=== PATIENT | male | born 1955 | race African-American/Black ===

== ENCOUNTER 2018-01-14 12:59 | Emergency (ER) | payer BC ==
[2018-01-14] MEDS ORDERED: Lidocaine 1% w/Epinephrine 1:100K 20 ML VIAL ONE (14:09)
--- NOTE | 2018-01-14 14:48 | RAD ---
LUMBAR SPINE 3 VIEWS: HISTORY: The patient fell off a stool, hitting back. Back pain. Back surgery 2 months ago. COMPARISON: None. FINDINGS: There are bilateral transpedicular screws at L4, L5, and S1. Lumbar spine vertebral body height is m aintained. No fracture. There are 5 lumbar-type vertebral bodies. There are laminectomy defects at L4 on L5. There appears to be perihardware lucency involving bilateral transpedicular screws at S1. There is anterolisthesis of L5 upon S1 which is difficult to assess on the current examination. Ther e is grade I retrolisthesis of L3 upon L4. IMPRESSION: 1. No evidence of fracture. 2. Lumbar fusion changes as above. There appear to be perihardware lucencies involving both transpe dicular screws at S1. POS: [facility]
[2018-01-14] MEDS ORDERED: Adacel (T-DAP) 0.5 ML VIAL ONE (15:13)
[2018-01-14] MEDS ORDERED: Bacitracin Zinc 1 Packet ONE (16:55)
== END 2018-01-14 17:02 | disposition home or self-care (01) ==
LOC: ERS 12:59
DX: S31.010A Laceration without foreign body of lower back and pelvis without penetration into retroperitoneum, initial encounter (principal); E11.9 Type 2 diabetes mellitus without complications; I10 Essential (primary) hypertension; E78.00 Pure hypercholesterolemia, unspecified; K21.9 Gastro-esophageal reflux disease without esophagitis; Z79.899 Other long term (current) drug therapy; W01.0XXA Fall on same level from slipping, tripping and stumbling without subsequent striking against object, initial encounter
CPT/HCPCS: 12002; 72100; 90471; 90715; J2001

== ENCOUNTER 2018-01-20 13:31 | Outpatient (CLI) | payer BC, OTHER ==
--- NOTE | 2018-01-20 13:58 | RAD ---
LUMBAR SPINE SERIES 2 VIEWS: HISTORY: Low back pain. COMPARISON: A 01/14/18 study. FINDINGS: Postoperative changes with bilateral pedicle screws placed L4, L5, and S1 are noted. Marked spondylo listhesis of L5 on S1 appears to be fairly similar to the previous study. I do not see any definite interval change since the prior exam. IMPRESSION: Stable exam. POS: [facility]
== END 2018-01-20 13:32 | disposition home or self-care (01) ==
LOC: TBSIIMAG 13:31
PROVIDERS: ATTEND Neurological Surgery
DX: M54.5 Low back pain (principal)
CPT/HCPCS: 72100

== ENCOUNTER 2018-04-21 12:42 | Outpatient (CLI) | payer BC ==
--- NOTE | 2018-04-21 13:25 | RAD ---
LUMBAR SPINE 2 VIEWS: INDICATION: Lumbar radiculopathy. COMPARISON: Lumbar films of 01/20/18. FINDINGS: Pedicle screws and rods again noted at L4, L5, and S1. Grade II spondylolisthesis at L5-S1 with loss of disk space at L5-S1 again noted. Otherwise, alignment is normally preserved. Moderate degenerat matty changes are seen with spurring from all lumbar vertebrae. Loss of disk space is noted at all lev els of the lumbar spine, stable. IMPRESSION: Postoperative and degenerative changes of the lumbar spine showed no significant change from 01/20/18. POS: [facility]
== END 2018-04-21 12:43 | disposition home or self-care (01) ==
LOC: TBSIIMAG 12:42
PROVIDERS: ATTEND Neurological Surgery
DX: M47.26 Other spondylosis with radiculopathy, lumbar region (principal); Z98.1 Arthrodesis status
CPT/HCPCS: 72100

== ENCOUNTER 2018-09-06 16:04 | Outpatient (CLI) | payer BC ==
--- NOTE | 2018-09-06 17:24 | RAD ---
2 VIEWS LUMBOSACRAL SPINE: Date: 09/06/18 COMPARISON: 04/21/18. HISTORY: Multiple falls. Low back pain. FINDINGS: Two views lumbosacral spine show the patient to be status post posterior fusion at L4-S1 with bilater al pedicle screws. There is stable Grade II anterolisthesis of L5 on S1. No perihardware lucency is s een surrounding the upper screws, but there is lucency seen surrounding the bilateral L5 pedicle scre ws. IMPRESSION: Postsurgical changes of the lumbar spine as above. POS: [facility]
== END 2018-09-06 16:05 | disposition home or self-care (01) ==
LOC: TBSIIMAG 16:04
PROVIDERS: ATTEND Neurological Surgery
DX: M54.5 Low back pain (principal); Z98.1 Arthrodesis status
CPT/HCPCS: 72100

== ENCOUNTER 2018-11-10 07:13 | Day surgery (SDC) | payer BC ==
[2018-11-09 11:29] VITALS: BMI 26.4
[2018-11-10 08:23] VITALS: BP 115/74; TEMP 99.4
--- NOTE | 2018-11-10 11:13 | CT ---
CT CERVICAL SPINE WITH CONTRAST CT CERVICAL MYELOGRAM: Reference the myelogram report for technical details regarding the procedure. Indication: Cervical radiculopathy in a 63-year-old male. FINDINGS: The craniocervical junction is intact. There is a moderate kyphosis which is centered at the C5 level . ACDF present at C3-4 with intervening disc space prosthesis. No acute hardware complication identif ied. C1-2: No significant central canal or foraminal stenosis. C2-3: No significant central canal or foraminal stenosis. C3-4: There is a broad based osteophyte with mild central canal stenosis and mild ventral cord efface ment. Bilateral uncinate process and facet hypertrophy result in moderate osseous compromise of the b ilateral neural foramina. C4-5: There is mild central canal stenosis and broad based osteophyte. Bilateral uncinate process and facet hypertrophy present with moderate left and mild right neural foraminal narrowing. C5-6: There is a broad based disc osteophyte with moderate central canal stenosis and associated cord flattening. Severe right and moderate to severe left neural foraminal stenosis is present with promi nent bilateral uncinate process as well as facet hypertrophy. C6-7: Mild to moderate central canal stenosis with associated cord flattening, more notable to the ri ght of midline as a result of broad based osteophyte. There is severe left and moderate to severe rig ht neural foraminal stenosis due to prominent uncinate process and facet hypertrophy, left greater th an right. C7-T1: Broad based disc osteophyte results in moderate central canal stenosis with ventral cord effac ement. There is moderate bilateral neural foraminal narrowing. IMPRESSION: 1. Prominent multilevel degenerative change throughout the cervical spine as outlined above, which re sults in bilateral multilevel neural foraminal stenosis, as well as mild to moderate central canal st enosis and associated cord effacement. 2. Incidental note of ectasia of the partially imaged aortic arch approximately 4 cm. Recommend dedic ated imaging follow up for further assessment. POS: [facility]
--- NOTE | 2018-11-10 11:25 | RAD ---
CERVICAL AND LUMBAR SPINE MYELOGRAM: HISTORY: Cervical radiculopathy. Lumbar radiculopathy. EXPOSURE: 0.5 minutes. 376.5 mCi*^m2. FINDINGS: Initial 2-view residential coordinator cervical spine radiograph demonstrates a cervical fusion plate at C3 and C4. No evidence of perihardware lucency. Limited evaluation of the cervical spine on the lateral projectio n. On the AP projection, there is evidence of moderate to severe degenerative change at C4-C5 and C5 -C6. Two views lumbar spine demonstrate bilateral transpedicular screws at L3, L4, and L5. Bilateral shah spedicular screws at L4, L5, and S1. There is evidence of perihardware lucency involving bilateral S 1 transpedicular screws. On the lateral projection, 1.7 mm of anterolisthesis of L5 upon S1. Verteb ral body height is maintained. No fracture. There is 3.8 mm of retrolisthesis of L2 upon L3, 4.2 mm of retrolisthesis of L3 upon L4. Successful lumbar puncture for cervical lumbar myelogram. 9 cc of Isovue-M 300 contrast was administ ered intrathecally. The patient tolerated the procedure well. No immediate or postprocedure complic ations. TECHNIQUE: Consent was obtained to perform a lumbar puncture under fluoroscopic guidance for a cervical and lumb ar myelogram. The patient's back was evaluated. The L1-2 level was deemed appropriate. The skin wa s prepped and draped in sterile fashion. 1% Lidocaine, buffered with sodium bicarbonate, was used fo r local anesthesia. Under fluoroscopic guidance, a 22-gauge spinal needle was advanced into the CSF space. The inner stylette was removed. Prompt flow of CSF into the hub of needle. Via a short tubi ng catheter, a total of 9 cc of Isovue 300 contrast was administered intrathecally. The patient tole rated the procedure well. No immediate or postprocedure complications. IMPRESSION: Successful lumbar puncture for cervical and thoracic myelogram. Refer to separate report for further detail. POS: [facility]
--- NOTE | 2018-11-10 12:19 | CT ---
POST MYELOGRAM LUMBAR SPINE CT: History: Lumbar radiculopathy. Comparison: None. FINDINGS: There are five lumbar type vertebral bodies. Lumbar spine vertebral body height is maintained. There is no fracture. 3.2 mm of retrolisthesis of L2 upon L3, 2.8 mm retrolisthesis of L3 upon L4, 9 mm ret rolisthesis of L5 upon S1. Vacuum disc phenomenon at L2-3, L3-4, and L5-S1. Bilateral transpedicular screws at L4, L5, and S1. Perihardware lucency involving bilateral transpedicular screws at S1 as wel l as the left transpedicular screw at L4. The right transpedicular screw at L5 appears to be within t he right aspect of the disc space. Conus medullaris terminates at the inferior aspect of L1. Nonobstructing calculus in the left renal p marcio measuring 0.5 cm. T11-12, T12-L1: No high grade central canal stenosis or high grade neural foraminal narrowing. L1-2: No high grade central canal stenosis. Neural foramina are patent. L2-3: Vacuum disc phenomenon. Broad based disc bulge, ligamentum flavum thickening, and facet hypertr ophy result in mild central canal stenosis. Right neural foramen is patent. Mild to moderate left for aminal narrowing. L3-4: Vacuum disc phenomenon. Posterior laminectomy defect. Abnormal soft tissue at the laminectomy d efect site. There appears to be generalized disc bulge. There is resultant moderate central canal vinicius nosis. Moderate to severe right and severe left foraminal narrowing. L4-5: Posterior laminectomy defect. Abnormal soft tissue at the laminectomy site likely representing scar tissue. There is no evidence of high grade central canal stenosis. Moderate bilateral foraminal narrowing. L5-S1: Posterior laminectomy defect. No high grade central canal stenosis. Severe bilateral foraminal narrowing. IMPRESSION: 1. Degenerative changes of the lumbar spine as above. There is moderate central canal stenosis at L3- 4. 2. Significant neural foraminal narrowing as detailed above. 3. Lumbar fusion as described above. Bilateral transpedicular screws, perihilar lucency at S1. There is also perihilar lucency involving the left transpedicular screw at L4. The right transpedicular scr ew at L5 does not appear to be in the vertebral body but rather in the disc space. 4. Spondylolisthesis as above. POS: [facility]
== END 2018-11-10 11:30 | disposition home or self-care (01) ==
LOC: RAD 07:13
PROVIDERS: ATTEND Neurological Surgery
PROC: B01B1ZZ Fluoroscopy of Spinal Cord using Low Osmolar Contrast (ICD-10-PCS; principal; 2018-11-10)
DX: M54.12 Radiculopathy, cervical region (principal); M48.02 Spinal stenosis, cervical region; M43.16 Spondylolisthesis, lumbar region; Z79.1 Long term (current) use of non-steroidal anti-inflammatories (NSAID); Z79.899 Other long term (current) drug therapy; Z98.890 Other specified postprocedural states; Z98.1 Arthrodesis status
CPT/HCPCS: 62305; 72126; 72132

== ENCOUNTER 2020-07-31 13:14 | Emergency (ER) | payer MEDICARE, OTHER ==
[2020-07-31] MEDS ORDERED: Iopamidol-370 76% 500 ML 1 ML ONE (13:38)
--- NOTE | 2020-07-31 14:22 | RAD ---
LEFT KNEE 4 VIEWS: Date: 07/31/2020 HISTORY: Fall, injury, left knee pain. FINDINGS/IMPRESSION: Degenerative changes are present. No acute fracture or dislocation is identified. POS: [facility]
--- NOTE | 2020-07-31 14:32 | RAD ---
LEFT HIP TWO VIEWS: 07/31/20 HISTORY: Fall, injury, left hip pain. FINDINGS/IMPRESSION: No acute fracture or dislocation is identified. POS: [facility]
[2020-07-31 16:38] LABS: Anion Gap 12 mmol/L (10-20); BUN (Urea Nitrogen) 7 mg/dL (8.4-25.7); Calc. Creatinine Clearance 0 mL/min (70-130); Carbon Dioxide 30 mmol/L (23-31); Chloride 99 mmol/L (98-107); Estimated GFR-MDRD Greater than 90; Glucose 253 mg/dL (80-115); Potassium 3.3 mmol/L (3.5-5.1); Sodium 138 mmol/L (136-145)
[2020-07-31 16:38] LABS: Bilirubin Small (Negative); Blood, Urine Negative (Negative); Glucose, Urine (Dipstick) 500 mg/dL (Negative); Ketone, Urine Negative (Negative); Leukocyte Negative (Negative); Nitrite Negative (Negative); Protein, Urine (Dipstick) Negative (Neg-Trace); Specific Gravity, Urine 1.025 (1.005-1.030); Urobilinogen > or = 8.0 mg/dL (Less than 2)
[2020-07-31 16:44] LABS: Clarity Clear (Clear)
[2020-07-31 16:54] LABS: Bacteria/HPF None Seen HPF (None Seen); Mucous/LPF 1+ LPF (<2+); RBC/HPF 0-3 HPF (0-3)
--- NOTE | 2020-07-31 17:02 | CT ---
CT OF THE ABDOMEN AND PELVIS WITH IV CONTRAST INDICATION: History of fall one week ago with abdominal pain and left hip pain COMPARISON: Prior CT abdomen pelvis dated April 27, 2012 FINDINGS: ABDOMEN: Lung bases: Clear Liver: There is a cirrhotic morphology of the liver. Gallbladder: Surgically absent Pancreas: Normal. Adrenal glands: Normal. Spleen: Upper limits of normal measuring 12.4 cm. Kidneys and ureters: There is a 4 mm nonobstructing stone within the superior pole left kidney which is stable. No focal renal lesion is evident. No hydronephrosis is demonstrated. Vasculature: There are moderate vascular calcifications seen involving the visualized vasculature. Lymph nodes:No lymphadenopathy. Free fluid in abdomen:No free fluid is evident. PELVIS: Small and large bowel: There is a moderate amount of retained stool within the colon. Appendix:Normal Bladder: Normal. Rectal and perirectal soft tissues:Normal. Reproductive structures: Prostate is enlarged measuring 5 cm. Free fluid in pelvis: No free fluid is evident. Lymphadenopathy pelvis: No lymphadenopathy is evident. Osseous structures: There are healed rib deformities involving the lateral left ninth and 10th ribs. There is postsurgical change of a posterior lateral interbody fusion of L4-S1. There is grade 2 spondylolisthesis of L5 on S1. There is scattered degenerative and osteoarthritic changes. Soft tissues:Normal. IMPRESSION: 1. No acute traumatic injury seen involving the abdomen or pelvis. 2. Cirrhotic morphology of the liver. 3. Stable left nephrolithiasis. 4. Moderate amount retained stool within colon. 5. Prostate enlargement.
== END 2020-07-31 17:20 | disposition home or self-care (01) ==
LOC: ERS 13:14
DX: S70.02XA Contusion of left hip, initial encounter (principal); M25.562 Pain in left knee; E11.9 Type 2 diabetes mellitus without complications; E78.00 Pure hypercholesterolemia, unspecified; K21.9 Gastro-esophageal reflux disease without esophagitis; Z79.899 Other long term (current) drug therapy; W18.30XA Fall on same level, unspecified, initial encounter
CPT/HCPCS: 74177; 80048; 81003; Q9967

== ENCOUNTER 2020-08-12 12:32 | Emergency (ER) | payer MEDICARE ==
[2020-08-12 13:15] LABS: #Basophils 0.1 thou/uL (0.0-0.2); #Lymphocytes 1.9 thou/uL (1.20-3.40); #Monocytes 0.6 thou/uL (0.11-0.59); #Neutrophils 2.8 thou/uL (1.40-6.50); %Basophils 1.9 % (0.0-1.0); %Eosinophils 0.8 % (0.0-10.0); %Lymphocytes 34.5 % (21.0-51.0); %Monocytes 10.8 % (0.0-10.0); %Neutrophils 52.1 % (42.0-75.0); Hemoglobin 14.7 g/dL (14.0-18.0); Mean Corpuscular HGB CONC 32.7 g/dL (32.0-36.0); Platelet Count 122 thou/uL (130-400); RBC Distribution Width 13.3 % (11.5-14.5); Red Blood Cell (RBC) Count 4.59 mill/uL (4.70-6.10); White Blood Cell (WBC) Count 5.4 thou/uL (4.8-10.8)
[2020-08-12 13:28] LABS: ALT (SGPT) 76 U/L (8-55); AST (SGOT) 115 U/L (5-34); Albumin 3.1 g/dL (3.4-4.8); Alkaline Phosphatase 90 U/L (40-110); Anion Gap 13 mmol/L (10-20); BUN (Urea Nitrogen) 7 mg/dL (8.4-25.7); Bilirubin, Total 2.7 mg/dL (0.2-1.2); CK (CPK) 176 U/L (30-200); Calc. Creatinine Clearance 0 mL/min (70-130); Calcium 8.7 mg/dL (7.8-10.44); Carbon Dioxide 28 mmol/L (23-31); Chloride 103 mmol/L (98-107); Estimated GFR-MDRD Greater than 90; Globulin 5.2 g/dL (2.4-3.5); Glucose 140 mg/dL (80-115); Potassium 3.3 mmol/L (3.5-5.1); Protein, Total 8.3 g/dL (5.8-8.1); Sodium 141 mmol/L (136-145)
[2020-08-12 13:58] LABS: Bilirubin Negative (Negative); Blood, Urine Negative (Negative); Clarity Clear (Clear); Glucose, Urine (Dipstick) Normal (Negative); Ketone, Urine Negative (Negative); Leukocyte Negative Leu/uL (Negative); Nitrite Negative (Negative); Protein, Urine (Dipstick) Negative (Neg-Trace); Specific Gravity, Urine 1.017 (1.002-1.036); Urobilinogen Greater than 12 mg/dL (Less than 2); pH, Urine 6.5 (5.0-9.0)
== END 2020-08-12 17:04 | disposition home or self-care (01) ==
LOC: ERS 12:32
DX: M54.5 Low back pain (principal); M79.605 Pain in left leg; E11.9 Type 2 diabetes mellitus without complications; I10 Essential (primary) hypertension; E78.00 Pure hypercholesterolemia, unspecified; K21.9 Gastro-esophageal reflux disease without esophagitis; Z79.899 Other long term (current) drug therapy
CPT/HCPCS: 80053; 81003; 82550; 84484; 85025; 93005

== ENCOUNTER 2020-09-27 19:36 | Inpatient (IN) | payer MEDICARE ==
--- NOTE | 2020-09-27 20:26 | CT ---
CT HEAD WITHOUT IV CONTRAST COMPARISON: None HISTORY: Injury after fall 2 days ago. TECHNIQUE: Axial CT imaging at 5 mm intervals from vertex through skull base without contrast FINDINGS: There is decreased attenuation in the periventricular white matter which is nonspecific but likely re flective of chronic small vessel ischemic changes. There is mild cerebral volume loss. The ventricular system is normal in size, shape, and position for the degree of sulcal atrophy. There is no evidence of an acute infarction, hemorrhage, mass effect, or midline shift. Skull base has a normal CT appearance. Visualized paranasal sinuses are clear. Osseous structures appear intact. Prominent dural-based calcifications are seen along the interhemisp heric falx. IMPRESSION: 1. No acute intracranial abnormality demonstrated. 2. Chronic small vessel ischemic changes and cerebral volume loss.
[2020-09-27 20:40] LABS: #Basophils 0.1 thou/uL (0.0-0.2); #Eosinphils 0.1 thou/uL (0.0-0.7); #Lymphocytes 1.6 thou/uL (1.20-3.40); #Monocytes 0.5 thou/uL (0.11-0.59); #Neutrophils 2.2 thou/uL (1.40-6.50); %Basophils 1.7 % (0.0-1.0); %Eosinophils 2.4 % (0.0-10.0); %Lymphocytes 36.1 % (21.0-51.0); %Monocytes 10.8 % (0.0-10.0); Hemoglobin 13.2 g/dL (14.0-18.0); Mean Corpuscular Hemoglobin 32.3 pg (27.0-31.0); Mean Corpuscular Volume 97.8 fL (78.0-98.0); Mean Platelet Volume 8.4 fL (7.4-10.4); Platelet Count 146 thou/uL (130-400); RBC Distribution Width 13.2 % (11.5-14.5); Red Blood Cell (RBC) Count 4.08 mill/uL (4.70-6.10); White Blood Cell (WBC) Count 4.4 thou/uL (4.8-10.8)
--- NOTE | 2020-09-27 20:41 | CT ---
CT lumbar spine without contrast: HISTORY: Lower back pain after a fall 2 days ago. COMPARISON: 11/10/2018 FINDINGS: Nonobstructing calculus is again present in the midportion left kidney. Vascular calcifications are s een in the abdominal aorta and iliac arteries. Moderate amount of retained fecal material seen in the visualized colon. The vertebral body heights of the lumbar spine are within normal limits. No fracture is seen. There is stable slight retrolisthesis of L2 on L3 and L3 on L4 with grade 1 anterolisthesis of L5 on S1. However, the degree of anterolisthesis has progressed from the prior study previously measuring 9 mm and now measures 12 mm. Vacuum disc phenomenon is again seen in the L2-3, L3-4, and L5-S1 intervertebral discs. Hardware luce ncies are again seen involving the bilateral S1 pedicular screws with hardware lucencies also seen involving the bilateral L4 pedicular screws. The right-sided pedicular screw at L5 extends along the superior aspect of the L5 vertebral body and into the intervertebral disc. L1-2: Loss of intervertebral disc height. Disc osteophyte complex is present with suggestion of mild central canal narrowing. Neural foramina are patent. L2-3: Laminectomy defect seen posteriorly. Facet hypertrophic changes are seen at this level with mod erate left and mild right-sided neural foraminal narrowing. Disc osteophyte complex at this level is present, and there is mild to moderate central canal narrowing. L3-4: There is suggestion of increased density in the central canal surrounding the thecal sac. There is similar finding compared to the prior exam. There is significant artifact through this region which may account for this finding and the central canal is not well delineated or evaluated on this exam. There is likely moderate central canal narrowing. Severe left and moderate to severe right-sided neural foraminal narrowing are again present. L4-5: Laminotomy defect posteriorly. There is significant artifact through this level which limits ev aluation of the central spinal canal. Moderate bilateral neural foraminal narrowing is present area L5-S1: Increase in degree of anterolisthesis of L5 on S1 as described above. Severe bilateral neural foraminal narrowing is again present. Portions of the central spinal canal at this level are obscured due to artifact from pedicular screws. IMPRESSION: 1. No evidence for fracture. 2. Postoperative changes lower lumbar spine. Hardware complication is present with perihardware lucen cies involving the bilateral L4 and S1 pedicular screws. The right L5 pedicular screw extends into the intervertebral disc. 3. Interval increase in degree of grade 1 anterolisthesis of L5 on S1 which measures 12 mm on current study and previously measured 9 mm. 4. Obscuration of portions of the central spinal canal at level of postoperative change. There is que stion of increased density material within the central canal at the L3-4 level which could be related to either scar tissue or artifactual due to artifact from the pedicular screws. 5. Multilevel degenerative changes with varying degrees of neural foraminal narrowing.
[2020-09-27] MEDS ORDERED: HYDROcodone/Acetaminophen 10/325 mg Tablet ONE (20:50)
[2020-09-27 20:54] LABS: Bilirubin Negative (Negative); Blood, Urine Negative (Negative); Clarity Clear (Clear); Glucose, Urine (Dipstick) Normal (Negative); Ketone, Urine Negative (Negative); Leukocyte Negative Leu/uL (Negative); Nitrite Negative (Negative); Protein, Urine (Dipstick) Negative (Neg-Trace); Specific Gravity, Urine 1.018 (1.002-1.036); Urobilinogen Greater than 12 mg/dL (Less than 2); pH, Urine 6.5 (5.0-9.0)
[2020-09-27 21:03] LABS: ALT (SGPT) 39 U/L (8-55); AST (SGOT) 71 U/L (5-34); Albumin 2.8 g/dL (3.4-4.8); Alkaline Phosphatase 90 U/L (40-110); Anion Gap 14 mmol/L (10-20); BUN (Urea Nitrogen) 4 mg/dL (8.4-25.7); Bilirubin, Total 2.3 mg/dL (0.2-1.2); Calc. Creatinine Clearance 0 mL/min (70-130); Calcium 8.1 mg/dL (7.8-10.44); Carbon Dioxide 27 mmol/L (23-31); Chloride 107 mmol/L (98-107); Globulin 5.3 g/dL (2.4-3.5); Glucose 148 mg/dL (80-115); Potassium 3.6 mmol/L (3.5-5.1); Protein, Total 8.1 g/dL (5.8-8.1); Sodium 144 mmol/L (136-145)
--- NOTE | 2020-09-27 22:13 | ULT ---
Venous duplex sonogram bilateral lower extremity HISTORY: Bilateral leg pain and edema. FINDINGS: Each common femoral vein and greater saphenous junction were evaluated along with each femo ral, deep femoral, popliteal, and posterior tibial vein. There is good color and spectral Doppler flow, compression, and augmentation. IMPRESSION : Normal exam.
[2020-09-27] MEDS ORDERED: Morphine 2 MG/ML VIAL ONE (22:47)
[2020-09-27] MEDS ORDERED: cefTRIAXone\\ROCEPHIN 1 GM VIAL ONE (22:48)
[2020-09-27 23:25] LABS: Lactic Acid 1.8 mmol/L (0.5-2.2)
[2020-09-27] MEDS ORDERED: Furosemide 20 MG/2 ML VIAL ONE (23:30)
[2020-09-27] MEDS ORDERED: Ketorolac Tromethamine 30 MG/ML VIAL ONE (23:30)
[2020-09-27] MEDS ORDERED: Furosemide 40 MG TAB ONE (23:37)
[2020-09-27] MEDS ORDERED: Hydrochlorothiazide 25 MG TAB PO SCH (23:45)
[2020-09-27] MEDS ORDERED: Carvedilol 6.25 MG TAB PO SCH (23:45)
[2020-09-28] MEDS ORDERED: Calcium Carbonate 500 MG ChewTAB PO PRN (01:04)
[2020-09-28] MEDS ORDERED: Acetaminophen 325 MG TAB PO PRN (01:04)
[2020-09-28] MEDS ORDERED: HYDROcodone/Acetaminophen 7.5/325 mg Tablet PO PRN (01:04)
[2020-09-28] MEDS ORDERED: Acetaminophen 650 MG Suppository PR PRN (01:04)
--- NOTE | 2020-09-28 01:10 | PDOC.HHP ---
Hospitalist HPI - History of Present Illness leg pain History of Present Illness: Case of an 65y/o male with a pmhx of hep c, DM, htn, hld, chronic back pain who comes to hospital complaining of L leg pain. patient states he was on his usual state of health until 2 weeks ago when he noted a hole on the medial aspect of his leg, he came to evaluated and was discharge home with some abx he cannot recall. he state that since then area has become worse with erythema pain, and supuration. he states pain is 10/10, denies any fever chills nausea vomiting or diarrhea. of note patient states he has not taken any of his medication for about a month because he ran out and has no pcp. Hospitalist ROS - Review of Systems All other systems reviewed; all pertinent +/- noted in HPI/Subj Hospitalist History - Past Surgical History Past Surgical History: reports: Cholecystectomy Other Surgical History: multiple back surgeries - Family History Family History: reports: hypertension - Social History Smoking Status: Former smoker Alcohol: reports: None Drugs: reports: none Living Situation: With Family - Exam General Appearance: NAD, awake alert Eye: PERRL, anicteric sclera ENT: normocephalic atraumatic, no oropharyngeal lesions Neck: supple, symmetric, no JVD Heart: RRR, no murmur, no gallops Respiratory: CTAB, no wheezes, no rales Gastrointestinal: soft, non-tender, non-distended Extremities - other findings: L leg w open wound lesion w erythem and suppuration Neurological: cranial nerve grossly intact, normal sensation to touch Musculoskeletal: normal tone, normal strength Psychiatric: normal affect, normal behavior, A&O x 3 Hospitalist Results - Labs Result Diagrams: 09/27/20 20:30 09/27/20 20:30 Lab results: WBC 4.4 thou/uL (4.8-10.8) L 09/27/20 20:30 Hgb 13.2 g/dL (14.0-18.0) L 09/27/20 20:30 Hct 39.9 % (42.0-52.0) L 09/27/20 20:30 MCV 97.8 fL (78.0-98.0) 09/27/20 20:30 Plt Count 146 thou/uL (130-400) 09/27/20 20:30 Neutrophils % 49.0 % (42.0-75.0) 09/27/20 20:30 Sodium 144 mmol/L (136-145) 09/27/20 20:30 Potassium 3.6 mmol/L (3.5-5.1) 09/27/20 20:30 Chloride 107 mmol/L (98-107) 09/27/20 20:30 Carbon Dioxide 27 mmol/L (23-31) 09/27/20 20:30 BUN 4 mg/dL (8.4-25.7) L 09/27/20 20:30 Creatinine 0.81 mg/dL (0.7-1.3) 09/27/20 20:30 Glucose 148 mg/dL (80-115) H 09/27/20 20:30 Lactic Acid 1.8 mmol/L (0.5-2.2) 09/27/20 23:06 Calcium 8.1 mg/dL (7.8-10.44) 09/27/20 20:30 Total Bilirubin 2.3 mg/dL (0.2-1.2) H 09/27/20 20:30 AST 71 U/L (5-34) H 09/27/20 20:30 ALT 39 U/L (8-55) 09/27/20 20:30 Alkaline Phosphatase 90 U/L (40-110) 09/27/20 20:30 Troponin I 0.015 ng/mL (< 0.028) 09/27/20 20:30 B-Natriuretic Peptide 16.5 pg/mL (0-100) 09/27/20 20:30 Serum Total Protein 8.1 g/dL (5.8-8.1) 09/27/20 20:30 Albumin 2.8 g/dL (3.4-4.8) L 09/27/20 20:30 Urine Ketones Negative mg/dL (Negative) 09/27/20 20:33 Urine Blood Negative (Negative) 09/27/20 20:33 Urine Nitrite Negative (Negative) 09/27/20 20:33 Ur Leukocyte Esterase Negative Angel/uL (Negative) 09/27/20 20:33 Hospitalist H&P A/P - Problem (1) Cellulitis Code(s): L03.90 - CELLULITIS, UNSPECIFIED Status: Acute (2) Hepatitis C Code(s): B19.20 - UNSPECIFIED VIRAL HEPATITIS C WITHOUT HEPATIC COMA Status: Acute (3) HTN (hypertension) Code(s): I10 - ESSENTIAL (PRIMARY) HYPERTENSION Status: Acute (4) Diabetes Code(s): E11.9 - TYPE 2 DIABETES MELLITUS WITHOUT COMPLICATIONS Status: Acute - Plan Plan: Case of an 65y/o male with the stated pmhx who presents with cellulitis cellulitis - failied out pt therapy - will start zosyn + vanc - wound care - venous us negative for dvt - will get arterial us to evaluate perfusion - wound care evaluation - pain management DM - acc+ss htn - continue home meds
[2020-09-28] MEDS ORDERED: Dextrose 50% Abboject 50 ML SYRINGE SLOW IVP PRN (01:15)
[2020-09-28] MEDS ORDERED: Dextrose 5% in Water 1,000 ML IV PRN (01:15)
[2020-09-28] MEDS: Piperacillin/Tazobactam 3.375 GM in Sodium Chloride 0.9% 100 ML IVPB SCH ×4 (01:47→21:13)
[2020-09-28] MEDS: Sodium Chloride 0.9% 1,000 ML IV SCH ×2 (01:47→21:15)
[2020-09-28] MEDS: HYDROcodone/Acetaminophen 7.5/325 mg Tablet PO PRN ×3 (03:06→13:44)
[2020-09-28] MEDS: Vancomycin HCl 1.25 GM in Sodium Chloride 0.9% 250 ML 250 ML IVPB SCH ×2 (03:07→15:26)
[2020-09-28] MEDS: HumaLOG 300 UNITS/3 ML VIAL SC PRN (06:00)
[2020-09-28 07:05] LABS: Anion Gap 12 mmol/L (10-20); BUN (Urea Nitrogen) 5 mg/dL (8.4-25.7); Calc. Creatinine Clearance 96 mL/min (70-130); Carbon Dioxide 27 mmol/L (23-31); Chloride 104 mmol/L (98-107); Potassium 3.1 mmol/L (3.5-5.1); Sodium 140 mmol/L (136-145)
[2020-09-28 07:06] LABS: ALT (SGPT) 43 U/L (8-55); AST (SGOT) 71 U/L (5-34); Albumin 2.7 g/dL (3.4-4.8); Alkaline Phosphatase 88 U/L (40-110); Bilirubin, Total 2.3 mg/dL (0.2-1.2); Calcium 8.2 mg/dL (7.8-10.44); Globulin 5.4 g/dL (2.4-3.5); Glucose 153 mg/dL (80-115); Protein, Total 8.1 g/dL (5.8-8.1)
[2020-09-28 08:08] LABS: Band 1 % (5-11); Eosinophils 2 % (0-10); Hemoglobin 13.3 g/dL (14.0-18.0); Lymphocytes 47 % (21-51); MDiff Complete? YES; Mean Corpuscular HGB CONC 32.8 g/dL (32.0-36.0); Mean Corpuscular Hemoglobin 32.1 pg (27.0-31.0); Mean Corpuscular Volume 97.8 fL (78.0-98.0); Mean Platelet Volume 9.3 fL (7.4-10.4); Monocytes 4 % (0-10); Neutrophil 45 % (42-75); Platelet Count 137 thou/uL (130-400); RBC Distribution Width 13.2 % (11.5-14.5); Red Blood Cell (RBC) Count 4.14 mill/uL (4.70-6.10); White Blood Cell (WBC) Count 5.9 thou/uL (4.8-10.8)
[2020-09-28] MEDS: Enoxaparin Sodium 40 MG/0.4 ML SYRINGE SC SCH (08:30)
[2020-09-28] MEDS: Furosemide 20 MG TAB PO SCH (08:31)
[2020-09-28] MEDS: Gabapentin 400 MG CAP PO SCH ×4 (08:31→21:13)
[2020-09-28] MEDS: Carvedilol 6.25 MG TAB PO SCH (08:31)
[2020-09-28] MEDS: Hydrochlorothiazide 25 MG TAB PO SCH (08:33)
[2020-09-28 10:16] LABS: SARS-CoV-2 MS2 Positive; SARS-CoV-2 N Gene Negative; SARS-CoV-2 S Gene Negative; SARS-CoV-2 by NAA Not Detected (NotDetected); SARS-CoV-2 orf1ab Negative
[2020-09-28 13:25] VITALS: BMI 24.4
--- NOTE | 2020-09-28 13:46 | ULT ---
Arterial duplex sonogram bilateral lower extremity HISTORY: Leg ulcers. Vascular disease. FINDINGS: Good color and spectral Doppler flow evident within each femoral, deep femoral and femoral, popliteal artery. The anterior tibial, posterior tibial, and dorsalis pedis arteries are scattered by bandages. Right: No abnormally elevated peak systolic velocities. Triphasic waveform demonstrated in the common femoral artery and the mid to distal portion of the femoral artery. Monophasic flow within the profunda artery and popliteal artery. Left: Triphasic waveform within the common femoral artery. Biphasic waveform in the profunda femoral artery. Monophasic flow demonstrated within the femoral artery and popliteal artery. Peak systolic velocity o f the femoral artery is 158 cm/s. IMPRESSION : Good arterial flow documented to the level of each popliteal artery. Lower legs obscured by bandages. Dampened pulsatility and slightly elevated velocities in the left leg suggestive of possibly signific ant stenoses. Consider correlation with conventional or CT arteriography.
--- NOTE | 2020-09-28 16:48 | PDOC.BPN ---
- Brief Progress Note Patient was seen examined at bedside. This is a 65 years old -[place] gentleman who has significant past medical history of hepatitis C, diabetes, hypertension dyslipidemia, chronic back pain, who presented to ED with complaint of left leg pain. Unfortunately, he failed outpatient therapy. He was admitted for cellulitis, he is currently tolerating IV antibiotic with Zosyn and vancomycin. Patient was seen by wound care and had his dressing changed. Continue current management. Resume home medication for
[2020-09-28] MEDS: HYDROcodone/Acetaminophen 10/325 mg Tablet PO PRN (18:41)
[2020-09-28] MEDS: traMADol HCl 50 MG TAB PO SCH (21:10)
[2020-09-29] MEDS: HYDROcodone/Acetaminophen 10/325 mg Tablet PO PRN ×2 (00:28→08:23)
[2020-09-29] MEDS: Piperacillin/Tazobactam 3.375 GM in Sodium Chloride 0.9% 100 ML IVPB SCH ×4 (02:12→20:44)
[2020-09-29] MEDS ORDERED: Morphine 2 MG/ML VIAL SLOW IVP SCH (03:00)
[2020-09-29] MEDS: Vancomycin HCl 1.25 GM in Sodium Chloride 0.9% 250 ML 250 ML IVPB SCH ×2 (03:31→15:48)
[2020-09-29 06:21] LABS: #Basophils 0.1 thou/uL (0.0-0.2); #Eosinphils 0.2 thou/uL (0.0-0.7); #Lymphocytes 2.5 thou/uL (1.20-3.40); #Monocytes 0.6 thou/uL (0.11-0.59); #Neutrophils 1.9 thou/uL (1.40-6.50); %Basophils 0.9 % (0.0-1.0); %Eosinophils 4.6 % (0.0-10.0); %Lymphocytes 48.1 % (21.0-51.0); %Neutrophils 35.4 % (42.0-75.0); Hemoglobin 12.7 g/dL (14.0-18.0); Mean Corpuscular HGB CONC 32.2 g/dL (32.0-36.0); Mean Corpuscular Hemoglobin 31.3 pg (27.0-31.0); Mean Corpuscular Volume 97.3 fL (78.0-98.0); Mean Platelet Volume 8.7 fL (7.4-10.4); Platelet Count 135 thou/uL (130-400); Red Blood Cell (RBC) Count 4.04 mill/uL (4.70-6.10); White Blood Cell (WBC) Count 5.3 thou/uL (4.8-10.8)
[2020-09-29 06:48] LABS: Anion Gap 13 mmol/L (10-20); BUN (Urea Nitrogen) 5 mg/dL (8.4-25.7); CRP (Inflammatory) 0.55 mg/dL (= or < 0.5); Calc. Creatinine Clearance 100 mL/min (70-130); Calcium 7.8 mg/dL (7.8-10.44); Carbon Dioxide 24 mmol/L (23-31); Chloride 104 mmol/L (98-107); Glucose 101 mg/dL (80-115); Potassium 3.3 mmol/L (3.5-5.1); Sodium 138 mmol/L (136-145)
[2020-09-29] MEDS: Enoxaparin Sodium 40 MG/0.4 ML SYRINGE SC SCH (08:23)
[2020-09-29] MEDS: Hydrochlorothiazide 25 MG TAB PO SCH (08:23)
[2020-09-29] MEDS: Carvedilol 6.25 MG TAB PO SCH (08:23)
[2020-09-29] MEDS: traMADol HCl 50 MG TAB PO SCH ×2 (08:24→20:40)
[2020-09-29] MEDS: Furosemide 20 MG TAB PO SCH (08:25)
[2020-09-29] MEDS: Gabapentin 400 MG CAP PO SCH ×4 (08:25→20:41)
[2020-09-29 14:31] LABS: Vancomycin, Trough 17.4 ug/mL
[2020-09-29] MEDS: HYDROcodone/Acetaminophen 7.5/325 mg Tablet PO PRN ×3 (15:10→23:01)
--- NOTE | 2020-09-29 16:37 | PDOC.HOSPP ---
- Subjective Subjective: Seen examined at bedside. No acute events overnight. He complained of back pain. No fever. Blood cultures so far no growth - Objective Vital Signs & Weight: Vital Signs (12 hours) Temp Pulse Resp BP BP Pulse Ox 09/29/20 12:27 97.7 F 92 20 97/60 97 09/29/20 08:30 99 09/29/20 07:52 97.9 F 99 20 150/89 H 99 Weight Admit Weight 169 lb 12.095 oz Weight 165 lb 5.547 oz I&O: 09/28/20 09/29/20 09/30/20 06:59 06:59 06:59 Intake Total 400 2000 Output Total 800 1350 Balance -400 650 Result Diagrams: 09/29/20 05:49 09/29/20 05:49 Additional Labs: Accuchecks 09/29/20 09/29/20 09/28/20 15:43 11:43 20:41 POC Glucose 114 H 142 H 96 09/28/20 16:58 POC Glucose 107 H Radiology Reviewed by me: Yes EKG Reviewed by me: Yes Hospitalist ROS - Medication Medications: Active Medications Generic Name Dose Route Start Last Admin Trade Name Freq PRN Reason Stop Dose Admin Acetaminophen 650 mg 09/28/20 01:04 09/29/20 16:31 Acetaminophen 325 Mg Tab PO 650 mg Q4H PRN Administration Headache/Fever/Mild Pain (1-3) Hydrocodone Bitart/Acetaminophen 2 tab 09/29/20 12:32 09/29/20 15:10 Hydrocodone/Acetaminophen 7.5/325 Mg Tablet PO 2 tab Q4H PRN Administration Moderate Pain (4-6) Carvedilol 6.25 mg 09/28/20 09:00 09/29/20 08:23 Carvedilol 6.25 Mg Tab PO 6.25 mg DAILY PRECIOUS Administration Enoxaparin Sodium 40 mg 09/28/20 09:00 09/29/20 08:23 Enoxaparin Sodium 40 Mg/0.4 Ml Syringe SC 40 mg 0900 PRECIOUS Administration Furosemide 20 mg 09/28/20 09:00 09/29/20 08:25 Furosemide 20 Mg Tab PO 20 mg DAILY PRECIOUS Administration Gabapentin 800 mg 09/28/20 21:00 09/29/20 15:11 Gabapentin 400 Mg Cap PO 800 mg TID PRECIOUS Administration Hydrochlorothiazide 25 mg 09/28/20 09:00 09/29/20 08:23 Hydrochlorothiazide 25 Mg Tab PO 25 mg DAILY PRECIOUS Administration Piperacillin Sod/Tazobactam 100 mls @ 200 mls/hr 09/28/20 02:00 09/29/20 13:33 Sod 3.375 gm/ Sodium Chloride IVPB 100 mls 0200,0800,1400,2000 PRECIOUS Administration Vancomycin HCl 1.25 gm/ Sodium 250 mls @ 166.667 mls/hr 09/28/20 03:00 09/29/20 15:48 Chloride IVPB 250 mls 0300,1500 PRECIOUS Administration Insulin Human Lispro 0 units 09/28/20 01:15 09/28/20 06:00 Humalog 300 Units/3 Ml Vial SC 2 unit .MILD SLIDING SCALE PRN Administration Mild Correctional Scale Pantoprazole Sodium 40 mg 09/29/20 09:00 09/29/20 08:23 Pantoprazole 40 Mg Tab PO 40 mg DAILY PRECIOUS Administration Tramadol HCl 50 mg 09/28/20 21:00 09/29/20 08:24 Tramadol Hcl 50 Mg Tab PO 50 mg BID PRECIOUS Administration - Exam General Appearance: NAD Eye: PERRL ENT: normocephalic atraumatic Neck: supple Heart: RRR Respiratory: CTAB Gastrointestinal: soft Extremities: no cyanosis, no clubbing Extremities - other findings: left leg wrapped in VERONICA Neurological: cranial nerve grossly intact Musculoskeletal: normal tone Psychiatric: normal affect, normal behavior, A&O x 3 Hosp A/P - Plan Patient is a pleasant 65 years old -[place] gentleman who has significant past medical history of hepatitis C, diabetes, hypertension, dyslipidemia, chronic back pain, who presented to the ED with complaint of left lower extremity pain. He was recent treated with oral abx. Acute left lower extremity cellulitis - failed outpatient therapy --cont with broad spectrum IV abx, Vanc/Zosyn --local wound cares --LE US negative for DVT. Follow BCx HTN, essential --BP stable. Resumed home meds Chronic back pain --followed by pain specialist as outpatient --cont home meds.
[2020-09-29] MEDS ORDERED: Potassium Chloride 20 MEQ TAB PO SCH (16:45)
[2020-09-30] MEDS: Piperacillin/Tazobactam 3.375 GM in Sodium Chloride 0.9% 100 ML IVPB SCH ×4 (02:39→20:05)
[2020-09-30] MEDS: HYDROcodone/Acetaminophen 7.5/325 mg Tablet PO PRN ×4 (02:41→20:49)
[2020-09-30] MEDS: Vancomycin HCl 1.25 GM in Sodium Chloride 0.9% 250 ML 250 ML IVPB SCH ×2 (04:25→15:16)
[2020-09-30 07:19] LABS: Anion Gap 9 mmol/L (10-20); BUN (Urea Nitrogen) 7 mg/dL (8.4-25.7); Calc. Creatinine Clearance 96 mL/min (70-130); Calcium 7.9 mg/dL (7.8-10.44); Carbon Dioxide 30 mmol/L (23-31); Chloride 102 mmol/L (98-107); Glucose 111 mg/dL (80-115); Potassium 3.2 mmol/L (3.5-5.1); Sodium 138 mmol/L (136-145)
[2020-09-30] MEDS: Hydrochlorothiazide 25 MG TAB PO SCH (08:42)
[2020-09-30] MEDS: Gabapentin 400 MG CAP PO SCH ×3 (08:43→20:03)
[2020-09-30] MEDS: Furosemide 20 MG TAB PO SCH (08:44)
[2020-09-30] MEDS: Potassium Chloride 20 MEQ TAB PO SCH (08:44)
[2020-09-30] MEDS: traMADol HCl 50 MG TAB PO SCH ×2 (08:44→20:02)
[2020-09-30] MEDS: Carvedilol 6.25 MG TAB PO SCH (08:44)
[2020-09-30] MEDS: Enoxaparin Sodium 40 MG/0.4 ML SYRINGE SC SCH (08:54)
[2020-09-30] MEDS: Morphine 2 MG/ML VIAL SLOW IVP PRN (12:33)
--- NOTE | 2020-09-30 16:28 | PDOC.HOSPP ---
- Subjective Subjective: c/o leg pains. we took dressing off today still having multiple ulcers, some bleeding and weeping. d/w with his daughter on the phone. Pt will need to follow up with wound care clinic regularly upon discharge and possible requires hyperbaric chamber to help promote wound healing. Pt lives by himself, transportation issue. his daughter lives in [place]. - Objective Vital Signs & Weight: Vital Signs (12 hours) Temp Pulse Resp BP BP Pulse Ox 09/30/20 08:44 158/88 H 100 09/30/20 07:38 97.3 F L 97 20 159/89 H 100 Weight Admit Weight 169 lb 12.095 oz Weight 165 lb 5.547 oz I&O: 09/29/20 09/30/20 10/01/20 06:59 06:59 06:59 Intake Total 1999 1830 477 Output Total 1350 1425 Balance 650 405 477 Result Diagrams: 09/29/20 05:49 09/30/20 06:01 Additional Labs: Accuchecks 09/30/20 09/30/20 09/29/20 11:39 05:06 20:31 POC Glucose 156 H 122 H 93 09/29/20 09/28/20 09/28/20 04:26 16:47 12:37 POC Glucose 117 H 114 H 87 Radiology Reviewed by me: Yes EKG Reviewed by me: Yes Hospitalist ROS - Medication Medications: Active Medications Generic Name Dose Route Start Last Admin Trade Name Freq PRN Reason Stop Dose Admin Acetaminophen 650 mg 09/28/20 01:04 09/29/20 16:31 Acetaminophen 325 Mg Tab PO 650 mg Q4H PRN Administration Headache/Fever/Mild Pain (1-3) Hydrocodone Bitart/Acetaminophen 2 tab 09/29/20 12:32 09/30/20 15:52 Hydrocodone/Acetaminophen 7.5/325 Mg Tablet PO 2 tab Q4H PRN Administration Moderate Pain (4-6) Carvedilol 6.25 mg 09/28/20 09:00 09/30/20 08:44 Carvedilol 6.25 Mg Tab PO 6.25 mg DAILY PRECIOUS Administration Enoxaparin Sodium 40 mg 09/28/20 09:00 09/30/20 08:54 Enoxaparin Sodium 40 Mg/0.4 Ml Syringe SC 40 mg 0900 PRECIOUS Administration Furosemide 20 mg 09/28/20 09:00 09/30/20 08:44 Furosemide 20 Mg Tab PO 20 mg DAILY PRECIOUS Administration Gabapentin 800 mg 09/28/20 21:00 09/30/20 14:08 Gabapentin 400 Mg Cap PO 800 mg TID PRECIOUS Administration Hydrochlorothiazide 25 mg 09/28/20 09:00 09/30/20 08:42 Hydrochlorothiazide 25 Mg Tab PO 25 mg DAILY PRECIOUS Administration Piperacillin Sod/Tazobactam 100 mls @ 200 mls/hr 09/28/20 02:00 09/30/20 14:09 Sod 3.375 gm/ Sodium Chloride IVPB 100 mls 0200,0800,1400,2000 PRECIOUS Administration Vancomycin HCl 1.25 gm/ Sodium 250 mls @ 166.667 mls/hr 09/28/20 03:00 09/30/20 15:16 Chloride IVPB 250 mls 0300,1500 PRECIOUS Administration Insulin Human Lispro 0 units 09/28/20 01:15 09/28/20 06:00 Humalog 300 Units/3 Ml Vial SC 2 unit .MILD SLIDING SCALE PRN Administration Mild Correctional Scale Morphine Sulfate 2 mg 09/30/20 11:29 09/30/20 12:33 Morphine 2 Mg/Ml Vial SLOW IVP 2 mg Q3H PRN Administration Pain Pantoprazole Sodium 40 mg 09/29/20 09:00 09/30/20 08:44 Pantoprazole 40 Mg Tab PO 40 mg DAILY PRECIOUS Administration Potassium Chloride 20 meq 09/30/20 08:00 09/30/20 08:44 Potassium Chloride 20 Meq Tab PO 20 meq QAM-WM PRECIOUS Administration Tramadol HCl 50 mg 09/28/20 21:00 09/30/20 08:44 Tramadol Hcl 50 Mg Tab PO 50 mg BID PRECIOUS Administration - Exam General Appearance: NAD Eye: PERRL ENT: normocephalic atraumatic Neck: supple Heart: RRR Respiratory: CTAB Extremities - other findings: b/l LE ulcers - weeping/bleeding when we removed dressings. Psychiatric: normal affect, normal behavior Hosp A/P - Plan Patient is a pleasant 65 years old -Citizen Of [place] gentleman who has significant past medical history of hepatitis C, diabetes, hypertension, dyslipidemia, chronic back pain, who presented to the ED with complaint of left lower extremity pain. He was recent treated with oral abx. Acute left lower extremity cellulitis/ulcers - failed outpatient therapy --cont with broad spectrum IV abx, Vanc/Zosyn --local wound cares --LE US negative for DVT. Follow BCx --Pt will need close wound care follow up. D/w CM possible SNF d/t transportation issues HTN, essential --BP stable. Resumed home meds Chronic back pain --followed by pain specialist as outpatient --cont home meds.
[2020-10-01] MEDS: HYDROcodone/Acetaminophen 7.5/325 mg Tablet PO PRN ×3 (01:04→21:23)
[2020-10-01 02:53] LABS: Vancomycin, Trough 16.7 ug/mL
[2020-10-01] MEDS: Piperacillin/Tazobactam 3.375 GM in Sodium Chloride 0.9% 100 ML IVPB SCH ×5 (03:38→20:09)
[2020-10-01] MEDS: Vancomycin HCl 1.25 GM in Sodium Chloride 0.9% 250 ML 250 ML IVPB SCH ×2 (04:27→18:27)
[2020-10-01] MEDS: Morphine 2 MG/ML VIAL SLOW IVP PRN ×5 (04:29→23:36)
[2020-10-01] MEDS: Hydrochlorothiazide 25 MG TAB PO SCH (08:23)
[2020-10-01] MEDS: Gabapentin 400 MG CAP PO SCH ×3 (08:23→20:11)
[2020-10-01] MEDS: Furosemide 20 MG TAB PO SCH (08:24)
[2020-10-01] MEDS: Potassium Chloride 20 MEQ TAB PO SCH (08:24)
[2020-10-01] MEDS: Carvedilol 6.25 MG TAB PO SCH (08:24)
[2020-10-01] MEDS: traMADol HCl 50 MG TAB PO SCH ×2 (08:24→20:12)
[2020-10-01] MEDS: Enoxaparin Sodium 40 MG/0.4 ML SYRINGE SC SCH (13:27)
--- NOTE | 2020-10-01 17:52 | PDOC.HOSPP ---
- Subjective Subjective: no fever, still having significant drainage from ulcers. c/o pain. - Objective Vital Signs & Weight: Vital Signs (12 hours) Temp Pulse Resp BP Pulse Ox 10/01/20 15:14 97.9 F 91 18 126/75 99 10/01/20 11:04 97.8 F 98 16 126/79 97 10/01/20 07:14 97.3 F L 100 18 137/78 99 Weight Admit Weight 169 lb 12.095 oz Weight 165 lb 5.547 oz I&O: 09/30/20 10/01/20 10/02/20 06:59 06:59 06:59 Intake Total 1830 1644 Output Total 1425 1200 Balance 405 1644 -1200 Result Diagrams: 09/29/20 05:49 09/30/20 06:01 Additional Labs: Accuchecks 10/01/20 10/01/20 10/01/20 15:17 11:07 06:17 POC Glucose 169 H 145 H 81 09/30/20 09/30/20 20:46 16:34 POC Glucose 100 122 H Radiology Reviewed by me: Yes Hospitalist ROS - Medication Medications: Active Medications Generic Name Dose Route Start Last Admin Trade Name Freq PRN Reason Stop Dose Admin Acetaminophen 650 mg 09/28/20 01:04 09/29/20 16:31 Acetaminophen 325 Mg Tab PO 650 mg Q4H PRN Administration Headache/Fever/Mild Pain (1-3) Hydrocodone Bitart/Acetaminophen 2 tab 09/29/20 12:32 10/01/20 13:26 Hydrocodone/Acetaminophen 7.5/325 Mg Tablet PO 2 tab Q4H PRN Administration Moderate Pain (4-6) Carvedilol 6.25 mg 09/28/20 09:00 10/01/20 08:24 Carvedilol 6.25 Mg Tab PO 6.25 mg DAILY PRECIOUS Administration Enoxaparin Sodium 40 mg 09/28/20 09:00 10/01/20 13:27 Enoxaparin Sodium 40 Mg/0.4 Ml Syringe SC 40 mg 0900 PRECIOUS Administration Furosemide 20 mg 09/28/20 09:00 10/01/20 08:24 Furosemide 20 Mg Tab PO 20 mg DAILY PRECIOUS Administration Gabapentin 800 mg 09/28/20 21:00 10/01/20 15:35 Gabapentin 400 Mg Cap PO 800 mg TID PRECIOUS Administration Hydrochlorothiazide 25 mg 09/28/20 09:00 10/01/20 08:23 Hydrochlorothiazide 25 Mg Tab PO 25 mg DAILY PRECIOUS Administration Piperacillin Sod/Tazobactam 100 mls @ 200 mls/hr 09/28/20 02:00 10/01/20 15:35 Sod 3.375 gm/ Sodium Chloride IVPB 100 mls 0200,0800,1400,2000 PRECIOUS Administration Vancomycin HCl 1.25 gm/ Sodium 250 mls @ 166.667 mls/hr 09/28/20 03:00 10/01/20 04:27 Chloride IVPB 250 mls 0300,1500 PRECIOUS Administration Insulin Human Lispro 0 units 09/28/20 01:15 09/28/20 06:00 Humalog 300 Units/3 Ml Vial SC 2 unit .MILD SLIDING SCALE PRN Administration Mild Correctional Scale Morphine Sulfate 2 mg 09/30/20 11:29 10/01/20 16:10 Morphine 2 Mg/Ml Vial SLOW IVP 2 mg Q3H PRN Administration Pain Pantoprazole Sodium 40 mg 09/29/20 09:00 10/01/20 08:23 Pantoprazole 40 Mg Tab PO 40 mg DAILY PRECIOUS Administration Potassium Chloride 20 meq 09/30/20 08:00 10/01/20 08:24 Potassium Chloride 20 Meq Tab PO 20 meq QAM-WM PRECIOUS Administration Tramadol HCl 50 mg 09/28/20 21:00 10/01/20 08:24 Tramadol Hcl 50 Mg Tab PO 50 mg BID PRECIOUS Administration - Exam General Appearance: NAD Eye: PERRL ENT: normocephalic atraumatic Neck: supple Heart: RRR Respiratory: CTAB Gastrointestinal: soft, non-tender Extremities: no cyanosis, 1+ LE edema Extremities - other findings: multiple ulcers on bilateral legs. drainage/swelling/tender Psychiatric: normal affect Hosp A/P - Plan Patient is a pleasant 65 years old -[place] gentleman who has significant past medical history of hepatitis C, diabetes, hypertension, dyslipidemia, chronic back pain, who presented to the ED with complaint of left lower extremity pain. He was recent treated with oral abx. Acute left lower extremity cellulitis/ulcers - failed outpatient therapy --cont with broad spectrum IV abx, Vanc/Zosyn --local wound cares --LE US negative for DVT. Follow BCx --Pt will need close wound care follow up/hyperbaric chamber. d/w CM --keep legs elevated HTN, essential --BP stable. Resumed home meds Chronic back pain --followed by pain specialist as outpatient --cont home meds. Recurrent Falls --PT eval
[2020-10-02] MEDS: Piperacillin/Tazobactam 3.375 GM in Sodium Chloride 0.9% 100 ML IVPB SCH ×4 (01:15→20:01)
[2020-10-02] MEDS ORDERED: HYDROmorphone 0.5 MG/0.5 ML SYRINGE SLOW IVP SCH (01:15)
[2020-10-02] MEDS: Vancomycin HCl 1.25 GM in Sodium Chloride 0.9% 250 ML 250 ML IVPB SCH ×2 (04:00→16:01)
[2020-10-02] MEDS: Morphine 2 MG/ML VIAL SLOW IVP PRN ×3 (04:34→20:02)
[2020-10-02 07:46] LABS: Anion Gap 9 mmol/L (10-20); BUN (Urea Nitrogen) 8 mg/dL (8.4-25.7); Calc. Creatinine Clearance 96 mL/min (70-130); Calcium 7.9 mg/dL (7.8-10.44); Carbon Dioxide 31 mmol/L (23-31); Chloride 100 mmol/L (98-107); Glucose 133 mg/dL (80-115); Sodium 137 mmol/L (136-145)
[2020-10-02] MEDS: Hydrochlorothiazide 25 MG TAB PO SCH (08:44)
[2020-10-02] MEDS: Furosemide 20 MG TAB PO SCH ×4 (08:44→12:55)
[2020-10-02] MEDS: Gabapentin 400 MG CAP PO SCH ×3 (08:44→20:01)
[2020-10-02] MEDS: Potassium Chloride 20 MEQ TAB PO SCH (08:45)
[2020-10-02] MEDS: traMADol HCl 50 MG TAB PO SCH ×2 (08:45→20:01)
[2020-10-02] MEDS: Carvedilol 6.25 MG TAB PO SCH (08:46)
[2020-10-02] MEDS: Enoxaparin Sodium 40 MG/0.4 ML SYRINGE SC SCH (08:46)
[2020-10-02] MEDS ORDERED: Potassium Chloride 20 MEQ TAB PO SCH (09:15)
[2020-10-02] MEDS ORDERED: Furosemide 20 MG TAB PO SCH (09:30)
[2020-10-02] MEDS: HYDROcodone/Acetaminophen 7.5/325 mg Tablet PO PRN ×3 (11:30→22:35)
[2020-10-02 14:48] LABS: Vancomycin, Trough 18.3 ug/mL
--- NOTE | 2020-10-02 17:19 | PDOC.HOSPP ---
- Subjective Subjective: c/o pain. d/w CM with regarding to d/c planning, looking at [facility]. - Objective Vital Signs & Weight: Vital Signs (12 hours) Temp Pulse Resp BP BP BP Pulse Ox 10/02/20 16:00 97.9 F 86 18 98 10/02/20 12:00 98.6 F 90 19 147/78 H 98 10/02/20 08:46 136/68 10/02/20 08:00 99 10/02/20 07:30 98.0 F 100 16 127/81 100 Weight Admit Weight 169 lb 12.095 oz Weight 165 lb 5.547 oz I&O: 10/01/20 10/02/20 10/03/20 06:59 06:59 06:59 Intake Total 1644 700 Output Total 1200 Balance 1644 -1200 700 Result Diagrams: 09/29/20 05:49 10/02/20 07:14 Additional Labs: Accuchecks 10/02/20 10/02/20 10/02/20 15:13 11:32 04:42 POC Glucose 94 155 H 155 H 10/02/20 10/01/20 00:27 19:55 POC Glucose 126 H 135 H Hospitalist ROS - Medication Medications: Active Medications Generic Name Dose Route Start Last Admin Trade Name Freq PRN Reason Stop Dose Admin Acetaminophen 650 mg 09/28/20 01:04 09/29/20 16:31 Acetaminophen 325 Mg Tab PO 650 mg Q4H PRN Administration Headache/Fever/Mild Pain (1-3) Hydrocodone Bitart/Acetaminophen 2 tab 09/29/20 12:32 10/02/20 11:30 Hydrocodone/Acetaminophen 7.5/325 Mg Tablet PO 2 tab Q4H PRN Administration Moderate Pain (4-6) Carvedilol 6.25 mg 09/28/20 09:00 10/02/20 08:46 Carvedilol 6.25 Mg Tab PO 6.25 mg DAILY PRECIOUS Administration Enoxaparin Sodium 40 mg 09/28/20 09:00 10/02/20 08:46 Enoxaparin Sodium 40 Mg/0.4 Ml Syringe SC 40 mg 0900 PRECIOUS Administration Furosemide 40 mg 10/03/20 09:00 10/02/20 11:29 Furosemide 20 Mg Tab PO 40 mg DAILY PRECIOUS Administration Gabapentin 800 mg 09/28/20 21:00 10/02/20 14:45 Gabapentin 400 Mg Cap PO 800 mg TID PRECIOUS Administration Piperacillin Sod/Tazobactam 100 mls @ 200 mls/hr 09/28/20 02:00 10/02/20 14:55 Sod 3.375 gm/ Sodium Chloride IVPB 100 mls 0200,0800,1400,2000 PRECIOUS Administration Vancomycin HCl 1.25 gm/ Sodium 250 mls @ 166.667 mls/hr 09/28/20 03:00 10/02/20 16:01 Chloride IVPB 250 mls 0300,1500 PRECIOUS Administration Insulin Human Lispro 0 units 09/28/20 01:15 09/28/20 06:00 Humalog 300 Units/3 Ml Vial SC 2 unit .MILD SLIDING SCALE PRN Administration Mild Correctional Scale Morphine Sulfate 2 mg 09/30/20 11:29 10/02/20 14:41 Morphine 2 Mg/Ml Vial SLOW IVP 2 mg Q3H PRN Administration Pain Pantoprazole Sodium 40 mg 09/29/20 09:00 10/02/20 08:46 Pantoprazole 40 Mg Tab PO 40 mg DAILY PRECIOUS Administration Potassium Chloride 20 meq 09/30/20 08:00 10/02/20 08:45 Potassium Chloride 20 Meq Tab PO 20 meq QAM-WM PRECIOUS Administration Tramadol HCl 50 mg 09/28/20 21:00 10/02/20 08:45 Tramadol Hcl 50 Mg Tab PO 50 mg BID PRECIOUS Administration - Exam General Appearance: NAD Eye: PERRL ENT: normocephalic atraumatic Neck: supple Heart: RRR Respiratory: CTAB Gastrointestinal: soft Extremities: no cyanosis, 2+ LE edema Skin - other findings: + drainage, swelling. ulcers noted. no change. warm to touch Musculoskeletal: normal tone Hosp A/P - Plan Patient is a pleasant 65 years old -Polish gentleman who has significant past medical history of hepatitis C, diabetes, hypertension, dyslipidemia, chronic back pain, who presented to the ED with complaint of left lower extremity pain. He was recent treated with oral abx. Acute left lower extremity cellulitis/ulcers - failed outpatient therapy --cont with broad spectrum IV abx, Vanc/Zosyn --local wound cares --LE US negative for DVT. Follow BCx --Pt will need close wound care follow up/hyperbaric chamber. d/w CM --keep legs elevated HTN, essential --BP stable. Resumed home meds Chronic back pain --followed by pain specialist as outpatient --cont home meds. Recurrent Falls --PT penny
[2020-10-03] MEDS: Piperacillin/Tazobactam 3.375 GM in Sodium Chloride 0.9% 100 ML IVPB SCH ×4 (02:06→20:30)
[2020-10-03] MEDS: Vancomycin HCl 1.25 GM in Sodium Chloride 0.9% 250 ML 250 ML IVPB SCH ×2 (03:13→14:54)
[2020-10-03] MEDS: Morphine 2 MG/ML VIAL SLOW IVP PRN ×3 (03:13→21:36)
[2020-10-03] MEDS: Enoxaparin Sodium 40 MG/0.4 ML SYRINGE SC SCH (08:13)
[2020-10-03] MEDS: Gabapentin 400 MG CAP PO SCH ×3 (08:14→20:47)
[2020-10-03] MEDS: Furosemide 20 MG TAB PO SCH (08:14)
[2020-10-03] MEDS: traMADol HCl 50 MG TAB PO SCH ×2 (08:14→20:47)
[2020-10-03] MEDS: Potassium Chloride 20 MEQ TAB PO SCH (08:15)
[2020-10-03] MEDS: Carvedilol 6.25 MG TAB PO SCH (08:15)
[2020-10-03] MEDS: HYDROcodone/Acetaminophen 7.5/325 mg Tablet PO PRN ×2 (08:15→18:40)
[2020-10-03 08:46] LABS: Anion Gap 13 mmol/L (10-20); BUN (Urea Nitrogen) 8 mg/dL (8.4-25.7); Calc. Creatinine Clearance 104 mL/min (70-130); Calcium 8.3 mg/dL (7.8-10.44); Carbon Dioxide 26 mmol/L (23-31); Chloride 106 mmol/L (98-107); Glucose 97 mg/dL (80-115); Potassium 3.5 mmol/L (3.5-5.1); Sodium 141 mmol/L (136-145)
[2020-10-03] MEDS ORDERED: fentaNYL 50 mcg/hour Patch TD SCH (11:00)
--- NOTE | 2020-10-03 11:18 | PQF ---
CLINICAL DOCUMENTATION CLARIFICATION FORM: Dear Dr. Baltazar Date: 10/03/20 Please exercise your independent, professional judgment in responding to the clarification form. Clinical indicators are provided on the bottom of this form for your review. Please check appropriate box(es): [X ] Cellulitis Diabetic Skin Complication [ ] Cellulitis not related to Diabetes [ ] Other diagnosis [ ] Unable to determine In addition, please specify: Present on Admission (POA): [X ] Yes [ ] No [ ] Unable to determine For continuity of documentation, please document condition throughout progress notes and discharge summary. Thank You. To be completed by CDI/Coding staff for physician review: CLINICAL INDICATORS - SIGNS / SYMPTOMS / LABS / RESULTS AND LOCATION IN EMR ED: P 109-125 RR 16 T 98.5 oral BP 167/97; 163/105; 195/111; 182/111; 155/108 H&P (Rodríguez) PMH - HTN; DM; Pt states he has not taken any of his medication for about a month because he ran out and has not PCP PN (Delaney) acute left lower extremity cellulitis/ulcers - failed outpatient therapy. RISK FACTORS / RESULTS AND LOCATION IN EMR Seen in ED Approximately 2 weeks ago given abx and sent home - small wound on LLE grown larger and more painful TREATMENTS / RESULTS AND LOCATION IN EMR ABGs (if Serum Bicarb reduced or hypoxia) Glucose monitoring Diabetic Diet Continue w/ broad spectrum IV abs, Vanc/Zosyn Local wound care MAR: 09/28 - 10/02 Zosyn IV and Vancomycin IV CDS Signature: Marita Tarango RN Phone #: [phone] Date: 10/03/20 LELE
[2020-10-03] MEDS: HumaLOG 300 UNITS/3 ML VIAL SC PRN (12:11)
[2020-10-03] MEDS: Lidocaine 5% Patch TD SCH (12:12)
--- NOTE | 2020-10-03 16:58 | PDOC.HOSPP ---
- Subjective Subjective: Pt always keep his legs dangling on side the bed, unable to keep it elevated d/t pain. Myself and staff and have been encouraged him to keep his leg propped up. Will try to adjust his pain regimen to keep him more tolerable. d/w CM - pending insurance approval - Objective Vital Signs & Weight: Vital Signs (12 hours) Temp Pulse Resp BP BP Pulse Ox 10/03/20 08:15 136/68 10/03/20 08:00 99 10/03/20 07:19 98 F 100 18 149/81 H 99 Weight Admit Weight 169 lb 12.095 oz Weight 165 lb 5.547 oz I&O: 10/02/20 10/03/20 10/04/20 06:59 06:59 06:59 Intake Total 700 960 Output Total 1200 1100 Balance -1200 700 -140 Result Diagrams: 09/29/20 05:49 10/03/20 07:55 Additional Labs: Accuchecks 10/02/20 20:29 POC Glucose 130 H Hospitalist ROS - Medication Medications: Active Medications Generic Name Dose Route Start Last Admin Trade Name Freq PRN Reason Stop Dose Admin Acetaminophen 650 mg 09/28/20 01:04 09/29/20 16:31 Acetaminophen 325 Mg Tab PO 650 mg Q4H PRN Administration Headache/Fever/Mild Pain (1-3) Hydrocodone Bitart/Acetaminophen 2 tab 09/29/20 12:32 10/03/20 08:15 Hydrocodone/Acetaminophen 7.5/325 Mg Tablet PO 2 tab Q4H PRN Administration Moderate Pain (4-6) Carvedilol 6.25 mg 09/28/20 09:00 10/03/20 08:15 Carvedilol 6.25 Mg Tab PO 6.25 mg DAILY PRECIOUS Administration Enoxaparin Sodium 40 mg 09/28/20 09:00 10/03/20 08:13 Enoxaparin Sodium 40 Mg/0.4 Ml Syringe SC 40 mg 09 PRECIOUS Administration Fentanyl 50 mcg 10/03/20 11:00 10/03/20 12:12 Fentanyl 50 Mcg/Hour Patch TD 50 mcg Q3D PRECIOUS Administration Furosemide 40 mg 10/03/20 09:00 10/03/20 08:14 Furosemide 20 Mg Tab PO 40 mg DAILY PRECIOUS Administration Gabapentin 800 mg 09/28/20 21:00 10/03/20 14:55 Gabapentin 400 Mg Cap PO 800 mg TID PRECIOUS Administration Piperacillin Sod/Tazobactam 100 mls @ 200 mls/hr 09/28/20 02:00 10/03/20 13:47 Sod 3.375 gm/ Sodium Chloride IVPB 100 mls 0200,0800,1400,2000 PRECIOUS Administration Vancomycin HCl 1.25 gm/ Sodium 250 mls @ 166.667 mls/hr 09/28/20 03:00 10/03/20 14:54 Chloride IVPB 250 mls 0300,1500 PRECIOUS Administration Insulin Human Lispro 0 units 09/28/20 01:15 10/03/20 12:11 Humalog 300 Units/3 Ml Vial SC 2 unit .MILD SLIDING SCALE PRN Administration Mild Correctional Scale Lidocaine 2 patch 10/03/20 11:00 10/03/20 12:12 Lidocaine 5% Patch TD 2 patch 1100 PRECIOUS Administration Morphine Sulfate 2 mg 09/30/20 11:29 10/03/20 13:56 Morphine 2 Mg/Ml Vial SLOW IVP 2 mg Q3H PRN Administration Pain Pantoprazole Sodium 40 mg 09/29/20 09:00 10/03/20 08:13 Pantoprazole 40 Mg Tab PO 40 mg DAILY PRECIOUS Administration Potassium Chloride 20 meq 09/30/20 08:00 10/03/20 08:15 Potassium Chloride 20 Meq Tab PO 20 meq QAM-WM PRECIOUS Administration Tramadol HCl 50 mg 09/28/20 21:00 10/03/20 08:14 Tramadol Hcl 50 Mg Tab PO 50 mg BID PRECIOUS Administration - Exam General Appearance: NAD Eye: PERRL ENT: normocephalic atraumatic Neck: supple Heart: RRR Respiratory: CTAB Gastrointestinal: soft, non-tender Extremities: no cyanosis Skin: normal turgor Hosp A/P - Plan Patient is a pleasant 65 years old -[place] gentleman who has significant past medical history of hepatitis C, diabetes, hypertension, dyslip idemia, chronic back pain, who presented to the ED with complaint of left lower extremity pain. He was recent treated with oral abx. Acute left lower extremity cellulitis/ulcers - failed outpatient therapy --cont with broad spectrum IV abx, Vanc/Zosyn --local wound cares --LE US negative for DVT. Follow BCx --Pt will need close wound care follow up/hyperbaric chamber. --keep legs elevated - but not compliant --D/w CM - accepted to [facility], pending insurance approval HTN, essential --BP stable. Resumed home meds Chronic back pain --followed by pain specialist as outpatient --cont home meds. Added patch Recurrent Falls --PT eval
[2020-10-03] MEDS ORDERED: Lidocaine Patch Removal 1 EACH TOP SCH (23:00)
[2020-10-04] MEDS: Piperacillin/Tazobactam 3.375 GM in Sodium Chloride 0.9% 100 ML IVPB SCH ×2 (01:51→08:53)
[2020-10-04] MEDS: Morphine 2 MG/ML VIAL SLOW IVP PRN ×2 (01:52→08:52)
[2020-10-04] MEDS: HYDROcodone/Acetaminophen 7.5/325 mg Tablet PO PRN (03:08)
[2020-10-04] MEDS: Vancomycin HCl 1.25 GM in Sodium Chloride 0.9% 250 ML 250 ML IVPB SCH (03:09)
[2020-10-04] MEDS: HumaLOG 300 UNITS/3 ML VIAL SC PRN (06:15)
[2020-10-04 06:28] LABS: Hemoglobin A1c 6.6 % (4.0-6.0)
[2020-10-04 06:40] LABS: Anion Gap 11 mmol/L (10-20); BUN (Urea Nitrogen) 7 mg/dL (8.4-25.7); Calc. Creatinine Clearance 106 mL/min (70-130); Calcium 8.1 mg/dL (7.8-10.44); Carbon Dioxide 25 mmol/L (23-31); Chloride 106 mmol/L (98-107); Glucose 184 mg/dL (80-115); Potassium 3.5 mmol/L (3.5-5.1); Sodium 138 mmol/L (136-145)
[2020-10-04 07:38] LABS: #Basophils 0.1 thou/uL (0.0-0.2); #Eosinphils 0.3 thou/uL (0.0-0.7); #Lymphocytes 1.8 thou/uL (1.20-3.40); #Monocytes 0.7 thou/uL (0.11-0.59); #Neutrophils 1.8 thou/uL (1.40-6.50); %Basophils 1.4 % (0.0-1.0); %Eosinophils 5.9 % (0.0-10.0); %Lymphocytes 38.9 % (21.0-51.0); %Monocytes 14.5 % (0.0-10.0); %Neutrophils 39.3 % (42.0-75.0); Hemoglobin 12.3 g/dL (14.0-18.0); MDiff Complete? YES; Mean Corpuscular HGB CONC 32.9 g/dL (32.0-36.0); Mean Corpuscular Hemoglobin 32.1 pg (27.0-31.0); Mean Corpuscular Volume 97.6 fL (78.0-98.0); Mean Platelet Volume 8.3 fL (7.4-10.4); Platelet Count 114 thou/uL (130-400); Platelet Morphology Comment Appears Decreased; Polychromasia SLIGHT = 2-3 cells (100X) (0-2/hpf); RBC Distribution Width 13.1 % (11.5-14.5); Red Blood Cell (RBC) Count 3.84 mill/uL (4.70-6.10); White Blood Cell (WBC) Count 4.7 thou/uL (4.8-10.8)
[2020-10-04 08:27] VITALS: TEMP 97.2
[2020-10-04] MEDS: Gabapentin 400 MG CAP PO SCH (08:51)
[2020-10-04] MEDS: Carvedilol 6.25 MG TAB PO SCH (08:51)
[2020-10-04] MEDS: Potassium Chloride 20 MEQ TAB PO SCH (08:52)
[2020-10-04] MEDS: traMADol HCl 50 MG TAB PO SCH (08:52)
[2020-10-04] MEDS: Enoxaparin Sodium 40 MG/0.4 ML SYRINGE SC SCH (08:53)
[2020-10-04] MEDS: Furosemide 20 MG TAB PO SCH (08:53)
[2020-10-04 08:54] VITALS: BP 136/68
--- NOTE | 2020-10-04 08:56 | PDOC.DS.DS ---
Provider - Provider Date of Admission: 09/29/20 12:27 Date of Discharge: 10/04/20 Admitting Provider: Tico Arreguin Consultations: Other (wound cares) Primary Care Physician: Manisha Hsu MD Course - Hospital Course Hospital Course: The patient is a pleasant 65 years old -[place] gentleman who has significant past medical histories of chronic hepatitis C, diabetes, hypertension, dyslipidemia, chronic back pain with multiple back surgery, who presented to ED with complaint of right lateral lower extremity pain, and infection. Patient was initially treated with oral antibiotic by PCP. Unfortunately no significant improvement, patient reported that his ulcer has worsened over the past few day along with significant pain and drainage. For that reason he came to the ED for further evaluation. Initial work-up in the ED including CT head was unremarkable. CT of the lumbar spine show chronic changes otherwise no acute process. Venous Doppler was negative. Arterial ultrasound showed good blood flow, however obstructed with bandage from his wound on the lower extremity pulses. At any rate, patient was admitted to hospitalist service for bilateral venous stasis ulcer and surrounding cellulitis. He was started on empiric IV antibiotic with vancomycin and Zosyn. Wound care was consulted. Patient was placed in the ED Unna boot. It is quite erythematous. However, patient had a difficult time of keeping his leg elevated due to pain. He is compliant was much improved, after we got his pain better control. Blood cultures no growth. His antibiotic was switched over to oral doxycycline. He will be transition to [facility] facility for further wound care. Patient was encouraged to keep his leg elevated. Tight blood glucose control to promote wound healing. He will need to follow-up with his PCP in 1 to 2 weeks upon discharge. The plan of care discussed with the patient as well as his daughter on the phone. At this time, patient is stable to transition to [facility] facility. Pertinent Studies: Brain CT: No acute intracranial abnormality. Lumbar spine CT: No evidence of fracture. Postoperative changes lumbar spine. Home with complication is present with perihardware lucency involving bilateral L4 and S1 pedicular screw. Multilevel degenerative changes. Lower extremity Doppler: Normal exam Lower extremities ultrasound good arterial flow documented to the level of each popliteal artery. Lower legs obscured by bandage. Procedures: None Resuscitation Status: 09/28/20 01:04 Resuscitation Status Routine Resuscitation Status: FULL: Full Resuscitation - Labs Lab Results: 10/04/20 06:03 10/04/20 06:03 Abnormal Lab Results - Last 48 hrs 10/03/20 07:55: BUN 8 L 10/04/20 06:03: BUN 7 L 10/04/20 06:03: Hemoglobin A1c 6.6 H 10/04/20 06:03: WBC 4.7 L, RBC 3.84 L, Hgb 12.3 L, Hct 37.5 L, MCH 32.1 H, Plt Count 114 L, Neutrophils % 39.3 L, Monocytes % 14.5 H, Basophils % 1.4 H, Monocytes # 0.7 H, Plt Morphology Comment Appears Decreased L Microbiology - Entire Visit 09/27/20 20:30 Venous blood - Left Hand Blood Culture - Final NO GROWTH IN 5 DAYS 09/27/20 20:30 Venous blood - Left Arm Blood Culture - Final NO GROWTH IN 5 DAYS - Physical Exam Vitals: Vital Signs (12 hours) Temp Pulse Resp BP BP Pulse Ox 10/04/20 08:51 136/68 10/04/20 08:00 97.2 F L 116 H 16 167/95 H 100 10/04/20 04:21 97.3 F L Weight Admit Weight 169 lb 12.095 oz Weight 165 lb 5.547 oz Physical Exam: The patient was seen and examined on the day of discharge. PHYSICAL EXAM: General Appearance: Alert, oriented, resting comfortably, no apparent distress, well developed/nourished. HEENT: Normocephalic/atraumatic, moist mucous membrane, normal ENT inspection, normal tones. PERRLA, no scleral icterus, normal conjunctiva Neck: Supple, normal inspection, no JVD Respiratory: Lungs are clear bilaterally, normal breath sounds, no accessory muscle use Cardiovascular: Regular rate, regular rhythm, no murmur, no rubs Abdomen: Soft, nontender, nondistended, normal bowel sounds, no organomegaly, no guarding no rebound Back: Normal inspection, no CVA tenderness Extremities: Bilateral venous stasis ulcer, 2+ edema bilaterally, weeping tender to touch. Psych/Mental Status: Normal affect, speech, non-pressured, AAO x 3 Neurologic: CN II-XII are intact. Skin: Warm/Dry, Normal Color, no rashes Problem - Problem (1) Venous stasis ulcers of both lower extremities Code(s): I83.019 - VARICOSE VEINS OF RIGHT LOWER EXTREMITY W ULCER OF UNSP SITE; I83.029 - VARICOSE VEINS OF LEFT LOWER EXTREMITY W ULCER OF UNSP SITE; L97.919 - NON-PRS CHRONIC ULC UNSP PRT OF R LOW LEG W UNSP SEVERITY; L97.929 - NON-PRS CHRONIC ULC UNSP PRT OF L LOW LEG W UNSP SEVERITY Status: Acute (2) Cellulitis Code(s): L03.90 - CELLULITIS, UNSPECIFIED Status: Acute (3) Cervical myelopathy Code(s): G95.9 - DISEASE OF SPINAL CORD, UNSPECIFIED Status: Acute (4) Diabetes Code(s): E11.9 - TYPE 2 DIABETES MELLITUS WITHOUT COMPLICATIONS Status: Acute (5) HTN (hypertension) Code(s): I10 - ESSENTIAL (PRIMARY) HYPERTENSION Status: Acute (6) Hepatitis C Code(s): B19.20 - UNSPECIFIED VIRAL HEPATITIS C WITHOUT HEPATIC COMA Status: Acute (7) S/P cervical spinal fusion Status: Acute - Time spent with Patient (mins): 40 Plan - Discharge Medications Prescriptions: metFORMIN [Glucophage] 500 mg PO BID- #60 tab Potassium Chloride [K-Dur] 20 meq PO DAILY #30 tab Furosemide [Lasix] 40 mg PO DAILY #30 tab Lidocaine Patch Removal 1 each TOP 2300 #30 each Doxycycline [Vibramycin] 100 mg PO BID #20 cap tiZANidine HCl [Zanaflex] 2 mg PO BID #60 capsule Home Medications: Medication Instructions Recorded Confirmed Type Gabapentin 800 mg PO TID 05/28/16 09/28/20 History traMADol HCl [Tramadol HCl] 50 mg PO BID 05/28/16 09/28/20 History Carvedilol 6.25 mg PO DAILY 11/09/18 09/28/20 History Gabapentin 800 mg PO TID 09/28/20 09/28/20 History HYDROcodone/Acetaminophen [[place] 1 each PO Q6HR PRN 09/28/20 09/28/20 History 10-325 Tablet] Pantoprazole [Protonix] 40 mg PO DAILY 09/28/20 09/28/20 History Doxycycline [Vibramycin] 100 mg PO BID #20 cap 10/04/20 Rx Furosemide [Lasix] 40 mg PO DAILY #30 tab 10/04/20 Rx Lidocaine Patch Removal 1 each TOP 2300 #30 each 10/04/20 Rx Potassium Chloride [K-Dur] 20 meq PO DAILY #30 tab 10/04/20 Rx metFORMIN [Glucophage] 500 mg PO BID-WM #60 tab 10/04/20 Rx tiZANidine HCl [Zanaflex] 2 mg PO BID #60 capsule 10/04/20 Rx Allergies: No Known Allergies Allergy (Verified 09/28/20 04:51) - Discharge Instructions Discharge Instructions:: Please complete the antibiotic as prescribed. Continue wound care. Avoid sugary products. Monitor your Blood glucose. we have started you on low dose Metformin for your Diabetes. Follow up with PCP in 2-4 weeks Keep your legs elevated at ALL TIMES. Activity:: Activity as Tolerated Nourishment:: Diabetic Diet Therapies:: Physical Therapy Equipment/Supplies:: Wound Care (clean, apply dmitri morgan, reinforce with Kerlex and keep leg elevated) - Follow up Plan Referrals: Manisha Hsu MD [Primary Care Provider] - (FOLLOW UP IN 2-4 WEEKS) Disposition: RETIREMENT FACILITY Quality - Care Measures CORE MEASURES:: N/A
[2020-10-04] MEDS: Lidocaine 5% Patch TD SCH (11:26)
== END 2020-10-04 13:00 | DRG 638 ==
LOC: ERS 19:36 → T4-B 23:23 → OBSVTOIN 09-29 12:27
PROVIDERS: ADMIT Internal Medicine; ATTEND Family Medicine
DX: E11.628 Type 2 diabetes mellitus with other skin complications (principal); L97.819 Non-pressure chronic ulcer of other part of right lower leg with unspecified severity; L97.829 Non-pressure chronic ulcer of other part of left lower leg with unspecified severity; G95.9 Disease of spinal cord, unspecified; L03.116 Cellulitis of left lower limb; Z20.822 Contact with and (suspected) exposure to COVID-19; I83.028 Varicose veins of left lower extremity with ulcer other part of lower leg; I83.018 Varicose veins of right lower extremity with ulcer other part of lower leg; I10 Essential (primary) hypertension; B19.20 Unspecified viral hepatitis C without hepatic coma; E78.5 Hyperlipidemia, unspecified; G89.29 Other chronic pain; M54.9 Dorsalgia, unspecified; E78.00 Pure hypercholesterolemia, unspecified; K21.9 Gastro-esophageal reflux disease without esophagitis; R29.6 Repeated falls; Z98.1 Arthrodesis status; Z90.49 Acquired absence of other specified parts of digestive tract; Z87.891 Personal history of nicotine dependence; Z79.899 Other long term (current) drug therapy; Z79.84 Long term (current) use of oral hypoglycemic drugs
CPT/HCPCS: 36415; 36416; 70450; 72131; 80048; 80053; 80202; 81003; 83036; 83605; 83880; 84484; 85007; 85025; 85027; 86140; 87040; 87635; 93005; 93923; 93970; 96365; 96366; 96367; 96372; 96375; 96376; G0378; J0696; J1170; J1650; J1885; J1940; J2270; J2543; J3370; J3490; J7050; U0003

== ENCOUNTER 2020-10-24 18:07 | Inpatient (IN) | payer MEDICARE ==
[2020-10-24 18:54] LABS: #Basophils 0.1 thou/uL (0.0-0.2); #Eosinphils 0.3 thou/uL (0.0-0.7); #Lymphocytes 2.3 thou/uL (1.20-3.40); #Monocytes 0.4 thou/uL (0.11-0.59); #Neutrophils 1.8 thou/uL (1.40-6.50); %Basophils 1.5 % (0.0-1.0); %Eosinophils 5.5 % (0.0-10.0); %Lymphocytes 46.8 % (21.0-51.0); %Neutrophils 38.2 % (42.0-75.0); Hemoglobin 12.8 g/dL (14.0-18.0); Mean Corpuscular HGB CONC 32.6 g/dL (32.0-36.0); Mean Corpuscular Hemoglobin 31.6 pg (27.0-31.0); Mean Platelet Volume 8.7 fL (7.4-10.4); Platelet Count 115 thou/uL (130-400); Red Blood Cell (RBC) Count 4.04 mill/uL (4.70-6.10); White Blood Cell (WBC) Count 4.8 thou/uL (4.8-10.8)
[2020-10-24 19:17] LABS: ALT (SGPT) 46 U/L (8-55); AST (SGOT) 79 U/L (5-34); Albumin 2.9 g/dL (3.4-4.8); Alkaline Phosphatase 87 U/L (40-110); Anion Gap 15 mmol/L (10-20); BUN (Urea Nitrogen) 6 mg/dL (8.4-25.7); Bilirubin, Total 2.3 mg/dL (0.2-1.2); Calc. Creatinine Clearance 0 mL/min (70-130); Calcium 8.9 mg/dL (7.8-10.44); Carbon Dioxide 28 mmol/L (23-31); Chloride 103 mmol/L (98-107); Globulin 5.5 g/dL (2.4-3.5); Glucose 150 mg/dL (80-115); Potassium 3.4 mmol/L (3.5-5.1); Protein, Total 8.4 g/dL (5.8-8.1); Sodium 143 mmol/L (136-145)
[2020-10-24] MEDS ORDERED: Cefepime 2 GM VIAL ONE (19:57)
[2020-10-24] MEDS ORDERED: Vancomycin 1.5 GRAM/300 ML BAG 1.5 GM in Premix Bag 1 BAG IVPB SCH (21:00)
--- NOTE | 2020-10-24 21:01 | RAD ---
LEFT TIBIA AND FIBULA: 10/24/20 INDICATIONS: Pain. Skin ulcers. Mild soft issue swelling at the ankle. Mild degenerative changes at the knee and at the ankle. No acu te osseous abnormality. IMPRESSION: No acute finding. POS: AGW
--- NOTE | 2020-10-24 21:04 | RAD ---
RADIOGRAPH: RIGHT LEG TIBIA AND FIBULA TWO VIEWS 10/24/20 HISTORY: 65-year-old male with ulcers at right leg. FINDINGS: There is diffuse soft tissue edema. No subcutaneous emphysema or soft tissue calcification. Mild atherosclerotic calcification of anterior and posterior tibial arteries. No osteolytic, osteoblastic, or permeative lesion involving the tibia or fibula. No fracture or periostitis. Focal superficial soft tissue swelling posteromedial to the mid-distal tibial shaft. IMPRESSION: 1. Focal superficial soft tissue swelling or mass in the distal portion of the right leg. 2. Diffuse soft tissue edema. 3. No osseous abnormality. POS: JIN
[2020-10-24] MEDS ORDERED: Promethazine HCl 12.5 MG in Sodium Chloride 0.9% 50 ML IVPB PRN (21:25)
[2020-10-24] MEDS ORDERED: Guaifenesin DM 100-10/5 ML UDCUP PO PRN (21:25)
[2020-10-24] MEDS ORDERED: Labetalol HCl 100 MG/20 ML VIAL SLOW IVP PRN (21:25)
[2020-10-24] MEDS ORDERED: cloNIDine 0.1 MG TAB PO PRN (21:25)
[2020-10-24] MEDS ORDERED: Ondansetron PF 4 MG/2 ML Vial IVP PRN (21:25)
[2020-10-24] MEDS ORDERED: hydrALAZINE 20 MG/ML VIAL SLOW IVP PRN (21:25)
[2020-10-24] MEDS ORDERED: Acetaminophen 325 MG TAB PO PRN (21:25)
[2020-10-24] MEDS ORDERED: Electrolyte Replacement Protocol 1 EACH FS SCH (21:30)
--- NOTE | 2020-10-24 21:35 | PDOC.HHP ---
Hospitalist CHAD Leg wounds History of Present Illness: Patient is a 65 year old male with PMH HCV, HTN, DM, HLD, chronic back pain, lo wer extremity wounds who presents to ED sent by PCP for ulcer issues. Patient was being seen by wound care and wasnt getting better, had discussed HH with PCP but had not been set up, his wounds became worse and patient was recently hospitalized and recieved antibiotics, was discharged to [facility] which patient did not like and he left there a week ago, bilateral leg ulcers have worsened since, blisters have ruptures, wounds are purulent and malodorous in ED, no fevers noted at home or in ED. Patient recieved vancomycin and cefepime in ED, admitted for further workup and care. Allergies/Adverse Reactions: Allergy/AdvReac Type Severity Reaction Status Date / Time No Known Allergies Allergy Verified 09/28/20 04:51 Home Medications: Medication Instructions Recorded Confirmed Type Gabapentin 800 mg PO TID 05/28/16 09/28/20 History traMADol HCl [Tramadol HCl] 50 mg PO BID 05/28/16 09/28/20 History Carvedilol 6.25 mg PO DAILY 11/09/18 09/28/20 History Gabapentin 800 mg PO TID 09/28/20 09/28/20 History HYDROcodone/Acetaminophen [[place] 1 each PO Q6HR PRN 09/28/20 09/28/20 History 10-325 Tablet] Pantoprazole [Protonix] 40 mg PO DAILY 09/28/20 09/28/20 History Doxycycline [Vibramycin] 100 mg PO BID #20 cap 10/04/20 Rx Furosemide [Lasix] 40 mg PO DAILY #30 tab 10/04/20 Rx Lidocaine Patch Removal 1 each TOP 2300 #30 each 10/04/20 Rx Potassium Chloride [K-Dur] 20 meq PO DAILY #30 tab 10/04/20 Rx metFORMIN [Glucophage] 500 mg PO BID-WM #60 tab 10/04/20 Rx tiZANidine HCl [Zanaflex] 2 mg PO BID #60 capsule 10/04/20 Rx Past History: PMHx: HCV, HTN, DM, HLD, chronic back pain, lower extremity wounds PSHx: Cholecystectomy FHx: HTN Social: former smoker, denies drug/alcohol use Hospitalist CHAD ROS Constitutional: denies: fever, chills, sweats, weakness, malaise, other Eyes: denies: pain, vision change, conjunctivae inflammation, eyelid inflammation, redness, other ENT: denies: ear pain, ear discharge, nose pain, nose discharge, nose congestion, mouth pain, mouth swelling, throat pain, throat swelling, other Respiratory: denies: cough, dry, shortness of breath, hemoptysis, SOB with excertion, pleuritic pain, sputum, wheezing, other Cardiovascular: denies: chest pain, palpitations, orthopnea, paroxysmal noc. dyspnea, edema, light headedness, other Gastrointestinal: denies: nausea, vomiting, abdominal pain, diarrhea, constipation, melena, hematochezia, other Genitourinary: denies: dysuria, frequency, incontinence, hematuria, retention, other Musculoskeletal: reports: back pain Skin: reports: rash, lesions. denies: jesús, bruising, other Neurological: denies: weakness, numbness, incoordination, change in speech, confusion, seizures, other All other systems reviewed; all pertinent +/- noted in HPI/Subj Hospitalist Exam General Appearance: NAD, awake alert Eye: PERRL, anicteric sclera ENT: normocephalic atraumatic, no oropharyngeal lesions, moist mucosa Neck: supple, symmetric, no JVD, no thyromegaly, no lymphadenopathy, no carotid bruit Heart: RRR, no murmur, no gallops, no rubs, normal peripheral pulses Respiratory: CTAB, no wheezes, no rales, no ronchi, normal chest expansion, no tachypnea, normal percussion Gastrointestinal: soft, non-tender, non-distended, normal bowel sounds, no palpable masses, no hepatomegaly, no splenomegaly, no bruit Extremities: no cyanosis, no clubbing, no edema Extremities - other findings: lower extremity wound with purulence/exudate, no visible bone Skin: normal turgor, no lesions, no rashes Neurological: cranial nerve grossly intact, normal sensation to touch, no weakness, no focal deficits, no new deficit Musculoskeletal: normal tone, normal strength, no muscle wasting Psychiatric: normal affect, normal behavior, A&O x 3 Hospitalist Results Result Diagrams: 10/24/20 18:41 10/24/20 18:41 Lab results: Laboratory Last Values WBC 4.8 thou/uL (4.8-10.8) 10/24/20 18:41 RBC 4.04 mill/uL (4.70-6.10) L 10/24/20 18:41 Hgb 12.8 g/dL (14.0-18.0) L 10/24/20 18:41 Hct 39.2 % (42.0-52.0) L 10/24/20 18:41 MCV 97.0 fL (78.0-98.0) 10/24/20 18:41 MCH 31.6 pg (27.0-31.0) H 10/24/20 18:41 MCHC 32.6 g/dL (32.0-36.0) 10/24/20 18:41 RDW 13.0 % (11.5-14.5) 10/24/20 18:41 Plt Count 115 thou/uL (130-400) L 10/24/20 18:41 MPV 8.7 fL (7.4-10.4) 10/24/20 18:41 Neutrophils % 38.2 % (42.0-75.0) L 10/24/20 18:41 Neutrophils % (Manual) Not Reportable 10/24/20 18:41 Lymphocytes % 46.8 % (21.0-51.0) 10/24/20 18:41 Monocytes % 8.0 % (0.0-10.0) 10/24/20 18:41 Eosinophils % 5.5 % (0.0-10.0) 10/24/20 18:41 Basophils % 1.5 % (0.0-1.0) H 10/24/20 18:41 Neutrophils # 1.8 thou/uL (1.40-6.50) 10/24/20 18:41 Lymphocytes # 2.3 thou/uL (1.20-3.40) 10/24/20 18:41 Monocytes # 0.4 thou/uL (0.11-0.59) 10/24/20 18:41 Eosinophils # 0.3 thou/uL (0.0-0.7) 10/24/20 18:41 Basophils # 0.1 thou/uL (0.0-0.2) 10/24/20 18:41 Sodium 143 mmol/L (136-145) 10/24/20 18:41 Potassium 3.4 mmol/L (3.5-5.1) L 10/24/20 18:41 Chloride 103 mmol/L (98-107) 10/24/20 18:41 Carbon Dioxide 28 mmol/L (23-31) 10/24/20 18:41 Anion Gap 15 mmol/L (10-20) 10/24/20 18:41 BUN 6 mg/dL (8.4-25.7) L 10/24/20 18:41 Creatinine 0.80 mg/dL (0.7-1.3) 10/24/20 18:41 Estimated GFR (MDRD) Greater than 90 10/24/20 18:41 Glucose 150 mg/dL (80-115) H 10/24/20 18:41 Lactic Acid 2.3 mmol/L (0.5-2.2) H 10/24/20 18:41 Calcium 8.9 mg/dL (7.8-10.44) 10/24/20 18:41 Total Bilirubin 2.3 mg/dL (0.2-1.2) H 10/24/20 18:41 AST 79 U/L (5-34) H 10/24/20 18:41 ALT 46 U/L (8-55) 10/24/20 18:41 Alkaline Phosphatase 87 U/L (40-110) 10/24/20 18:41 Serum Total Protein 8.4 g/dL (5.8-8.1) H 10/24/20 18:41 Albumin 2.9 g/dL (3.4-4.8) L 10/24/20 18:41 Globulin 5.5 g/dL (2.4-3.5) H 10/24/20 18:41 Albumin/Globulin Ratio 0.5 g/dL (1.2-2.2) L 10/24/20 18:41 Additional comment: labs, ed documents, imaging reports reviewed. Hospitalist H&P A/P Plan: Patient is a 65 year old male with PMH HCV, HTN, DM, HLD, chronic back pain, lower extremity wounds who presents to ED sent by PCP for ulcer issues. # bilateral lower extremity ulcers and cellulitis appears perhaps chronic venous stasis with ruptures bullae and now infections, XRs w/ no bony abnormalities, patient wishes to look into home health for wound care, and also with reduced mobility in current situation would benefit from HH PT/ot too - admit to floor - vancomycin/unasyn - wound care consult - follow cultures - case management/PT/OT consults # history of HCV - outpatient management recommended # chronic lower back pain - sees pain management, PRN medications in chart # HLD - resume home medications # HTN - resume home medications # hypokalemia - replacement parameters # DM - SSI AC/HS DVT/GI ppx
[2020-10-24 21:51] LABS: Bilirubin Negative (Negative); Blood, Urine Negative (Negative); Clarity Clear (Clear); Glucose, Urine (Dipstick) Normal (Negative); Ketone, Urine Negative (Negative); Leukocyte Negative Leu/uL (Negative); Nitrite Negative (Negative); Protein, Urine (Dipstick) Negative (Neg-Trace); Specific Gravity, Urine 1.007 (1.002-1.036); Urobilinogen 6 mg/dL (Less than 2); pH, Urine 6.5 (5.0-9.0)
[2020-10-24 22:12] LABS: Lactic Acid 2.2 mmol/L (0.5-2.2)
[2020-10-24] MEDS ORDERED: Ibuprofen 200 MG TAB ONE (22:36)
[2020-10-24] MEDS ORDERED: Electrolyte Replacement Protocol FS PRN (23:15)
[2020-10-24] MEDS: HYDROcodone/Acetaminophen 10/325 mg Tablet PO PRN (23:43)
[2020-10-24] MEDS ORDERED: HumaLOG 300 UNITS/3 ML VIAL SC PRN (23:57)
[2020-10-24] MEDS ORDERED: Dextrose 5% in Water 1,000 ML IV PRN (23:57)
[2020-10-24] MEDS ORDERED: Dextrose 50% Abboject 50 ML SYRINGE SLOW IVP PRN (23:57)
[2020-10-25] MEDS: Ampicillin/Sulbactam 3 GM in Sodium Chloride 0.9% 100 ML IVPB SCH ×5 (00:16→23:51)
[2020-10-25] MEDS: Lidocaine 5% Patch TD SCH ×2 (00:16→23:51)
[2020-10-25] MEDS: Morphine 2 MG/ML VIAL SLOW IVP PRN ×5 (01:46→21:32)
[2020-10-25 02:08] VITALS: BMI 25.6
[2020-10-25 06:17] LABS: SARS-CoV-2 PCR by NAA Not Detected (NotDetected)
[2020-10-25] MEDS: Gabapentin 400 MG CAP PO SCH ×3 (08:35→20:05)
[2020-10-25] MEDS: tiZANidine HCl 4 MG TAB PO SCH ×2 (08:35→20:07)
[2020-10-25] MEDS: Carvedilol 6.25 MG TAB PO SCH (08:35)
[2020-10-25] MEDS: traMADol HCl 50 MG TAB PO SCH ×2 (08:35→20:06)
[2020-10-25] MEDS: Famotidine 20 MG TAB PO SCH ×2 (08:36→20:04)
[2020-10-25] MEDS: Heparin 5,000 UNITS/ML VIAL SC SCH ×2 (08:36→20:05)
[2020-10-25] MEDS: Furosemide 40 MG TAB PO SCH (08:36)
[2020-10-25] MEDS: Polyethylene Glycol 3350 17 GM Packet PO SCH (08:36)
[2020-10-25] MEDS: Vancomycin 1.5 GRAM/300 ML BAG 1.5 GM in Premix Bag 1 BAG IVPB SCH ×2 (09:46→20:03)
[2020-10-25] MEDS: Lidocaine Patch Removal TOP SCH (11:54)
[2020-10-25] MEDS: Sodium Chloride 0.9% 1,000 ML IV SCH (13:32)
[2020-10-25] MEDS: HYDROcodone/Acetaminophen 10/325 mg Tablet PO PRN (14:54)
--- NOTE | 2020-10-25 16:24 | PDOC.HOSPP ---
- Subjective Encounter Date: 10/25/20 Encounter Time: 08:00 Subjective: Pt seen for followup re: cellulitis. Denies fevers or chills. - Objective Vital Signs & Weight: Vital Signs (12 hours) Temp Pulse Resp BP BP Pulse Ox 10/25/20 15:21 79 14 97/66 97 10/25/20 13:20 76 106/62 10/25/20 11:38 76 87/55 L 10/25/20 11:08 97.9 F 76 14 96 10/25/20 08:55 96 10/25/20 08:35 150/80 H 10/25/20 07:27 98 F 102 H 16 150/80 H 96 Weight Admit Weight 178 lb 9.6 oz Weight 178 lb 9.6 oz I&O: 10/24/20 10/25/20 10/26/20 06:59 06:59 06:59 Intake Total 550 Output Total 500 Balance 50 Result Diagrams: 10/24/20 18:41 10/24/20 18:41 Additional Labs: Accuchecks 10/25/20 10/25/20 10/25/20 15:20 12:50 05:59 POC Glucose 110 H 88 96 Labs and MARs reviewed by ar Hospitalist ROS - Review of Systems Cardiovascular: denies: chest pain, palpitations, orthopnea, paroxysmal noc. dyspnea, edema, light headedness Gastrointestinal: denies: nausea, vomiting, abdominal pain, diarrhea, constipation, melena, hematochezia - Medication Medications: Active Medications Generic Name Dose Route Start Last Admin Trade Name Freq PRN Reason Stop Dose Admin Hydrocodone Bitart/Acetaminophen 1 tab 10/24/20 21:20 10/25/20 14:54 Hydrocodone/Acetaminophen 10/325 Mg Tablet PO 1 tab Q6H PRN Administration Pain Carvedilol 6.25 mg 10/25/20 09:00 10/25/20 08:35 Carvedilol 6.25 Mg Tab PO 6.25 mg DAILY PRECIOUS Administration Famotidine 20 mg 10/25/20 09:00 10/25/20 08:36 Famotidine 20 Mg Tab PO 20 mg BID PRECIOUS Administration Furosemide 40 mg 10/25/20 09:00 10/25/20 08:36 Furosemide 40 Mg Tab PO 40 mg DAILY PRECIOUS Administration Gabapentin 800 mg 10/25/20 09:00 10/25/20 14:52 Gabapentin 400 Mg Cap PO 800 mg TID PRECIOUS Administration Heparin Sodium (Porcine) 5,000 units 10/25/20 09:00 10/25/20 08:36 Heparin 5,000 Units/Ml Vial SC 5,000 units BID PRECIOUS Administration Ampicillin Sodium/Sulbactam 100 mls @ 200 mls/hr 10/24/20 23:59 10/25/20 11:53 Sodium 3 gm/ Sodium Chloride IVPB 100 mls Q6HR PRECIOUS Administration Vancomycin HCl 1.5 gm/ Device 300 mls @ 200 mls/hr 10/25/20 09:00 10/25/20 09:46 IVPB 300 mls Q12HR PRECIOUS Administration Sodium Chloride 1,000 mls @ 100 mls/hr 10/25/20 13:15 10/25/20 13:32 Normal Saline 0.9% IV 1,000 mls .Q10H PRECIOUS Administration Lidocaine 1 patch 10/24/20 23:59 10/25/20 00:16 Lidocaine 5% Patch TD 1 patch 2359 PRECIOUS Administration Miscellaneous Medication 1 each 10/25/20 12:00 10/25/20 11:54 Lidocaine Patch Removal TOP 1 each 1200 PRECIOUS Administration Morphine Sulfate 2 mg 10/24/20 21:25 10/25/20 13:32 Morphine 2 Mg/Ml Vial SLOW IVP 2 mg Q4H PRN Administration severe pain 4-10 Pantoprazole Sodium 40 mg 10/25/20 09:00 10/25/20 08:35 Pantoprazole 40 Mg Tab PO 40 mg DAILY PRECIOUS Administration Polyethylene Glycol 17 gm 10/25/20 09:00 10/25/20 08:36 Polyethylene Glycol 3350 17 Gm Packet PO 17 gm DAILY PRECIOUS Administration Tizanidine HCl 2 mg 10/25/20 09:00 10/25/20 08:35 Tizanidine Hcl 4 Mg Tab PO 2 mg BID PRECIOUS Administration Tramadol HCl 50 mg 10/25/20 09:00 10/25/20 08:35 Tramadol Hcl 50 Mg Tab PO 50 mg BID PRECIOUS Administration Hospitalist Exam Vitals: Vital Signs (12 hours) Temp Pulse Resp BP BP Pulse Ox 10/25/20 15:21 79 14 97/66 97 10/25/20 13:20 76 106/62 10/25/20 11:38 76 87/55 L 10/25/20 11:08 97.9 F 76 14 96 10/25/20 08:55 96 10/25/20 08:35 150/80 H 10/25/20 07:27 98 F 102 H 16 150/80 H 96 Weight Admit Weight 178 lb 9.6 oz Weight 178 lb 9.6 oz General Appearance: awake alert Eye: anicteric sclera ENT: moist mucosa Neck: supple Heart: RRR Respiratory: CTAB Gastrointestinal: soft, non-tender Skin: no rashes Psychiatric: normal affect, normal behavior Hosp A/P - Plan # bilateral lower extremity ulcers and cellulitis - continue vancomycin/unasyn - wound care consult - follow cultures - case management/PT/OT consults # history of HCV - to be followed up as outpatient # chronic lower back pain - PRN pain meds # HLD - continue statin # HTN - monitor vital signs and titrate antihypertensives as needed # hypokalemia - recheck labs # DM - continue SSI AC/HS
[2020-10-26] MEDS: Morphine 2 MG/ML VIAL SLOW IVP PRN ×4 (02:08→21:34)
[2020-10-26] MEDS: Sodium Chloride 0.9% 1,000 ML IV SCH ×3 (04:25→20:59)
[2020-10-26] MEDS: Ampicillin/Sulbactam 3 GM in Sodium Chloride 0.9% 100 ML IVPB SCH ×4 (07:01→23:45)
[2020-10-26] MEDS: traMADol HCl 50 MG TAB PO SCH ×2 (08:04→21:00)
[2020-10-26] MEDS: Gabapentin 400 MG CAP PO SCH ×3 (08:04→20:59)
[2020-10-26] MEDS: Polyethylene Glycol 3350 17 GM Packet PO SCH (08:05)
[2020-10-26] MEDS: tiZANidine HCl 4 MG TAB PO SCH ×2 (08:05→21:00)
[2020-10-26] MEDS: Famotidine 20 MG TAB PO SCH ×2 (08:05→20:59)
[2020-10-26] MEDS: Carvedilol 6.25 MG TAB PO SCH (08:05)
[2020-10-26] MEDS: Furosemide 40 MG TAB PO SCH (08:05)
[2020-10-26 08:35] LABS: Vancomycin, Trough 15.6 ug/mL
[2020-10-26] MEDS: Vancomycin 1.5 GRAM/300 ML BAG 1.5 GM in Premix Bag 1 BAG IVPB SCH ×2 (08:59→20:59)
[2020-10-26] MEDS: HYDROcodone/Acetaminophen 10/325 mg Tablet PO PRN (09:04)
[2020-10-26 09:42] LABS: #Basophils 0.1 thou/uL (0.0-0.2); #Eosinphils 0.5 thou/uL (0.0-0.7); #Monocytes 0.6 thou/uL (0.11-0.59); %Basophils 1.2 % (0.0-1.0); %Eosinophils 9.2 % (0.0-10.0); %Lymphocytes 38.5 % (21.0-51.0); %Monocytes 11.5 % (0.0-10.0); %Neutrophils 39.6 % (42.0-75.0); Hemoglobin 12.4 g/dL (14.0-18.0); Mean Corpuscular HGB CONC 33.1 g/dL (32.0-36.0); Mean Corpuscular Hemoglobin 31.6 pg (27.0-31.0); Mean Corpuscular Volume 95.7 fL (78.0-98.0); Mean Platelet Volume 9.1 fL (7.4-10.4); Platelet Count 90 thou/uL (130-400); Platelet Morphology Comment Appears Decreased; RBC Distribution Width 12.9 % (11.5-14.5); Red Blood Cell (RBC) Count 3.91 mill/uL (4.70-6.10); White Blood Cell (WBC) Count 5.1 thou/uL (4.8-10.8)
[2020-10-26] MEDS: Heparin 5,000 UNITS/ML VIAL SC SCH ×2 (09:48→21:00)
[2020-10-26] MEDS: Lidocaine Patch Removal TOP SCH (11:20)
--- NOTE | 2020-10-26 15:55 | PDOC.HOSPP ---
- Subjective Encounter Date: 10/26/20 Encounter Time: 09:00 Subjective: Patient seen in follow-up for cellulitis of lower extremity. He denies chest pain or shortness of breath. - Objective Vital Signs & Weight: Vital Signs (12 hours) Temp Pulse Resp BP BP Pulse Ox 10/26/20 15:53 98.0 F 80 16 107/62 97 10/26/20 12:00 98.1 F 96 18 152/65 H 94 L 10/26/20 08:05 162/78 H 10/26/20 08:04 98 10/26/20 07:51 98.0 F 93 18 162/78 H 98 10/26/20 04:00 97.1 F L 96 18 160/74 H 99 Weight Admit Weight 178 lb 9.6 oz Weight 178 lb 9.6 oz I&O: 10/25/20 10/26/20 10/27/20 06:59 06:59 06:59 Intake Total 550 1800 Output Total 500 1050 Balance 50 750 Result Diagrams: 10/26/20 09:01 10/24/20 18:41 Additional Labs: Accuchecks 10/26/20 10/25/20 06:08 20:10 POC Glucose 102 H 79 I reviewed patient's labs and MAR Hospitalist ROS - Review of Systems Cardiovascular: denies: chest pain, palpitations, orthopnea, paroxysmal noc. dyspnea, edema, light headedness Gastrointestinal: denies: nausea, vomiting, abdominal pain, diarrhea, constipation, melena, hematochezia - Medication Medications: Active Medications Generic Name Dose Route Start Last Admin Trade Name Freq PRN Reason Stop Dose Admin Hydrocodone Bitart/Acetaminophen 1 tab 10/24/20 21:20 10/26/20 09:04 Hydrocodone/Acetaminophen 10/325 Mg Tablet PO 1 tab Q6H PRN Administration Pain Carvedilol 6.25 mg 10/25/20 09:00 10/26/20 08:05 Carvedilol 6.25 Mg Tab PO 6.25 mg DAILY PRECIOUS Administration Famotidine 20 mg 10/25/20 09:00 10/26/20 08:05 Famotidine 20 Mg Tab PO 20 mg BID PRECIOUS Administration Furosemide 40 mg 10/25/20 09:00 10/26/20 08:05 Furosemide 40 Mg Tab PO 40 mg DAILY PRECIOUS Administration Gabapentin 800 mg 10/25/20 09:00 10/26/20 14:06 Gabapentin 400 Mg Cap PO 800 mg TID PRECIOUS Administration Heparin Sodium (Porcine) 5,000 units 10/25/20 09:00 10/26/20 09:48 Heparin 5,000 Units/Ml Vial SC Not Given BID PRECIOUS Ampicillin Sodium/Sulbactam 100 mls @ 200 mls/hr 10/24/20 23:59 10/26/20 11:20 Sodium 3 gm/ Sodium Chloride IVPB 100 mls Q6HR PRECIOUS Administration Vancomycin HCl 1.5 gm/ Device 300 mls @ 200 mls/hr 10/25/20 09:00 10/26/20 08:59 IVPB 300 mls Q12HR PRECIOUS Administration Sodium Chloride 1,000 mls @ 100 mls/hr 10/25/20 13:15 10/26/20 10:17 Normal Saline 0.9% IV Not Given .Q10H PRECIOUS Lidocaine 1 patch 10/24/20 23:59 10/25/20 23:51 Lidocaine 5% Patch TD 1 patch 235 PRECIOUS Administration Miscellaneous Medication 1 each 10/25/20 12:00 10/26/20 11:20 Lidocaine Patch Removal TOP 1 each 1200 PRECIOUS Administration Morphine Sulfate 2 mg 10/24/20 21:25 10/26/20 14:06 Morphine 2 Mg/Ml Vial SLOW IVP 2 mg Q4H PRN Administration severe pain 4-10 Pantoprazole Sodium 40 mg 10/25/20 09:00 10/26/20 08:05 Pantoprazole 40 Mg Tab PO 40 mg DAILY PRECIOUS Administration Polyethylene Glycol 17 gm 10/25/20 09:00 10/26/20 08:05 Polyethylene Glycol 3350 17 Gm Packet PO 17 gm DAILY PRECIOUS Administration Tizanidine HCl 2 mg 10/25/20 09:00 10/26/20 08:05 Tizanidine Hcl 4 Mg Tab PO 2 mg BID PRECIOUS Administration Tramadol HCl 50 mg 10/25/20 09:00 10/26/20 08:04 Tramadol Hcl 50 Mg Tab PO 50 mg BID PRECIOUS Administration Hospitalist Exam Vitals: Vital Signs (12 hours) Temp Pulse Resp BP BP Pulse Ox 10/26/20 15:53 98.0 F 80 16 107/62 97 10/26/20 12:00 98.1 F 96 18 152/65 H 94 L 10/26/20 08:05 162/78 H 01/30/21 08:04 98 10/26/20 07:51 98.0 F 93 18 162/78 H 98 10/26/20 04:00 97.1 F L 96 18 160/74 H 99 Weight Admit Weight 178 lb 9.6 oz Weight 178 lb 9.6 oz General Appearance: awake alert Eye: anicteric sclera ENT: normocephalic atraumatic Neck: supple Heart: RRR Respiratory: CTAB Gastrointestinal: soft, non-tender Skin: no rashes Psychiatric: normal affect, normal behavior Hosp A/P - Plan # bilateral lower extremity ulcers and cellulitis -Patient is on vancomycin/unasyn - wound care consult -ID consult - follow cultures - case management/PT/OT consults # history of HCV -stable, to follow-up as outpatient # chronic lower back pain - PRN pain meds # HLD - continue statin # HTN -stable, monitor vital signs and titrate antihypertensives as needed # hypokalemia - recheck labs # DM - continue Accu-Cheks and insulin sliding scale
[2020-10-26] MEDS: Lidocaine 5% Patch TD SCH (23:45)
[2020-10-27] MEDS: Morphine 2 MG/ML VIAL SLOW IVP PRN ×3 (01:50→23:10)
[2020-10-27] MEDS: Ampicillin/Sulbactam 3 GM in Sodium Chloride 0.9% 100 ML IVPB SCH ×3 (05:00→17:06)
[2020-10-27] MEDS: Sodium Chloride 0.9% 1,000 ML IV SCH ×2 (06:52→14:29)
[2020-10-27 07:01] LABS: #Basophils 0.1 thou/uL (0.0-0.2); #Eosinphils 0.4 thou/uL (0.0-0.7); #Monocytes 0.6 thou/uL (0.11-0.59); #Neutrophils 2.4 thou/uL (1.40-6.50); %Eosinophils 7.9 % (0.0-10.0); %Lymphocytes 37.3 % (21.0-51.0); %Monocytes 10.2 % (0.0-10.0); %Neutrophils 43.6 % (42.0-75.0); Hemoglobin 13.2 g/dL (14.0-18.0); Mean Corpuscular HGB CONC 33.6 g/dL (32.0-36.0); Mean Corpuscular Hemoglobin 32.1 pg (27.0-31.0); Mean Corpuscular Volume 95.7 fL (78.0-98.0); Mean Platelet Volume 8.7 fL (7.4-10.4); Platelet Count 98 thou/uL (130-400); White Blood Cell (WBC) Count 5.5 thou/uL (4.8-10.8)
[2020-10-27 07:18] LABS: Anion Gap 12 mmol/L (10-20); BUN (Urea Nitrogen) 5 mg/dL (8.4-25.7); Calc. Creatinine Clearance 114 mL/min (70-130); Calcium 7.9 mg/dL (7.8-10.44); Carbon Dioxide 25 mmol/L (23-31); Chloride 109 mmol/L (98-107); Glucose 91 mg/dL (80-115); Potassium 3.4 mmol/L (3.5-5.1); Sodium 143 mmol/L (136-145)
[2020-10-27] MEDS: HYDROcodone/Acetaminophen 10/325 mg Tablet PO PRN ×3 (07:22→19:06)
[2020-10-27 08:29] LABS: Phosphorus 2.8 mg/dL (2.3-4.7)
[2020-10-27] MEDS: Furosemide 40 MG TAB PO SCH (08:44)
[2020-10-27] MEDS: Carvedilol 6.25 MG TAB PO SCH (08:44)
[2020-10-27] MEDS: Gabapentin 400 MG CAP PO SCH ×3 (08:44→20:01)
[2020-10-27] MEDS: tiZANidine HCl 4 MG TAB PO SCH ×2 (08:45→20:00)
[2020-10-27] MEDS: traMADol HCl 50 MG TAB PO SCH ×3 (08:46→20:01)
[2020-10-27] MEDS: Vancomycin 1.5 GRAM/300 ML BAG 1.5 GM in Premix Bag 1 BAG IVPB SCH ×2 (08:48→21:41)
[2020-10-27] MEDS: Heparin 5,000 UNITS/ML VIAL SC SCH (08:49)
[2020-10-27] MEDS: Polyethylene Glycol 3350 17 GM Packet PO SCH (08:50)
[2020-10-27] MEDS ORDERED: Potassium Chloride 20 MEQ TAB PO SCH (10:30)
[2020-10-27] MEDS ORDERED: Magnesium 2 GM/50 ML 2 GM in Premix Bag 1 BAG IVPB SCH (10:30)
[2020-10-27] MEDS: Lidocaine Patch Removal TOP SCH (12:20)
--- NOTE | 2020-10-27 17:34 | PDOC.HOSPP ---
- Subjective Encounter Date: 10/27/20 Encounter Time: 12:30 Subjective: Patient seen and examined for bilateral lower extremity cellulitis. Lower extremity pain uncontrolled. Denies any fever or chills. Feels generally weak. - Objective Vital Signs & Weight: Vital Signs (12 hours) Temp Pulse Resp BP BP Pulse Ox 10/27/20 15:38 97.5 F L 71 17 117/76 100 10/27/20 11:15 97.5 F L 84 17 96/59 L 96 10/27/20 08:46 99 10/27/20 08:44 154/72 H 10/27/20 07:35 97.9 F 96 18 154/72 H 99 Weight Admit Weight 178 lb 9.6 oz Weight 178 lb 9.6 oz I&O: 10/26/20 10/27/20 10/28/20 06:59 06:59 06:59 Intake Total 1800 3700 Output Total 1050 2900 Balance 750 800 Result Diagrams: 10/27/20 06:37 10/27/20 06:37 Additional Labs: Accuchecks 10/27/20 10/27/20 10/27/20 15:39 11:02 05:44 POC Glucose 89 97 86 10/26/20 22:20 POC Glucose 114 H Abnormal Lab Results - Last 48 hrs 10/26/20 09:01: RBC 3.91 L, Hgb 12.4 L, Hct 37.5 L, MCH 31.6 H, Plt Count 90 L, Neutrophils % 39.6 L, Monocytes % 11.5 H, Basophils % 1.2 H, Monocytes # 0.6 H, Plt Morphology Comment Appears Decreased L 10/27/20 06:37: Potassium 3.4 L, Chloride 109 H, BUN 5 L 10/27/20 06:37: RBC 4.10 L, Hgb 13.2 L, Hct 39.3 L, MCH 32.1 H, Plt Count 98 L, Monocytes % 10.2 H, Monocytes # 0.6 H Microbiology - Entire Visit 10/24/20 20:16 Venous blood - Right Hand Blood Culture - Preliminary NO GROWTH AT 48 HOURS 10/24/20 20:16 Venous blood - Left Hand Blood Culture - Preliminary NO GROWTH AT 48 HOURS Radiology Reviewed by me: Yes (X-ray lower extremityreviewed) Hospitalist ROS - Review of Systems Respiratory: denies: cough, dry, shortness of breath, hemoptysis, SOB with excertion, pleuritic pain, sputum, wheezing, other Cardiovascular: denies: chest pain, palpitations, orthopnea, paroxysmal noc. dyspnea, edema, light headedness, other - Medication Medications: Active Medications Generic Name Dose Route Start Last Admin Trade Name Freq PRN Reason Stop Dose Admin Hydrocodone Bitart/Acetaminophen 1 tab 10/24/20 21:20 10/27/20 13:17 Hydrocodone/Acetaminophen 10/325 Mg Tablet PO 1 tab Q6H PRN Administration Pain Carvedilol 6.25 mg 10/25/20 09:00 10/27/20 08:44 Carvedilol 6.25 Mg Tab PO 6.25 mg DAILY PRECIOUS Administration Furosemide 40 mg 10/25/20 09:00 10/27/20 08:44 Furosemide 40 Mg Tab PO 40 mg DAILY PRECIOUS Administration Gabapentin 800 mg 10/25/20 09:00 10/27/20 14:25 Gabapentin 400 Mg Cap PO 800 mg TID PRECIOUS Administration Ampicillin Sodium/Sulbactam 100 mls @ 200 mls/hr 10/24/20 23:59 10/27/20 17:06 Sodium 3 gm/ Sodium Chloride IVPB 100 mls Q6HR PRECIOUS Administration Vancomycin HCl 1.5 gm/ Device 300 mls @ 200 mls/hr 10/25/20 09:00 10/27/20 08:48 IVPB 300 mls Q12HR PRECIOUS Administration Sodium Chloride 1,000 mls @ 100 mls/hr 10/25/20 13:15 10/27/20 14:29 Normal Saline 0.9% IV Not Given .Q10H PRECIOUS Lidocaine 1 patch 10/24/20 23:59 10/26/20 23:45 Lidocaine 5% Patch TD 1 patch 0600 PRECIOUS Administration Miscellaneous Medication 1 each 10/25/20 12:00 10/27/20 12:20 Lidocaine Patch Removal TOP 1 each 1200 PRECIOUS Administration Morphine Sulfate 2 mg 10/24/20 21:25 10/27/20 15:57 Morphine 2 Mg/Ml Vial SLOW IVP 2 mg Q4H PRN Administration severe pain 4-10 Pantoprazole Sodium 40 mg 10/25/20 09:00 10/27/20 08:45 Pantoprazole 40 Mg Tab PO 40 mg DAILY PRECIOUS Administration Polyethylene Glycol 17 gm 10/25/20 09:00 10/27/20 08:50 Polyethylene Glycol 3350 17 Gm Packet PO 17 gm DAILY PRECIOUS Administration Tizanidine HCl 2 mg 10/25/20 09:00 10/27/20 08:45 Tizanidine Hcl 4 Mg Tab PO 2 mg BID PRECIOUS Administration Tramadol HCl 50 mg 10/27/20 15:00 10/27/20 14:26 Tramadol Hcl 50 Mg Tab PO 50 mg TID PRECIOUS Administration Hospitalist Exam Vitals: Vital Signs (12 hours) Temp Pulse Resp BP BP Pulse Ox 10/27/20 15:38 97.5 F L 71 17 117/76 100 10/27/20 11:15 97.5 F L 84 17 96/59 L 96 10/27/20 08:46 99 10/27/20 08:44 154/72 H 10/27/20 07:35 97.9 F 96 18 154/72 H 99 Weight Admit Weight 178 lb 9.6 oz Weight 178 lb 9.6 oz General Appearance: awake alert Neck: supple, no JVD Heart: RRR, no gallops Respiratory: no rales, no ronchi Gastrointestinal: non-tender, normal bowel sounds Extremities: no cyanosis Extremities - other findings: Bilateral lower extremity dressing Neurological: no new deficit Hosp A/P - Plan Impression: Bilateral lower extremity cellulitis/venous stasis ulcers Recent hospitalization for above Acute pain due to above Chronic low back pain Hypertension Hyper lipidemia Chronic anemia suspected due to nutritional deficiency Hypokalemia/hypomagnesemia Chronic hepatitis C/abnormal LFTs Thrombocytopenia probably due to liver dysfunction Lactic acidosis on admission Plan: Continue vancomycin. Discontinue Unasyn. Optimize pain control. Discontinue IV fluid. Continue wound care. Infectious disease input. Continue carvedilol. Replace potassium and magnesium. Hold heparin due to thrombocytopenia. Continue lidocaine patch. Continue PPIs. Discontinue Pepcid. Monitor vancomycin level. A.m. labs. Continue physical therapy lower extremity elevation
[2020-10-27 20:16] LABS: Vancomycin, Trough 19.7 ug/mL
--- NOTE | 2020-10-27 20:50 | CON ---
DATE OF CONSULTATION: 10/27/2020 REASON: Lower extremity wounds. HISTORY OF PRESENT ILLNESS: A 65-year-old who has a longstanding history of chronic hepatitis C, which apparently was treated with interferon and ribavirin in the past with unknown results. Also chronic back problems, status post 2 or 3 interventions in the past by Dr. Noel with chronic left lower extremity weakness, type 2 diabetes, hypertension, and chronic skin wounds in the lower extremities, which have been diagnosed as stasis ulcers. The patient had venogram and lower extremity ultrasound in the recent past. There is no evidence of deep vein thrombosis and the arterial evaluation showed good flow documented. So, the patient went to I think rehab in I believe [place]. Family took him out of there because they felt that he was not getting properly cared for and now is back in the hospital with worsening of the skin lesions. Denies any headaches. No sore throat, odynophagia, or dysphagia. No visual symptoms. He has chronic low back pain, which is unchanged. No vomiting, hematemesis, melena, hematochezia. No abdominal pain. Voiding without difficulty. He has weakness in left lower extremity, inability to ambulate for the past 5 years, uses a wheelchair. PAST MEDICAL HISTORY: Chronic hep C with prior treatment with pegylated interferon and ribavirin with unknown result, type 2 diabetes, hypertension, chronic low back problems with two or three interventions, chronic weakness to left lower extremity with inability to ambulate, hyperlipidemia, GERD. PAST SURGICAL HISTORY: Also includes cholecystectomy. SOCIAL HISTORY: Lives in [place]. Never smoker. ALLERGIES: NONE. CURRENT MEDICATIONS: 1. Inhalers. 2. Coreg. 3. Catapres. 4. Lasix. 5. Neurontin. 6. [place]. 7. Morphine. 8. Protonix. 9. . 10. Zanaflex. 11. Vancomycin. PHYSICAL EXAMINATION: VITAL SIGNS: With T-max 98, blood pressure 117/76, heart rate 71, respirations 17, O2 saturation 100. GENERAL: Unfortunately, the photos that have been taken were not uploaded into the system yet. The patient did not allow me to remove the dressings, so we are going to have to wait to review the photos. He appears in no distress. He has a peripheral IV access, is voiding in the urinal. No lymphadenopathy. HEENT: Ocular movements conjugate. The patient has no [place] teeth remaining. Oral mucosa normal. No jugular vein distention. LUNGS: Symmetric. Clear breath sounds. HEART: S1, S2, regular rate without murmurs. ABDOMEN: Soft but distended, question of ascites. GENITOURINARY: No bladder distention. EXTREMITIES: He has very weak left lower extremity, cannot stretch his leg. The right seems to be normal. Popliteal pulses are faintly palpable and without dorsalis pedis, 1+ on the left side. His upper extremity strength is preserved. NEUROLOGIC: Cognitive function appears to be intact. LABORATORY DATA: White cell count 5.5, hemoglobin 13, platelets 98,000 and 43% neutrophils. Creatinine 0.8, bilirubin 2.3, AST 79, ALT 46, albumin 2.9, globulin 5.5. Urinalysis is fairly normal except for urobilinogen. SARS-CoV-2 not detected. IMAGING DATA: Includes tibia-fibula x-ray with no acute findings. ASSESSMENT: 1. Chronic hep C, prior treatment, but unlikely to have resulted in cure with persistently elevated transaminases. 2. Type 2 diabetes. 3. Venous insufficiency with stasis ulcers as previously diagnosed. This has to be verified, and I have not had a chance of reviewing the photos. The patient did not allow me to remove the dressing at this time, maybe I can review it next time the wound care team is there. DISCUSSION: At this point, we will wait to review the photos. Most of those cases do not require antimicrobial therapy, being managed with compression dressing. However, in the face of likely uncontrolled hep C, the possibility of an alternate diagnosis such as cryoglobulinemia associated ulcers and vasculitis needs to be considered. Again, we will wait to review the photos or directly the skin lesions themselves once the wound management removes the dressing. We will check his hepatitis C RNA-PCR and genotype in preparation for treatment with much more effective direct antiviral agents. Job ID: [id number] [facility]
[2020-10-28] MEDS: HYDROcodone/Acetaminophen 10/325 mg Tablet PO PRN ×5 (00:06→23:45)
[2020-10-28] MEDS: Lidocaine 5% Patch TD SCH ×2 (00:13→23:46)
[2020-10-28] MEDS: Morphine 2 MG/ML VIAL SLOW IVP PRN ×4 (02:48→19:49)
[2020-10-28 06:07] LABS: #Basophils 0.1 thou/uL (0.0-0.2); #Eosinphils 0.4 thou/uL (0.0-0.7); #Monocytes 0.5 thou/uL (0.11-0.59); #Neutrophils 1.8 thou/uL (1.40-6.50); %Basophils 1.1 % (0.0-1.0); %Eosinophils 8.3 % (0.0-10.0); %Lymphocytes 42.7 % (21.0-51.0); %Neutrophils 37.9 % (42.0-75.0); Hemoglobin 12.8 g/dL (14.0-18.0); Mean Corpuscular HGB CONC 33.9 g/dL (32.0-36.0); Mean Corpuscular Hemoglobin 33.2 pg (27.0-31.0); Mean Platelet Volume 8.9 fL (7.4-10.4); Platelet Count 81 thou/uL (130-400); Red Blood Cell (RBC) Count 3.85 mill/uL (4.70-6.10); White Blood Cell (WBC) Count 4.7 thou/uL (4.8-10.8)
[2020-10-28 06:24] LABS: Anion Gap 9 mmol/L (10-20); BUN (Urea Nitrogen) 7 mg/dL (8.4-25.7); Calc. Creatinine Clearance 105 mL/min (70-130); Calcium 8.2 mg/dL (7.8-10.44); Carbon Dioxide 27 mmol/L (23-31); Chloride 108 mmol/L (98-107); Glucose 123 mg/dL (80-115); Potassium 3.6 mmol/L (3.5-5.1); Sodium 140 mmol/L (136-145)
[2020-10-28] MEDS: tiZANidine HCl 4 MG TAB PO SCH ×2 (07:53→19:48)
[2020-10-28] MEDS: Gabapentin 400 MG CAP PO SCH ×3 (07:54→19:48)
[2020-10-28] MEDS: Furosemide 40 MG TAB PO SCH (07:54)
[2020-10-28] MEDS: Carvedilol 6.25 MG TAB PO SCH (07:54)
[2020-10-28] MEDS: traMADol HCl 50 MG TAB PO SCH ×3 (07:55→19:49)
[2020-10-28] MEDS: Polyethylene Glycol 3350 17 GM Packet PO SCH (07:57)
[2020-10-28] MEDS ORDERED: Vancomycin HCl 1.5 GM in Sodium Chloride 0.9% 250 ML 300 ML IVPB SCH (09:00)
[2020-10-28] MEDS: Lidocaine Patch Removal TOP SCH (14:28)
--- NOTE | 2020-10-28 16:46 | PRG ---
DATE OF SERVICE: 10/28/2020 SUBJECTIVE: Mr. Schroeder has no respiratory symptoms or abdominal pain. No vomiting. Unna boot was changed today and the wound appearance was reviewed and is described below. OBJECTIVE: VITAL SIGNS: He has been afebrile throughout, BP 130/70, heart rate 77, respiratory rate 16, and O2 saturation 100. SKIN: The skin below the Unna boot shows those shallow 100% granulation ulcers. There is one that is a little bit bigger. The other ones are quite small. LUNGS: Clear. HEART: S1 and S2. Regular rate. ABDOMEN: Soft, not distended. LABORATORY DATA: White cell count 4.7, hemoglobin 12.8, and platelets 81,000. Creatinine 0.79 and calcium 8.2. Blood cultures, no growth at 48 hours. ASSESSMENT AND DISCUSSION: 1. Chronic hepatitis C with likely prior failed treatment with pegylated interferon and ribavirin. 2. Type 2 diabetes. 3. Chronic back problems. 4. Weakness in left lower extremity, inability to ambulate. 5. Venous stasis ulcers. After reviewing the ulcers, I believe that there is no evidence of infection. We will go ahead and discontinue antimicrobials and consider discharge planning and continuation of compressive dressings. I will be glad to follow him up in the clinic and treat him for hepatitis C with likely [place]. Job ID: [id number]
[2020-10-29] MEDS: Morphine 2 MG/ML VIAL SLOW IVP PRN ×4 (03:48→22:05)
[2020-10-29 05:25] LABS: #Basophils 0.1 thou/uL (0.0-0.2); #Eosinphils 0.4 thou/uL (0.0-0.7); #Lymphocytes 2.1 thou/uL (1.20-3.40); #Monocytes 0.6 thou/uL (0.11-0.59); #Neutrophils 1.6 thou/uL (1.40-6.50); %Basophils 1.1 % (0.0-1.0); %Eosinophils 8.9 % (0.0-10.0); %Lymphocytes 43.3 % (21.0-51.0); %Monocytes 13.4 % (0.0-10.0); %Neutrophils 33.3 % (42.0-75.0); Hemoglobin 11.2 g/dL (14.0-18.0); Mean Corpuscular Hemoglobin 33.2 pg (27.0-31.0); Mean Corpuscular Volume 97.5 fL (78.0-98.0); Mean Platelet Volume 8.6 fL (7.4-10.4); Platelet Count 85 thou/uL (130-400); RBC Distribution Width 12.9 % (11.5-14.5); Red Blood Cell (RBC) Count 3.38 mill/uL (4.70-6.10); White Blood Cell (WBC) Count 4.8 thou/uL (4.8-10.8)
[2020-10-29 05:42] LABS: Anion Gap 10 mmol/L (10-20); BUN (Urea Nitrogen) 8 mg/dL (8.4-25.7); Calc. Creatinine Clearance 88 mL/min (70-130); Calcium 7.7 mg/dL (7.8-10.44); Carbon Dioxide 26 mmol/L (23-31); Chloride 107 mmol/L (98-107); Glucose 123 mg/dL (80-115); Potassium 3.5 mmol/L (3.5-5.1); Sodium 139 mmol/L (136-145)
[2020-10-29] MEDS: HYDROcodone/Acetaminophen 10/325 mg Tablet PO PRN ×4 (05:54→23:56)
[2020-10-29] MEDS ORDERED: Potassium Chloride 20 MEQ TAB PO SCH (08:00)
[2020-10-29 08:21] LABS: Vancomycin, Trough 15.3 ug/mL
[2020-10-29] MEDS: Gabapentin 400 MG CAP PO SCH ×3 (08:29→19:52)
[2020-10-29] MEDS: tiZANidine HCl 4 MG TAB PO SCH ×2 (08:29→19:52)
[2020-10-29] MEDS: Carvedilol 6.25 MG TAB PO SCH (08:30)
[2020-10-29] MEDS: Furosemide 40 MG TAB PO SCH (08:30)
[2020-10-29] MEDS: traMADol HCl 50 MG TAB PO SCH ×3 (08:30→19:52)
[2020-10-29] MEDS: Polyethylene Glycol 3350 17 GM Packet PO SCH (08:36)
--- NOTE | 2020-10-29 11:12 | PDOC.HOSPP ---
- Subjective Encounter Date: 10/28/20 Encounter Time: 11:30 Subjective: Patient seen and examined for bilateral lower extremity cellulitis. Denies any new complaints. Pain controlled. No fever or chills reported. - Objective Vital Signs & Weight: Vital Signs (12 hours) Temp Pulse Resp BP BP BP Pulse Ox 10/29/20 08:30 154/72 H 10/29/20 08:00 97.9 F 73 14 109/67 95 10/29/20 03:48 97.5 F L 73 16 112/66 95 10/28/20 23:38 97.5 F L 75 16 94/56 L 100 Weight Admit Weight 178 lb 9.6 oz Weight 178 lb 9.6 oz I&O: 10/28/20 10/29/20 10/30/20 06:59 06:59 06:59 Intake Total 2850 1150 Output Total 1825 800 Balance 1025 350 Result Diagrams: 10/29/20 04:57 10/29/20 04:57 Additional Labs: Accuchecks 10/28/20 10/28/20 10/28/20 20:40 15:23 11:21 POC Glucose 62 L 67 L 99 Abnormal Lab Results - Last 48 hrs 10/28/20 05:45: Chloride 108 H, Anion Gap 9 L, BUN 7 L 10/28/20 05:45: WBC 4.7 L, RBC 3.85 L, Hgb 12.8 L, Hct 37.7 L, MCH 33.2 H, Plt Count 81 L, Neutrophils % 37.9 L, Basophils % 1.1 H Microbiology - Entire Visit 10/24/20 20:16 Venous blood - Right Hand Blood Culture - Preliminary NO GROWTH AT 48 HOURS 10/24/20 20:16 Venous blood - Left Hand Blood Culture - Preliminary NO GROWTH AT 48 HOURS Radiology Reviewed by me: Yes (Lower extremity x-rayno fractures) Hospitalist ROS - Review of Systems Cardiovascular: denies: chest pain, palpitations, orthopnea, paroxysmal noc. dyspnea, edema, light headedness, other Gastrointestinal: denies: nausea, vomiting, abdominal pain, diarrhea, constipation, melena, hematochezia, other - Medication Medications: Active Medications Generic Name Dose Route Start Last Admin Trade Name Freq PRN Reason Stop Dose Admin Hydrocodone Bitart/Acetaminophen 1 tab 10/24/20 21:20 10/27/20 13:17 Hydrocodone/Acetaminophen 10/325 Mg Tablet PO 1 tab Q6H PRN Administration Pain Hydrocodone Bitart/Acetaminophen 2 tab 10/27/20 13:16 10/29/20 05:54 Hydrocodone/Acetaminophen 10/325 Mg Tablet PO 2 tab Q6H PRN Administration Severe Pain (7-10) Carvedilol 6.25 mg 10/25/20 09:00 10/29/20 08:30 Carvedilol 6.25 Mg Tab PO 6.25 mg DAILY PRECIOUS Administration Furosemide 40 mg 10/25/20 09:00 10/29/20 08:30 Furosemide 40 Mg Tab PO 40 mg DAILY PRECIOUS Administration Gabapentin 800 mg 10/25/20 09:00 10/29/20 08:29 Gabapentin 400 Mg Cap PO 800 mg TID PRECIOUS Administration Lidocaine 1 patch 10/24/20 23:59 10/28/20 23:46 Lidocaine 5% Patch TD 1 patch 7631 PRECIOUS Administration Miscellaneous Medication 1 each 10/25/20 12:00 10/28/20 14:28 Lidocaine Patch Removal TOP 1 each 1200 PRECIOUS Administration Morphine Sulfate 2 mg 10/24/20 21:25 10/29/20 08:38 Morphine 2 Mg/Ml Vial SLOW IVP 2 mg Q4H PRN Administration severe pain 4-10 Pantoprazole Sodium 40 mg 10/25/20 09:00 10/29/20 08:29 Pantoprazole 40 Mg Tab PO 40 mg DAILY PRECIOUS Administration Polyethylene Glycol 17 gm 10/25/20 09:00 10/29/20 08:36 Polyethylene Glycol 3350 17 Gm Packet PO Not Given DAILY PRECIOUS Sodium Chloride 10 ml 10/29/20 09:00 10/29/20 08:36 Flush - Normal Saline 10 Ml Syringe IVF 10 ml Q12HR PRECIOUS Administration Tizanidine HCl 2 mg 10/25/20 09:00 10/29/20 08:29 Tizanidine Hcl 4 Mg Tab PO 2 mg BID PRECIOUS Administration Tramadol HCl 50 mg 10/27/20 15:00 10/29/20 08:30 Tramadol Hcl 50 Mg Tab PO 50 mg TID PRECIOUS Administration Hospitalist Exam Vitals: Vital Signs (12 hours) Temp Pulse Resp BP BP BP Pulse Ox 10/29/20 08:30 154/72 H 10/29/20 08:00 97.9 F 73 14 109/67 95 10/29/20 03:48 97.5 F L 73 16 112/66 95 10/28/20 23:38 97.5 F L 75 16 94/56 L 100 Weight Admit Weight 178 lb 9.6 oz Weight 178 lb 9.6 oz General Appearance: awake alert Neck: supple, no JVD Heart: RRR, no gallops Respiratory: no wheezes, no ronchi Gastrointestinal: soft, non-distended Extremities: no cyanosis Extremities - other findings: Bilateral lower extremity compression dressing Neurological: no new deficit Hosp A/P - Plan Bilateral lower extremity cellulitis/venous stasis ulcers Recent hospitalization for above Acute pain due to above Chronic low back pain Hypertension Hyperlipidemia Chronic anemia suspected due to nutritional deficiency Hypokalemia/hypomagnesemia Chronic hepatitis C/abnormal LFTs Thrombocytopenia probably due to liver dysfunction Lactic acidosis on admission Plan: Infectious disease input appreciated. Continue vancomycin. Monitor vancomycin level. Recheck labs in a.m. No heparin or Lovenox due to thrombocytopenia. Continue carvedilol, gabapentin with lidocaine patch. Continue other medications as above. Hepatitis C RNA pending at this time 10/27 Continue vancomycin. Discontinue Unasyn. Optimize pain control. Discontinue IV fluid. Continue wound care. Infectious disease input. Continue carvedilol. Replace potassium and magnesium. Hold heparin due to thrombocytopenia. Continue lidocaine patch. Continue PPIs. Discontinue Pepcid. Monitor vancomycin level. A.m. labs. Continue physical therapy lower extremity elevation
[2020-10-29] MEDS: Lidocaine Patch Removal TOP SCH (12:35)
--- NOTE | 2020-10-29 19:31 | PDOC.HOSPP ---
- Subjective Encounter Date: 10/29/20 Encounter Time: 12:00 Subjective: Patient seen and examined for bilateral lower extremity venous stasis ulceration. Antibiotics discontinued per ID. Denies any new complaints. - Objective Vital Signs & Weight: Vital Signs (12 hours) Temp Pulse Resp BP BP Pulse Ox 10/29/20 15:31 97.0 F L 62 18 92/58 L 98 10/29/20 11:45 97.4 F L 70 16 108/73 96 10/29/20 08:30 154/72 H 10/29/20 08:00 97.9 F 73 14 109/67 95 Weight Admit Weight 178 lb 9.6 oz Weight 178 lb 9.6 oz I&O: 10/28/20 10/29/20 10/30/20 06:59 06:59 06:59 Intake Total 2850 1150 Output Total 1825 800 Balance 1025 350 Result Diagrams: 10/29/20 04:57 10/29/20 04:57 Additional Labs: Accuchecks 10/29/20 10/29/20 10/28/20 15:39 12:04 20:40 POC Glucose 131 H 134 H 62 L Hospitalist ROS - Review of Systems Cardiovascular: denies: chest pain, palpitations, orthopnea, paroxysmal noc. dyspnea, edema, light headedness, other Gastrointestinal: denies: nausea, vomiting, abdominal pain, diarrhea, constipation, melena, hematochezia, other - Medication Medications: Active Medications Generic Name Dose Route Start Last Admin Trade Name Freq PRN Reason Stop Dose Admin Hydrocodone Bitart/Acetaminophen 1 tab 10/24/20 21:20 10/27/20 13:17 Hydrocodone/Acetaminophen 10/325 Mg Tablet PO 1 tab Q6H PRN Administration Pain Hydrocodone Bitart/Acetaminophen 2 tab 10/27/20 13:16 10/29/20 18:47 Hydrocodone/Acetaminophen 10/325 Mg Tablet PO 2 tab Q6H PRN Administration Severe Pain (7-10) Carvedilol 6.25 mg 10/25/20 09:00 10/29/20 08:30 Carvedilol 6.25 Mg Tab PO 6.25 mg DAILY PRECIOUS Administration Furosemide 40 mg 10/25/20 09:00 10/29/20 08:30 Furosemide 40 Mg Tab PO 40 mg DAILY PRECIOUS Administration Gabapentin 800 mg 10/25/20 09:00 10/29/20 16:00 Gabapentin 400 Mg Cap PO 800 mg TID PRECIOUS Administration Lidocaine 1 patch 10/24/20 23:59 10/28/20 23:46 Lidocaine 5% Patch TD 1 patch 6666 PRECIOUS Administration Miscellaneous Medication 1 each 10/25/20 12:00 10/29/20 12:35 Lidocaine Patch Removal TOP 1 each 1200 PRECIOUS Administration Morphine Sulfate 2 mg 10/24/20 21:25 10/29/20 17:54 Morphine 2 Mg/Ml Vial SLOW IVP 2 mg Q4H PRN Administration severe pain 4-10 Pantoprazole Sodium 40 mg 10/25/20 09:00 10/29/20 08:29 Pantoprazole 40 Mg Tab PO 40 mg DAILY PRECIOUS Administration Polyethylene Glycol 17 gm 10/25/20 09:00 10/29/20 08:36 Polyethylene Glycol 3350 17 Gm Packet PO Not Given DAILY PRECIOUS Sodium Chloride 10 ml 10/29/20 09:00 10/29/20 08:36 Flush - Normal Saline 10 Ml Syringe IVF 10 ml Q12HR PRECIOUS Administration Tizanidine HCl 2 mg 10/25/20 09:00 10/29/20 08:29 Tizanidine Hcl 4 Mg Tab PO 2 mg BID PRECIOUS Administration Tramadol HCl 50 mg 10/27/20 15:00 10/29/20 16:01 Tramadol Hcl 50 Mg Tab PO 50 mg TID PRECIOUS Administration Hospitalist Exam Vitals: Vital Signs (12 hours) Temp Pulse Resp BP BP Pulse Ox 10/29/20 15:31 97.0 F L 62 18 92/58 L 98 10/29/20 11:45 97.4 F L 70 16 108/73 96 10/29/20 08:30 154/72 H 10/29/20 08:00 97.9 F 73 14 109/67 95 Weight Admit Weight 178 lb 9.6 oz Weight 178 lb 9.6 oz General Appearance: awake alert Heart: RRR, no gallops Respiratory: no wheezes, no ronchi Gastrointestinal: non-tender, normal bowel sounds Extremities: no cyanosis Extremities - other findings: Bilateral lower extremity dressing up to the knees Hosp A/P - Plan Bilateral lower extremity cellulitis/venous stasis ulcers Recent hospitalization for above Acute pain due to above Chronic low back pain Hypertension Hyperlipidemia Chronic anemia suspected due to nutritional deficiency Hypokalemia/hypomagnesemia Chronic hepatitis C/abnormal LFTs Thrombocytopenia probably due to liver dysfunction Lactic acidosis on admission Plan: Antibiotics discontinued per ID. Patient is stable for discharge back to nursing facility. However he is refusing to go back to the same facility. application developer manager has been consulted for assistance with this. Continue carvedilol, Lasix and pain medications as above. Replace potassium. 10/28 Infectious disease input appreciated. Continue vancomycin. Monitor vancomycin level. Recheck labs in a.m. No heparin or Lovenox due to thrombocytopenia. Continue carvedilol, gabapentin with lidocaine patch. Continue other medications as above. Hepatitis C RNA pending at this time 10/27 Continue vancomycin. Discontinue Unasyn. Optimize pain control. Discontinue IV fluid. Continue wound care. Infectious disease input. Continue carvedilol. Replace potassium and magnesium. Hold heparin due to thrombocytopenia. Continue lidocaine patch. Continue PPIs. Discontinue Pepcid. Monitor vancomycin level. A.m. labs. Continue physical therapy lower extremity elevation
[2020-10-30] MEDS: Lidocaine 5% Patch TD SCH
[2020-10-30] MEDS: Morphine 2 MG/ML VIAL SLOW IVP PRN (06:20)
[2020-10-30 08:12] VITALS: BP 129/68; TEMP 97.7
[2020-10-30] MEDS: Gabapentin 400 MG CAP PO SCH (09:29)
[2020-10-30] MEDS: traMADol HCl 50 MG TAB PO SCH (09:30)
[2020-10-30] MEDS: tiZANidine HCl 4 MG TAB PO SCH (09:30)
[2020-10-30] MEDS: Carvedilol 6.25 MG TAB PO SCH (09:30)
[2020-10-30] MEDS: Furosemide 40 MG TAB PO SCH (09:30)
[2020-10-30] MEDS: Polyethylene Glycol 3350 17 GM Packet PO SCH (09:31)
--- NOTE | 2020-10-30 12:40 | PDOC.DS.DS ---
Provider Date of Admission: 10/24/20 22:23 Date of Discharge: 10/30/20 Admitting Provider: Benedict Ricketts MD Consultations: Infectious Disease Primary Care Physician: Manisha Hsu MD Course Hospital Course: Patient is 65-year-old male with hypertension, diabetes mellitus type 2, hyperlipidemia and chronic hepatitis C presented to the hospital from nursing facility due to worsening of bilateral lower extremity skin lesion. Please refer to the history and physical for further details. Patient was admitted to the hospital with a diagnosis of bilateral lower extremity ulceration with cellulitis. He was started on broad-spectrum antibiotics on admission. Wound care team was also consulted. His WBC count on admission was 4.8 without significant left shift. He also had mild lactic acid osis at 2.3 on admission that improved with IV hydration. He was also evaluated by infectious disease. Per infectious disease patient does not require any further antimicrobial therapy. Compression dressing was recommended. Hepatitis C RNA is also been sent and pending at the time of discharge. He appears stable for discharge. He declined returning back to nursing facility. Home health care has been arranged. Fall precaution with 24-hour supervision was recommended. Patient understands above plan of care. Final diagnosis: Bilateral lower extremity cellulitis/venous stasis ulcers Recent hospitalization for above Acute pain due to above Chronic low back pain Hypertension Hyperlipidemia Chronic anemia suspected due to nutritional deficiency Hypokalemia/hypomagnesemia Chronic hepatitis C/abnormal LFTs Thrombocytopenia probably due to liver dysfunction Lactic acidosis on admission Lab Results: 10/29/20 04:57 10/29/20 04:57 Abnormal Lab Results - Last 48 hrs 10/29/20 04:57: BUN 8 L, Calcium 7.7 L 10/29/20 04:57: RBC 3.38 L, Hgb 11.2 L, Hct 33.0 L, MCH 33.2 H, Plt Count 85 L, Neutrophils % 33.3 L, Monocytes % 13.4 H, Basophils % 1.1 H, Monocytes # 0.6 H Microbiology - Entire Visit 10/24/20 20:16 Venous blood - Right Hand Blood Culture - Final NO GROWTH IN 5 DAYS 10/24/20 20:16 Venous blood - Left Hand Blood Culture - Final NO GROWTH IN 5 DAYS Vitals: Vital Signs (12 hours) Temp Pulse Resp BP BP Pulse Ox 10/30/20 09:30 129/68 98 10/30/20 07:30 97.7 F 69 18 129/68 98 Weight Admit Weight 178 lb 9.6 oz Weight 178 lb 9.6 oz Physical Exam: The patient was seen and examined on the day of discharge. General Appearance: NAD Neck: supple Respiratory: no wheezes, no ronchi Cardiovascular: RRR, no gallops Gastrointestinal: soft, non-distended Plan Home Medications: Medication Instructions Recorded Confirmed Type Gabapentin 800 mg PO TID 05/28/16 10/24/20 History traMADol HCl [Tramadol HCl] 50 mg PO BID 05/28/16 10/24/20 History Carvedilol 6.25 mg PO DAILY 11/09/18 10/24/20 History HYDROcodone/Acetaminophen [[place] 1 each PO Q6HR PRN 09/28/20 10/24/20 History 10-325 Tablet] Pantoprazole [Protonix] 40 mg PO DAILY 09/28/20 10/24/20 History Furosemide [Lasix] 40 mg PO DAILY #30 tab 10/04/20 10/24/20 Rx Lidocaine Patch Removal 1 each TOP 2300 #30 each 10/04/20 10/28/20 Rx Potassium Chloride [K-Dur] 20 meq PO DAILY #30 tab 10/04/20 10/28/20 Rx metFORMIN [Glucophage] 500 mg PO BID-WM #60 tab 10/04/20 10/24/20 Rx tiZANidine HCl [Zanaflex] 2 mg PO BID #60 capsule 10/04/20 10/24/20 Rx Allergies: No Known Allergies Allergy (Verified 09/28/20 04:51) Discharge Instructions:: Follow-up on hepatitis C RNA with PCP. Unna boots to bilateral lower extremities. Change q7 days. Referrals: [facility] - [facility] [Outside] (They will contact you with your appointment time. ) [facility] [Outside] ([facility] will contact you for a start date of services. ) Luke Blackburn MD [Active] - 10 Days Manisha Hus MD [Primary Care Provider] - 7 Days Disposition: HOME HEALTH Quality CORE MEASURES:: N/A
[2020-10-31 11:17] LABS: HCV log10 6.378 (.); Hep C PCR-Quant 2390000 IU/mL (.)
--- NOTE | 2020-11-01 05:10 | PQF ---
Dear : Fredrick Torrez Date 11/01/2020 Please exercise your independent, professional judgment in responding to the clarification form. Clinical indicators are provided on the bottom of this form for your review Can you please further clarify the diagnosis of the patient? Please check appropriate box(s): [ x ] Suspected bilateral lower extremity Cellulitis due to Diabetes on admission [ ] Bilateral Leg Cellulitis not due to Diabetes [ ] Other diagnosis please specify [ ] Unable to determine Physician Signature: Date/Time: For continuity of documentation, please document condition throughout progress notes and discharge summary. Thank You. To be completed by CDI/Coding staff for physician review: Present Clinical Indicators - Signs / Symptoms / Labs Results and Location in Medical Record [ x ] Lower extremity wounds presented to ED for ulcer issue H and P pg.1 [ x ] Bilateral lower extremity ulcers and cellulitis [ x ] Blood glucose: 96, 88, 110H, 79, 102H, 87, 92, 56L, 114H Laboratory [ x ] Lower extremity pain uncontrolled Hospitalist PN pg.1 10/27 [ x ] Chronic skin wounds in the lower extremities, which have been diagnosed as stasis ulcer Consult pg.1 [ x ] Admitted with diagnosis of bilateral lower extremity ulceration with cellulitis DS pg.1 [ x ] WBC: 10/24=4.8 10/26=5.1 10/28=4.7 10/29=4.8 Laboratory 10/24 Present Risk Factors Results and Location in Medical Record [ x ] DM H and P pg.1 [ x ] HTN H and P pg.1 [ x ] HLD H and P pg.1 [ x ] 65 years old H and P pg.1 [ x ] Venous insufficiency with stasis ulcer Consult pg.2 Present Treatments Results and Location in Medical Record [ x ] IV fluids MAR [ x ] Wound care consult H and P pg.4 [ x ] Infectious Consult Dr. Blackburn 10/27 [ x ] Metformin 500mg tab MAR [ x ] Cefepime 2gm IV MAR [ x ] Vancomycin 1.5gm IV MAR [ x ] Ampicillin 3gm IV MAR [ x ] Glucagon 1 gm IM MAR [ x ] Humalog SC MAR CDS/Guest Service Team Leader Signature: Mele Walls Phone #: ext [phone] Date 11/01/2020 This is a permanent part of the Medical Record [facility]
== END 2020-10-30 12:15 | disposition home health service (06) | DRG 638 ==
LOC: ERS 18:07 → SURG A 22:23
PROVIDERS: ADMIT Internal Medicine; ATTEND Internal Medicine
DX: E11.628 Type 2 diabetes mellitus with other skin complications (principal); L03.115 Cellulitis of right lower limb; E87.2 Acidosis; L97.829 Non-pressure chronic ulcer of other part of left lower leg with unspecified severity; L97.819 Non-pressure chronic ulcer of other part of right lower leg with unspecified severity; L03.116 Cellulitis of left lower limb; I87.2 Venous insufficiency (chronic) (peripheral); M54.5 Low back pain; Z20.822 Contact with and (suspected) exposure to COVID-19; G89.29 Other chronic pain; I10 Essential (primary) hypertension; E78.5 Hyperlipidemia, unspecified; E87.6 Hypokalemia; D69.59 Other secondary thrombocytopenia; E78.00 Pure hypercholesterolemia, unspecified; K21.9 Gastro-esophageal reflux disease without esophagitis; E83.42 Hypomagnesemia; Z90.49 Acquired absence of other specified parts of digestive tract; Z98.890 Other specified postprocedural states; Z79.899 Other long term (current) drug therapy; B18.2 Chronic viral hepatitis C; D53.9 Nutritional anemia, unspecified
CPT/HCPCS: 36415; 36416; 80048; 80053; 80202; 81003; 83605; 83735; 84100; 85025; 87040; 87522; 87635; 96365; 96367; J0295; J0692; J1644; J2270; J3370; J3475; J3490; J7050; U0003; U0005

== ENCOUNTER 2021-07-24 15:57 | Inpatient (IN) | payer MEDICARE, MEDICAID ==
[~2021-07-24 15:57] MED LIST: Iopamidol 370 76% 100 ML VIAL ONE; Magnevist 469MG/ML 20 ML VIAL ONE
[2021-07-24 16:38] LABS: Actual Bicarbonate (HCO3v) 25 mEq/L (22-28); Analyzer IN Cardio ER; Base Excess -0.4 mEq/L (-2.0 to +3.0); Calcium, Ionized (venous) 1.07 mmol/L (1.16-1.32); Chloride (VBG) 101 mmol/L (98-106); Hemoglobin (Hb) 13.9 g/dL (12.6-17.4); Potassium (VBG) 3.42 mmol/L (3.70-5.30); Sodium 138.5 mmol/L (133-146); pH (venous) 7.38 (7.32-7.43)
[2021-07-24 16:47] LABS: Hemoglobin 13.7 g/dL (14.0-18.0); Mean Corpuscular HGB CONC 32.5 g/dL (32.0-36.0); Mean Corpuscular Hemoglobin 31.9 pg (27.0-31.0); Mean Corpuscular Volume 98.1 fL (78.0-98.0); Mean Platelet Volume 8.8 fL (7.4-10.4); Platelet Count 113 thou/uL (130-400); RBC Distribution Width 13.3 % (11.5-14.5)
[2021-07-24 17:16] LABS: Band 2 % (5-11); Lymphocytes 22 % (21-51); MDiff Complete? YES; Monocytes 12 % (0-10); Neutrophil 62 % (42-75); Platelet Morphology Comment Appears Decreased; RBC Morphology Normal; White Blood Cell (WBC) Count 8.7 thou/uL (4.8-10.8)
[2021-07-24 17:54] LABS: ALT (SGPT) 52 U/L (8-55); AST (SGOT) 200 U/L (5-34); Albumin 2.7 g/dL (3.4-4.8); Alkaline Phosphatase 89 U/L (40-110); Anion Gap 20 mmol/L (10-20); BUN (Urea Nitrogen) 13 mg/dL (8.4-25.7); Bilirubin, Total 3.2 mg/dL (0.2-1.2); Calc. Creatinine Clearance 0 mL/min (70-130); Calcium 8.4 mg/dL (7.8-10.44); Carbon Dioxide 20 mmol/L (23-31); Chloride 102 mmol/L (98-107); Globulin 6.4 g/dL (2.4-3.5); Glucose 80 mg/dL (80-115); Lipase 112 U/L (8-78); Protein, Total 9.1 g/dL (5.8-8.1); Sodium 138 mmol/L (136-145)
[2021-07-24 19:09] LABS: Bacteria/HPF None Seen HPF (None Seen); Bilirubin 1+ (Negative); Blood, Urine Negative (Negative); Clarity Clear (Clear); Glucose, Urine (Dipstick) Normal (Negative); Ketone, Urine Trace mg/dL (Negative); Leukocyte 25 Leu/uL (Negative); Nitrite Negative (Negative); Protein, Urine (Dipstick) Negative (Neg-Trace); RBC/HPF 0-3 HPF (0-3); Squamous Epithelial 0-3 HPF (0-3); Urobilinogen Greater than 12 mg/dL (Less than 2)
[2021-07-24] MEDS ORDERED: cefTRIAXone\\ROCEPHIN 2 GM VIAL ONE (20:04)
[2021-07-24] MEDS ORDERED: VANCOMYCIN 1.75 GM/350 ML BAG 1.75 GM in Premix Bag 1 BAG IVPB SCH (20:15)
[2021-07-24] MEDS ORDERED: HumaLOG 300 UNITS/3 ML VIAL SC PRN ×2 (21:32)
[2021-07-24] MEDS ORDERED: Ondansetron ODT 4 MG TAB PO PRN (21:32)
[2021-07-24] MEDS ORDERED: Dextrose 50% Abboject 50 ML SYRINGE SLOW IVP PRN (21:32)
[2021-07-24] MEDS ORDERED: Senokot S 8.6-50 MG TAB PO PRN (21:32)
[2021-07-24] MEDS ORDERED: Acetaminophen 325 MG TAB PO PRN (21:32)
[2021-07-24] MEDS ORDERED: Dextrose 5% in Water 1,000 ML IV PRN (21:32)
[2021-07-24] MEDS ORDERED: Sodium Chloride 0.9% 1,000 ML IV SCH (21:45)
[2021-07-24] MEDS ORDERED: Enoxaparin Sodium 40 MG/0.4 ML SYRINGE SC SCH (22:00)
[2021-07-24] MEDS: HYDROcodone/Acetaminophen 7.5/325 mg Tablet PO PRN (22:37)
[2021-07-24 23:32] VITALS: BMI 28.8
[2021-07-25] MEDS: HYDROcodone/Acetaminophen 7.5/325 mg Tablet PO PRN ×3 (02:23→12:03)
[2021-07-25 05:07] LABS: Hemoglobin A1c 7.5 % (4.0-6.0)
[2021-07-25 05:18] LABS: Hemoglobin 11.9 g/dL (14.0-18.0); Hypochromia SLIGHT = 6-15 cells (100X) (0-5/hpf); Lymphocytes 39 % (21-51); MDiff Complete? YES; Mean Corpuscular HGB CONC 32.9 g/dL (32.0-36.0); Mean Corpuscular Hemoglobin 32.3 pg (27.0-31.0); Mean Platelet Volume 8.7 fL (7.4-10.4); Monocytes 4 % (0-10); Neutrophil 57 % (42-75); Platelet Count 99 thou/uL (130-400); Platelet Morphology Comment Appears Decreased; RBC Distribution Width 13.3 % (11.5-14.5); Red Blood Cell (RBC) Count 3.68 mill/uL (4.70-6.10); White Blood Cell (WBC) Count 7.7 thou/uL (4.8-10.8)
[2021-07-25 05:32] LABS: Anion Gap 13 mmol/L (10-20); BUN (Urea Nitrogen) 10 mg/dL (8.4-25.7); Calc. Creatinine Clearance 100 mL/min (70-130); Carbon Dioxide 25 mmol/L (23-31); Chloride 104 mmol/L (98-107); Glucose 129 mg/dL (80-115); Lipase 130 U/L (8-78); Magnesium 2.1 mg/dL (1.6-2.6); Sodium 139 mmol/L (136-145)
[2021-07-25 06:00] LABS: Potassium 2.8 mmol/L (3.5-5.1)
[2021-07-25] MEDS ORDERED: Electrolyte Replacement Protocol FS PRN (06:15)
[2021-07-25] MEDS: Potassium Chloride 20 MEQ TAB PO SCH ×2 (06:24→09:28)
[2021-07-25] MEDS: Enoxaparin Sodium 40 MG/0.4 ML SYRINGE SC SCH (08:59)
[2021-07-25] MEDS: VANCOMYCIN 1.25 GM/250 ML BAG 1.25 GM in Premix Bag 1 BAG IVPB SCH ×2 (09:01→21:57)
[2021-07-25] MEDS ORDERED: Gabapentin 400 MG CAP PO SCH (11:15)
[2021-07-25 12:19] LABS: SARS-CoV-2 PCR by NAA Not Detected (NotDetected)
[2021-07-25] MEDS: Gabapentin 400 MG CAP PO SCH ×2 (15:11→20:34)
[2021-07-25 17:07] LABS: Potassium 3.5 mmol/L (3.5-5.1)
[2021-07-25] MEDS: HYDROcodone/Acetaminophen 10/325 mg Tablet PO SCH (20:36)
[2021-07-25] MEDS ORDERED: cefTRIAXone\\ROCEPHIN 1 GM in Sodium Chloride 0.9% 100 ML IVPB SCH (21:00)
[2021-07-25] MEDS ORDERED: Potassium Chloride 20 MEQ TAB PO SCH (21:15)
[2021-07-25] MEDS ORDERED: Vancomycin 1 GM in Premix Bag 1 BAG IVPB SCH (22:30)
[2021-07-26 04:45] LABS: #Basophils 0.1 thou/uL (0.0-0.2); #Eosinphils 0.3 thou/uL (0.0-0.7); #Lymphocytes 2.7 thou/uL (1.20-3.40); #Monocytes 0.8 thou/uL (0.11-0.59); #Neutrophils 2.8 thou/uL (1.40-6.50); %Eosinophils 4.7 % (0.0-10.0); %Lymphocytes 40.1 % (21.0-51.0); %Monocytes 12.3 % (0.0-10.0); %Neutrophils 41.9 % (42.0-75.0); Hemoglobin 12.6 g/dL (14.0-18.0); Mean Corpuscular Volume 97.1 fL (78.0-98.0); Mean Platelet Volume 8.3 fL (7.4-10.4); Platelet Count 116 thou/uL (130-400); RBC Distribution Width 13.3 % (11.5-14.5); Red Blood Cell (RBC) Count 3.71 mill/uL (4.70-6.10); White Blood Cell (WBC) Count 6.7 thou/uL (4.8-10.8)
[2021-07-26 04:56] LABS: Anion Gap 11 mmol/L (10-20); BUN (Urea Nitrogen) 6 mg/dL (8.4-25.7); Calc. Creatinine Clearance 117 mL/min (70-130); Calcium 8.3 mg/dL (7.8-10.44); Carbon Dioxide 27 mmol/L (23-31); Chloride 108 mmol/L (98-107); Glucose 82 mg/dL (80-115); Potassium 3.9 mmol/L (3.5-5.1); Sodium 142 mmol/L (136-145)
[2021-07-26 04:58] LABS: ALT (SGPT) 41 U/L (8-55); AST (SGOT) 125 U/L (5-34); Albumin 2.2 g/dL (3.4-4.8); Alkaline Phosphatase 76 U/L (40-110); Bilirubin, Direct 1.6 mg/dL (0.1-0.3); CRP (Inflammatory) 1.61 mg/dL (= or < 0.5); Protein, Total 7.5 g/dL (5.8-8.1)
[2021-07-26] MEDS: Amitriptyline HCl 25 MG TAB PO SCH (08:05)
[2021-07-26] MEDS: Gabapentin 400 MG CAP PO SCH ×3 (08:05→20:42)
[2021-07-26] MEDS: Carvedilol 6.25 MG TAB PO SCH (08:06)
[2021-07-26] MEDS: HYDROcodone/Acetaminophen 10/325 mg Tablet PO SCH ×3 (08:06→20:41)
[2021-07-26] MEDS: Enoxaparin Sodium 40 MG/0.4 ML SYRINGE SC SCH (08:07)
[2021-07-26 08:33] LABS: Vancomycin, Trough 15.8 ug/mL
[2021-07-26] MEDS: VANCOMYCIN 1.25 GM/250 ML BAG 1.25 GM in Premix Bag 1 BAG IVPB SCH (09:12)
[2021-07-26] MEDS: HYDROcodone/Acetaminophen 7.5/325 mg Tablet PO PRN (12:19)
[2021-07-27] MEDS: HYDROcodone/Acetaminophen 7.5/325 mg Tablet PO PRN ×2 (00:40→06:21)
[2021-07-27] MEDS: Gabapentin 400 MG CAP PO SCH ×2 (08:15→18:47)
[2021-07-27] MEDS: Carvedilol 6.25 MG TAB PO SCH (08:15)
[2021-07-27] MEDS: Enoxaparin Sodium 40 MG/0.4 ML SYRINGE SC SCH (08:16)
[2021-07-27] MEDS: Amitriptyline HCl 25 MG TAB PO SCH (08:16)
[2021-07-27 12:00] VITALS: BP 152/80; TEMP 98.2
[2021-07-27] MEDS: HYDROcodone/Acetaminophen 10/325 mg Tablet PO SCH ×2 (12:00→18:48)
== END 2021-07-27 18:20 | disposition home or self-care (01) | DRG 948 ==
LOC: ERS 15:57 → 2NO 20:45 → OBSVTOIN 07-26 09:58
PROVIDERS: ADMIT Student in an Organized Health Care Education/Training Program; ATTEND Internal Medicine
DX: R53.1 Weakness (principal); R29.6 Repeated falls; Z20.822 Contact with and (suspected) exposure to COVID-19; R30.0 Dysuria; S81.802A Unspecified open wound, left lower leg, initial encounter; S81.801A Unspecified open wound, right lower leg, initial encounter; X58.XXXA Exposure to other specified factors, initial encounter; E87.6 Hypokalemia; I70.292 Other atherosclerosis of native arteries of extremities, left leg; K21.9 Gastro-esophageal reflux disease without esophagitis; B18.2 Chronic viral hepatitis C; I10 Essential (primary) hypertension; E78.5 Hyperlipidemia, unspecified; G89.29 Other chronic pain; D64.9 Anemia, unspecified; E11.51 Type 2 diabetes mellitus with diabetic peripheral angiopathy without gangrene; Z90.49 Acquired absence of other specified parts of digestive tract; Z83.3 Family history of diabetes mellitus; Z82.49 Family history of ischemic heart disease and other diseases of the circulatory system; Z79.4 Long term (current) use of insulin; Z79.899 Other long term (current) drug therapy
CPT/HCPCS: 36415; 36416; 70450; 71045; 71275; 72146; 72158; 80048; 80053; 80076; 80202; 81003; 81015; 82805; 83036; 83605; 83690; 83735; 84484; 85025; 85652; 86140; 87040; 87086; 93005; 93306; 96365; 96372; 96375; 96376; A9579; G0378; J0696; J1650; J3370; J3490; J7050; Q9967; U0003; U0005

== ENCOUNTER 2021-08-19 12:40 | Inpatient (IN) | payer MEDICARE, MEDICAID ==
[2021-08-19] MEDS ORDERED: cloNIDine 0.1 MG TAB ONE (14:27)
[2021-08-19 15:07] LABS: Mean Corpuscular Hemoglobin 33.1 pg (27.0-31.0); Mean Corpuscular Volume 97.4 fL (78.0-98.0); Mean Platelet Volume 8.5 fL (7.4-10.4); Platelet Count 108 thou/uL (130-400); RBC Distribution Width 13.9 % (11.5-14.5); Red Blood Cell (RBC) Count 3.93 mill/uL (4.70-6.10); White Blood Cell (WBC) Count 5.3 thou/uL (4.8-10.8)
[2021-08-19 15:23] LABS: ALT (SGPT) 35 U/L (8-55); AST (SGOT) 68 U/L (5-34); Albumin 2.7 g/dL (3.4-4.8); Alkaline Phosphatase 96 U/L (40-110); Anion Gap 13 mmol/L (10-20); BUN (Urea Nitrogen) 6 mg/dL (8.4-25.7); Calc. Creatinine Clearance 0 mL/min (70-130); Calcium 8.6 mg/dL (7.8-10.44); Carbon Dioxide 26 mmol/L (23-31); Chloride 104 mmol/L (98-107); Globulin 6.4 g/dL (2.4-3.5); Glucose 171 mg/dL (80-115); Protein, Total 9.1 g/dL (5.8-8.1); Sodium 140 mmol/L (136-145)
[2021-08-19 15:27] LABS: Bilirubin Negative (Negative); Blood, Urine Negative (Negative); Clarity Clear (Clear); Glucose, Urine (Dipstick) Normal (Negative); Ketone, Urine Negative (Negative); Leukocyte Negative Leu/uL (Negative); Nitrite Negative (Negative); Protein, Urine (Dipstick) Negative (Neg-Trace); Specific Gravity, Urine 1.016 (1.002-1.036); Urobilinogen Greater than 12 mg/dL (Less than 2); pH, Urine 6.5 (5.0-9.0)
[2021-08-19 15:30] LABS: Eosinophils 6 % (0-10); Lymphocytes 48 % (21-51); MDiff Complete? YES; Monocytes 13 % (0-10); Neutrophil 30 % (42-75); Platelet Morphology Comment Appears Decreased; RBC Morphology Normal; Reactive Lymphocytes 3 % (0-10)
[2021-08-19] MEDS ORDERED: Potassium Chloride 20 MEQ TAB ONE (15:34)
[2021-08-19] MEDS ORDERED: HumaLOG 300 UNITS/3 ML VIAL SC PRN ×2 (18:05)
[2021-08-19] MEDS ORDERED: Dextrose 5% in Water 1,000 ML IV PRN (18:05)
[2021-08-19] MEDS ORDERED: Dextrose 50% Abboject 50 ML SYRINGE SLOW IVP PRN (18:05)
[2021-08-19 18:35] LABS: INR-International Normal Ratio 1.4; Prothrombin Time 17.2 sec (12.0-14.7)
[2021-08-19] MEDS ORDERED: hydrALAZINE 25 MG TAB PO PRN (18:37)
[2021-08-19] MEDS ORDERED: Potassium Chloride 20 MEQ TAB PO SCH (18:45)
[2021-08-19] MEDS: Heparin 5,000 UNITS/ML VIAL SC SCH (22:39)
[2021-08-19] MEDS: Gabapentin 400 MG CAP PO SCH (22:40)
[2021-08-19] MEDS: HYDROcodone/Acetaminophen 10/325 mg Tablet PO PRN (22:40)
[2021-08-20 04:57] LABS: Hemoglobin 11.5 g/dL (14.0-18.0); Mean Corpuscular HGB CONC 33.7 g/dL (32.0-36.0); Mean Corpuscular Hemoglobin 32.9 pg (27.0-31.0); Mean Corpuscular Volume 97.7 fL (78.0-98.0); Platelet Count 99 thou/uL (130-400); RBC Distribution Width 13.7 % (11.5-14.5); White Blood Cell (WBC) Count 5.1 thou/uL (4.8-10.8)
[2021-08-20 05:13] LABS: Anion Gap 7 mmol/L (10-20); BUN (Urea Nitrogen) 4 mg/dL (8.4-25.7); Calc. Creatinine Clearance 108 mL/min (70-130); Calcium 8.2 mg/dL (7.8-10.44); Carbon Dioxide 28 mmol/L (23-31); Cardiac Risk 4.2 (Less than 4.5); Chloride 111 mmol/L (98-107); Cholesterol 104 mg/dl (< 200 Desired); Glucose 130 mg/dL (80-115); HDL Cholesterol 25 mg/dL (>60 Neg Risk); LDL Cholesterol, Calculated 65 mg/dL; Potassium 3.5 mmol/L (3.5-5.1); Sodium 142 mmol/L (136-145); Triglycerides 68 mg/dL (Less than 150)
[2021-08-20 06:49] LABS: Eosinophils 2 % (0-10); Lymphocytes 39 % (21-51); MDiff Complete? YES; Monocytes 10 % (0-10); Neutrophil 49 % (42-75); Platelet Morphology Comment Appears Decreased
[2021-08-20] MEDS ORDERED: Amitriptyline HCl 25 MG TAB PO SCH (09:00)
[2021-08-20] MEDS ORDERED: FLU VACC QS2021-22(65YR UP)/PF 240 MCG/0.7 ML SYRINGE IM ONE (09:00)
[2021-08-20] MEDS ORDERED: Carvedilol 6.25 MG TAB PO SCH (09:00)
[2021-08-20] MEDS: Heparin 5,000 UNITS/ML VIAL SC SCH ×2 (09:42→22:02)
[2021-08-20] MEDS: Gabapentin 400 MG CAP PO SCH ×3 (09:43→21:17)
[2021-08-20 14:13] LABS: SARS-CoV-2 PCR by NAA Not Detected (NotDetected)
[2021-08-20] MEDS: HYDROcodone/Acetaminophen 10/325 mg Tablet PO PRN (15:45)
[2021-08-20] MEDS: Amitriptyline HCl 25 MG TAB PO SCH (21:17)
[2021-08-20] MEDS: Carvedilol 6.25 MG TAB PO SCH (21:17)
[2021-08-21] MEDS: Acetaminophen 325 MG TAB PO PRN ×2 (09:25→14:38)
[2021-08-21] MEDS: Gabapentin 400 MG CAP PO SCH ×3 (09:26→20:33)
[2021-08-21] MEDS: Carvedilol 6.25 MG TAB PO SCH (09:26)
[2021-08-21] MEDS: Heparin 5,000 UNITS/ML VIAL SC SCH ×2 (09:27→20:35)
[2021-08-21] MEDS: levETIRAcetam 500 MG TAB PO SCH ×2 (09:27→20:35)
[2021-08-21] MEDS ORDERED: NS 0.9% w/ 20 MEQ KCL 1,000 ML/1,000 ML BAG IV SCH ×2 (12:30→17:41)
[2021-08-21 13:44] LABS: Lactic Acid 2.2 mmol/L (0.5-2.2)
[2021-08-21 13:47] LABS: ALT (SGPT) 33 U/L (8-55); AST (SGOT) 70 U/L (5-34); Albumin 2.5 g/dL (3.4-4.8); Alkaline Phosphatase 94 U/L (40-110); Anion Gap 11 mmol/L (10-20); BUN (Urea Nitrogen) 6 mg/dL (8.4-25.7); Bilirubin, Total 2.7 mg/dL (0.2-1.2); CRP (Inflammatory) Less than 0.50 mg/dL (= or < 0.5); Calc. Creatinine Clearance 84 mL/min (70-130); Calcium 8.6 mg/dL (7.8-10.44); Carbon Dioxide 24 mmol/L (23-31); Chloride 107 mmol/L (98-107); Globulin 6.2 g/dL (2.4-3.5); Glucose 89 mg/dL (80-115); Potassium 3.6 mmol/L (3.5-5.1); Protein, Total 8.7 g/dL (5.8-8.1); Sodium 138 mmol/L (136-145)
[2021-08-21 14:05] LABS: Band 41 % (5-11); Eosinophils 1 % (0-10); Hemoglobin 13.8 g/dL (14.0-18.0); Lymphocytes 12 % (21-51); MDiff Complete? YES; Macrocytosis SLIGHT = 6-15 cells (100X) (0-5/hpf); Mean Corpuscular HGB CONC 34.2 g/dL (32.0-36.0); Mean Corpuscular Hemoglobin 33.9 pg (27.0-31.0); Mean Corpuscular Volume 99.1 fL (78.0-98.0); Mean Platelet Volume 7.9 fL (7.4-10.4); Monocytes 3 % (0-10); Neutrophil 42 % (42-75); Platelet Count 93 thou/uL (130-400); Platelet Morphology Comment Appears Decreased; RBC Distribution Width 14.2 % (11.5-14.5); Reactive Lymphocytes 1 % (0-10); Red Blood Cell (RBC) Count 4.08 mill/uL (4.70-6.10); White Blood Cell (WBC) Count 3.9 thou/uL (4.8-10.8)
[2021-08-21] MEDS ORDERED: Vancomycin 1 GM in Premix Bag 1 BAG IVPB SCH ×2 (14:44→21:00)
[2021-08-21] MEDS ORDERED: Cefepime 1 GM in Sodium Chloride 0.9% 100 ML IVPB SCH ×2 (14:44→21:00)
[2021-08-21] MEDS ORDERED: Acetaminophen 325 MG TAB PO SCH (15:00)
[2021-08-21] MEDS ORDERED: Vancomycin 1.5 GRAM/300 ML BAG 1.5 GM in Premix Bag 1 BAG IVPB SCH (15:15)
[2021-08-21] MEDS: Cefepime 2 GM in Sodium Chloride 0.9% 100 ML IVPB SCH (16:30)
[2021-08-21 16:35] LABS: Bilirubin Negative (Negative); Blood, Urine Trace (Negative); Clarity Clear (Clear); Glucose, Urine (Dipstick) Normal (Negative); Ketone, Urine Negative (Negative); Leukocyte Negative Leu/uL (Negative); Nitrite 1+ (Negative); Protein, Urine (Dipstick) Negative (Neg-Trace); RBC/HPF 0-3 HPF (0-3); Specific Gravity, Urine 1.013 (1.002-1.036); Squamous Epithelial 0-3 HPF (0-3); Urobilinogen 12 mg/dL (Less than 2); WBC/HPF 0-3 HPF (0-3); pH, Urine 7.5 (5.0-9.0)
[2021-08-21 16:37] LABS: Bacteria/HPF 1+ HPF (None Seen)
[2021-08-21 16:38] LABS: Urine Culture Reflex Yes Yes
[2021-08-21] MEDS: HYDROcodone/Acetaminophen 10/325 mg Tablet PO PRN (17:07)
[2021-08-21] MEDS ORDERED: Ketorolac Tromethamine 30 MG/ML VIAL IVP SCH (17:45)
[2021-08-21] MEDS ORDERED: Sodium Chloride 0.9% 1,000 ML IV SCH (20:30)
[2021-08-21] MEDS: Amitriptyline HCl 25 MG TAB PO SCH (20:34)
[2021-08-22] MEDS: Cefepime 2 GM in Sodium Chloride 0.9% 100 ML IVPB SCH ×2 (00:41→10:13)
[2021-08-22] MEDS: VANCOMYCIN 1.25 GM/250 ML BAG 1.25 GM in Premix Bag 1 BAG IVPB SCH ×2 (03:05→16:48)
[2021-08-22 05:18] LABS: Band 21 % (5-11); Hemoglobin 11.5 g/dL (14.0-18.0); Hypochromia SLIGHT = 6-15 cells (100X) (0-5/hpf); Lymphocytes 14 % (21-51); MDiff Complete? YES; Mean Corpuscular HGB CONC 34.5 g/dL (32.0-36.0); Mean Corpuscular Hemoglobin 33.7 pg (27.0-31.0); Mean Corpuscular Volume 97.8 fL (78.0-98.0); Mean Platelet Volume 8.3 fL (7.4-10.4); Monocytes 7 % (0-10); Neutrophil 58 % (42-75); Platelet Count 79 thou/uL (130-400); Platelet Morphology Comment Appears Decreased; RBC Distribution Width 14.1 % (11.5-14.5); Red Blood Cell (RBC) Count 3.41 mill/uL (4.70-6.10); White Blood Cell (WBC) Count 17.1 thou/uL (4.8-10.8)
[2021-08-22 05:30] LABS: ALT (SGPT) 29 U/L (8-55); AST (SGOT) 61 U/L (5-34); Albumin 1.9 g/dL (3.4-4.8); Alkaline Phosphatase 69 U/L (40-110); Anion Gap 10 mmol/L (10-20); BUN (Urea Nitrogen) 9 mg/dL (8.4-25.7); Bilirubin, Total 2.2 mg/dL (0.2-1.2); Calc. Creatinine Clearance 69 mL/min (70-130); Calcium 7.4 mg/dL (7.8-10.44); Carbon Dioxide 21 mmol/L (23-31); Chloride 110 mmol/L (98-107); Globulin 4.8 g/dL (2.4-3.5); Glucose 91 mg/dL (80-115); Potassium 3.8 mmol/L (3.5-5.1); Protein, Total 6.7 g/dL (5.8-8.1); Sodium 137 mmol/L (136-145)
[2021-08-22] MEDS: levETIRAcetam 500 MG TAB PO SCH ×2 (09:53→20:43)
[2021-08-22] MEDS: Gabapentin 400 MG CAP PO SCH ×3 (09:53→20:43)
[2021-08-22] MEDS: Heparin 5,000 UNITS/ML VIAL SC SCH ×2 (09:53→20:45)
[2021-08-22] MEDS ORDERED: Iopamidol-370 76% 500 ML 1 ML ONE (09:53)
[2021-08-22] MEDS: AMPicillin 2 GM in Sodium Chloride 0.9% 100 ML IVPB SCH ×2 (18:34→23:35)
[2021-08-22] MEDS: Amitriptyline HCl 25 MG TAB PO SCH (20:43)
[2021-08-22] MEDS: HYDROcodone/Acetaminophen 10/325 mg Tablet PO PRN (20:44)
[2021-08-23 05:21] LABS: #Basophils 0.1 thou/uL (0.0-0.2); #Eosinphils 0.3 thou/uL (0.0-0.7); #Lymphocytes 3.2 thou/uL (1.20-3.40); #Monocytes 1.5 thou/uL (0.11-0.59); #Neutrophils 9.2 thou/uL (1.40-6.50); %Basophils 0.6 % (0.0-1.0); %Eosinophils 1.8 % (0.0-10.0); %Lymphocytes 22.6 % (21.0-51.0); %Monocytes 10.5 % (0.0-10.0); %Neutrophils 64.6 % (42.0-75.0); Hemoglobin 11.5 g/dL (14.0-18.0); Mean Corpuscular HGB CONC 33.8 g/dL (32.0-36.0); Mean Corpuscular Hemoglobin 33.2 pg (27.0-31.0); Mean Corpuscular Volume 98.4 fL (78.0-98.0); Mean Platelet Volume 8.4 fL (7.4-10.4); Platelet Count 83 thou/uL (130-400); RBC Distribution Width 14.3 % (11.5-14.5); Red Blood Cell (RBC) Count 3.47 mill/uL (4.70-6.10); White Blood Cell (WBC) Count 14.2 thou/uL (4.8-10.8)
[2021-08-23] MEDS: AMPicillin 2 GM in Sodium Chloride 0.9% 100 ML IVPB SCH ×4 (05:26→23:47)
[2021-08-23 05:36] LABS: Anion Gap 9 mmol/L (10-20); BUN (Urea Nitrogen) 11 mg/dL (8.4-25.7); Calc. Creatinine Clearance 86 mL/min (70-130); Carbon Dioxide 24 mmol/L (23-31); Chloride 111 mmol/L (98-107); Glucose 89 mg/dL (80-115); Potassium 3.2 mmol/L (3.5-5.1); Sodium 141 mmol/L (136-145)
[2021-08-23] MEDS: Gabapentin 400 MG CAP PO SCH ×3 (09:57→20:46)
[2021-08-23] MEDS: levETIRAcetam 500 MG TAB PO SCH ×2 (09:58→20:47)
[2021-08-23] MEDS: HYDROcodone/Acetaminophen 10/325 mg Tablet PO PRN ×3 (09:58→20:47)
[2021-08-23] MEDS: Heparin 5,000 UNITS/ML VIAL SC SCH ×2 (09:58→20:47)
[2021-08-23] MEDS: Amitriptyline HCl 25 MG TAB PO SCH (20:47)
[2021-08-24] MEDS: AMPicillin 2 GM in Sodium Chloride 0.9% 100 ML IVPB SCH ×3 (05:07→17:23)
[2021-08-24 05:11] LABS: #Eosinphils 0.2 thou/uL (0.0-0.7); #Lymphocytes 2.6 thou/uL (1.20-3.40); #Monocytes 0.7 thou/uL (0.11-0.59); %Basophils 0.7 % (0.0-1.0); %Eosinophils 2.5 % (0.0-10.0); %Lymphocytes 33.9 % (21.0-51.0); %Monocytes 9.8 % (0.0-10.0); %Neutrophils 53.3 % (42.0-75.0); Hemoglobin 10.7 g/dL (14.0-18.0); Mean Corpuscular Hemoglobin 33.7 pg (27.0-31.0); Mean Corpuscular Volume 99.1 fL (78.0-98.0); Mean Platelet Volume 8.3 fL (7.4-10.4); Platelet Count 81 thou/uL (130-400); RBC Distribution Width 14.4 % (11.5-14.5); Red Blood Cell (RBC) Count 3.19 mill/uL (4.70-6.10); White Blood Cell (WBC) Count 7.6 thou/uL (4.8-10.8)
[2021-08-24 05:22] LABS: ALT (SGPT) 28 U/L (8-55); AST (SGOT) 54 U/L (5-34); Albumin 1.8 g/dL (3.4-4.8); Alkaline Phosphatase 76 U/L (40-110); Anion Gap 8 mmol/L (10-20); BUN (Urea Nitrogen) 9 mg/dL (8.4-25.7); Bilirubin, Total 1.6 mg/dL (0.2-1.2); Calc. Creatinine Clearance 99 mL/min (70-130); Calcium 7.8 mg/dL (7.8-10.44); Carbon Dioxide 24 mmol/L (23-31); Chloride 110 mmol/L (98-107); Globulin 4.9 g/dL (2.4-3.5); Glucose 108 mg/dL (80-115); Potassium 3.2 mmol/L (3.5-5.1); Protein, Total 6.7 g/dL (5.8-8.1); Sodium 139 mmol/L (136-145)
[2021-08-24] MEDS: Gabapentin 400 MG CAP PO SCH ×3 (09:30→21:08)
[2021-08-24] MEDS: Heparin 5,000 UNITS/ML VIAL SC SCH ×2 (09:30→21:09)
[2021-08-24] MEDS: HYDROcodone/Acetaminophen 10/325 mg Tablet PO PRN ×3 (09:31→21:09)
[2021-08-24] MEDS: levETIRAcetam 500 MG TAB PO SCH ×2 (09:31→21:08)
[2021-08-24] MEDS ORDERED: Potassium Chloride 20 MEQ TAB PO SCH (11:00)
[2021-08-24] MEDS: Potassium Chloride 20 MEQ TAB PO SCH (17:23)
[2021-08-24] MEDS: Amitriptyline HCl 25 MG TAB PO SCH (21:08)
[2021-08-25] MEDS: AMPicillin 2 GM in Sodium Chloride 0.9% 100 ML IVPB SCH ×4 (02:24→17:51)
[2021-08-25 05:42] LABS: Anion Gap 10 mmol/L (10-20); BUN (Urea Nitrogen) 6 mg/dL (8.4-25.7); Calc. Creatinine Clearance 104 mL/min (70-130); Calcium 7.9 mg/dL (7.8-10.44); Carbon Dioxide 23 mmol/L (23-31); Chloride 112 mmol/L (98-107); Glucose 90 mg/dL (80-115); Potassium 3.9 mmol/L (3.5-5.1); Sodium 141 mmol/L (136-145)
[2021-08-25] MEDS: Potassium Chloride 20 MEQ TAB PO SCH ×2 (09:42→16:26)
[2021-08-25] MEDS: HYDROcodone/Acetaminophen 10/325 mg Tablet PO PRN ×3 (09:43→20:38)
[2021-08-25] MEDS: Gabapentin 400 MG CAP PO SCH ×3 (09:43→20:37)
[2021-08-25] MEDS: levETIRAcetam 500 MG TAB PO SCH ×2 (09:43→20:38)
[2021-08-25] MEDS: Heparin 5,000 UNITS/ML VIAL SC SCH ×2 (09:43→20:38)
[2021-08-25] MEDS: Amitriptyline HCl 25 MG TAB PO SCH (20:37)
[2021-08-26] MEDS: AMPicillin 2 GM in Sodium Chloride 0.9% 100 ML IVPB SCH ×5 (00:29→23:46)
[2021-08-26] MEDS: HYDROcodone/Acetaminophen 10/325 mg Tablet PO PRN ×4 (03:20→20:14)
[2021-08-26] MEDS: Heparin 5,000 UNITS/ML VIAL SC SCH ×2 (09:57→20:11)
[2021-08-26] MEDS: Gabapentin 400 MG CAP PO SCH ×3 (09:57→20:09)
[2021-08-26] MEDS: levETIRAcetam 500 MG TAB PO SCH ×2 (09:58→20:10)
[2021-08-26] MEDS: Potassium Chloride 20 MEQ TAB PO SCH (09:59)
[2021-08-26] MEDS: Acetaminophen 325 MG TAB PO PRN (12:53)
[2021-08-26] MEDS ORDERED: Senokot S 8.6-50 MG TAB PO SCH (15:45)
[2021-08-26] MEDS: Amitriptyline HCl 25 MG TAB PO SCH (20:10)
[2021-08-26] MEDS: Senokot S 8.6-50 MG TAB PO SCH (20:10)
[2021-08-27] MEDS: AMPicillin 2 GM in Sodium Chloride 0.9% 100 ML IVPB SCH ×3 (05:00→17:43)
[2021-08-27] MEDS: Gabapentin 400 MG CAP PO SCH ×3 (08:27→20:03)
[2021-08-27] MEDS: levETIRAcetam 500 MG TAB PO SCH ×2 (08:27→20:04)
[2021-08-27] MEDS: Potassium Chloride 20 MEQ TAB PO SCH (08:27)
[2021-08-27] MEDS: Senokot S 8.6-50 MG TAB PO SCH ×2 (08:28→20:04)
[2021-08-27] MEDS: Heparin 5,000 UNITS/ML VIAL SC SCH ×2 (08:28→20:04)
[2021-08-27] MEDS: HYDROcodone/Acetaminophen 10/325 mg Tablet PO PRN ×3 (08:30→20:04)
[2021-08-27] MEDS: Carvedilol 6.25 MG TAB PO SCH ×2 (10:00→17:43)
[2021-08-27] MEDS: AMOXicillin 250 MG CAP PO SCH (20:02)
[2021-08-27] MEDS: Amitriptyline HCl 25 MG TAB PO SCH (20:04)
[2021-08-27 21:39] LABS: SARS-CoV-2 PCR by NAA Not Detected (NotDetected)
[2021-08-28] MEDS: HYDROcodone/Acetaminophen 10/325 mg Tablet PO PRN ×3 (01:10→14:31)
[2021-08-28 08:20] VITALS: BP 144/72; TEMP 97.9
[2021-08-28] MEDS: Potassium Chloride 20 MEQ TAB PO SCH (08:39)
[2021-08-28] MEDS: Gabapentin 400 MG CAP PO SCH ×2 (08:43→14:31)
[2021-08-28] MEDS: Senokot S 8.6-50 MG TAB PO SCH (08:44)
[2021-08-28] MEDS: levETIRAcetam 500 MG TAB PO SCH (08:44)
[2021-08-28] MEDS: Heparin 5,000 UNITS/ML VIAL SC SCH (08:44)
[2021-08-28] MEDS: AMOXicillin 250 MG CAP PO SCH ×2 (09:08→14:31)
[2021-08-28] MEDS: Carvedilol 6.25 MG TAB PO SCH (09:09)
[2021-08-28 11:24] VITALS: BMI 24.4
== END 2021-08-28 15:50 | DRG 552 ==
LOC: ERS 12:40 → 2NO 16:12 → OBSVTOIN 08-20 17:05 → T4-B 08-26 19:26
PROVIDERS: ADMIT Internal Medicine; ATTEND Family Medicine
DX: M48.02 Spinal stenosis, cervical region (principal); N39.0 Urinary tract infection, site not specified; R78.81 Bacteremia; Z20.822 Contact with and (suspected) exposure to COVID-19; I10 Essential (primary) hypertension; E11.9 Type 2 diabetes mellitus without complications; E78.5 Hyperlipidemia, unspecified; G89.29 Other chronic pain; K21.9 Gastro-esophageal reflux disease without esophagitis; M47.816 Spondylosis without myelopathy or radiculopathy, lumbar region; M47.812 Spondylosis without myelopathy or radiculopathy, cervical region; I87.2 Venous insufficiency (chronic) (peripheral); B18.2 Chronic viral hepatitis C; R29.6 Repeated falls; M50.30 Other cervical disc degeneration, unspecified cervical region; E87.6 Hypokalemia; B95.2 Enterococcus as the cause of diseases classified elsewhere; Z83.3 Family history of diabetes mellitus; Z28.9 Immunization not carried out for unspecified reason; Z79.899 Other long term (current) drug therapy; Z90.49 Acquired absence of other specified parts of digestive tract; Z82.49 Family history of ischemic heart disease and other diseases of the circulatory system; Z86.19 Personal history of other infectious and parasitic diseases; Z91.81 History of falling
CPT/HCPCS: 36415; 36416; 51701; 70551; 71046; 72141; 74177; 80048; 80053; 80061; 81001; 81003; 82140; 83605; 83880; 84484; 85007; 85025; 85027; 85610; 85652; 86140; 87040; 87077; 87086; 87149; 87186; 93005; 93306; G0378; J0290; J0692; J1644; J1885; J3370; J3480; J3490; J7050; Q9967; U0003; U0005

== ENCOUNTER 2021-10-07 23:11 | Emergency (ER) | payer MEDICARE, MEDICAID ==
[2021-10-07 23:55] LABS: #Lymphocytes 1.2 thou/uL (1.20-3.40); #Monocytes 0.6 thou/uL (0.11-0.59); #Neutrophils 4.5 thou/uL (1.40-6.50); %Basophils 0.5 % (0.0-1.0); %Eosinophils 0.6 % (0.0-10.0); %Lymphocytes 19.4 % (21.0-51.0); %Monocytes 8.8 % (0.0-10.0); %Neutrophils 70.7 % (42.0-75.0); Hemoglobin 13.3 g/dL (14.0-18.0); Mean Corpuscular HGB CONC 35.8 g/dL (32.0-36.0); Mean Corpuscular Hemoglobin 35.2 pg (27.0-31.0); Mean Corpuscular Volume 98.2 fL (78.0-98.0); Platelet Count 109 thou/uL (130-400); RBC Distribution Width 14.3 % (11.5-14.5); Red Blood Cell (RBC) Count 3.77 mill/uL (4.70-6.10); White Blood Cell (WBC) Count 6.3 thou/uL (4.8-10.8)
[2021-10-08 00:14] LABS: ALT (SGPT) 38 U/L (8-55); AST (SGOT) 75 U/L (5-34); Albumin 2.6 g/dL (3.4-4.8); Alkaline Phosphatase 109 U/L (40-110); Anion Gap 16 mmol/L (10-20); BUN (Urea Nitrogen) 5 mg/dL (8.4-25.7); Bilirubin, Total 2.3 mg/dL (0.2-1.2); Calc. Creatinine Clearance 0 mL/min (70-130); Calcium 8.8 mg/dL (7.8-10.44); Carbon Dioxide 20 mmol/L (23-31); Chloride 105 mmol/L (98-107); Globulin 6.1 g/dL (2.4-3.5); Glucose 155 mg/dL (80-115); Lipase 116 U/L (8-78); Potassium 3.4 mmol/L (3.5-5.1); Protein, Total 8.7 g/dL (5.8-8.1); Sodium 138 mmol/L (136-145)
[2021-10-08 00:28] LABS: Bilirubin Negative (Negative); Blood, Urine Negative (Negative); Clarity Clear (Clear); Glucose, Urine (Dipstick) Normal (Negative); Ketone, Urine Negative (Negative); Leukocyte Negative Leu/uL (Negative); Nitrite Negative (Negative); Protein, Urine (Dipstick) Negative (Neg-Trace); Specific Gravity, Urine 1.013 (1.002-1.036); pH, Urine 6.5 (5.0-9.0)
[2021-10-08] MEDS ORDERED: Morphine 4 MG/ML VIAL ONE (00:34)
[2021-10-08] MEDS ORDERED: metroNIDAZOLE 250 MG TAB ONE (02:14)
[2021-10-08] MEDS ORDERED: Carvedilol 6.25 MG TAB PO SCH (04:00)
[2021-10-08] MEDS ORDERED: Metoprolol Tartrate 5 MG/5 ML VIAL ONE (04:59)
[2021-10-08] MEDS ORDERED: Iopamidol 370 76% 50 ML VIAL FS ONE (10:56)
[2021-10-08] MEDS ORDERED: Iopamidol-370 76% 500 ML 1 ML ONE (10:56)
== END 2021-10-08 08:20 | disposition home or self-care (01) ==
LOC: ERS 23:11
DX: K52.9 Noninfective gastroenteritis and colitis, unspecified (principal); E86.0 Dehydration; R11.2 Nausea with vomiting, unspecified; R00.0 Tachycardia, unspecified; I10 Essential (primary) hypertension; E11.9 Type 2 diabetes mellitus without complications; K21.9 Gastro-esophageal reflux disease without esophagitis; E78.5 Hyperlipidemia, unspecified; Z87.19 Personal history of other diseases of the digestive system; Z79.899 Other long term (current) drug therapy
CPT/HCPCS: 74177; 80053; 81003; 83690; 85025; 93005; 96374; 96375; J2270; Q9967

== ENCOUNTER 2021-10-16 08:02 | Emergency (ER) | payer MEDICARE, OTHER ==
[2021-10-16] MEDS ORDERED: Ondansetron PF 4 MG/2 ML Vial ONE (08:43)
[2021-10-16] MEDS ORDERED: Morphine 4 MG/ML VIAL ONE (08:43)
[2021-10-16 08:57] LABS: #Basophils 0.1 thou/uL (0.0-0.2); #Eosinphils 0.1 thou/uL (0.0-0.7); #Lymphocytes 1.3 thou/uL (1.20-3.40); #Monocytes 0.5 thou/uL (0.11-0.59); #Neutrophils 2.9 thou/uL (1.40-6.50); %Basophils 1.1 % (0.0-1.0); %Eosinophils 1.7 % (0.0-10.0); %Lymphocytes 27.1 % (21.0-51.0); %Monocytes 9.3 % (0.0-10.0); %Neutrophils 60.9 % (42.0-75.0); Hemoglobin 12.6 g/dL (14.0-18.0); Mean Corpuscular HGB CONC 32.8 g/dL (32.0-36.0); Mean Corpuscular Hemoglobin 32.5 pg (27.0-31.0); Mean Corpuscular Volume 98.9 fL (78.0-98.0); Platelet Count 114 thou/uL (130-400); RBC Distribution Width 14.4 % (11.5-14.5); Red Blood Cell (RBC) Count 3.87 mill/uL (4.70-6.10); White Blood Cell (WBC) Count 4.8 thou/uL (4.8-10.8)
[2021-10-16 09:14] LABS: ALT (SGPT) 34 U/L (8-55); AST (SGOT) 75 U/L (5-34); Albumin 2.6 g/dL (3.4-4.8); Alkaline Phosphatase 119 U/L (40-110); Anion Gap 14 mmol/L (10-20); BUN (Urea Nitrogen) 5 mg/dL (8.4-25.7); Bilirubin, Total 1.9 mg/dL (0.2-1.2); Calc. Creatinine Clearance 0 mL/min (70-130); Calcium 8.4 mg/dL (7.8-10.44); Carbon Dioxide 22 mmol/L (23-31); Chloride 107 mmol/L (98-107); Globulin 5.8 g/dL (2.4-3.5); Glucose 158 mg/dL (80-115); Lipase 93 U/L (8-78); Potassium 3.6 mmol/L (3.5-5.1); Protein, Total 8.4 g/dL (5.8-8.1); Sodium 139 mmol/L (136-145)
[2021-10-16 11:11] LABS: Bilirubin Negative (Negative); Blood, Urine Negative (Negative); Clarity Clear (Clear); Glucose, Urine (Dipstick) Normal (Negative); Ketone, Urine Negative (Negative); Leukocyte Negative Leu/uL (Negative); Nitrite Negative (Negative); Protein, Urine (Dipstick) Negative (Neg-Trace); Specific Gravity, Urine 1.011 (1.002-1.036)
[2021-10-16 11:52] LABS: Lactic Acid 1.5 mmol/L (0.5-2.2)
[2021-10-16] MEDS ORDERED: Iopamidol-370 76% 500 ML 1 ML ONE (16:22)
== END 2021-10-16 11:45 | disposition home or self-care (01) ==
LOC: ERS 08:02
DX: K52.9 Noninfective gastroenteritis and colitis, unspecified (principal); E11.9 Type 2 diabetes mellitus without complications; K21.9 Gastro-esophageal reflux disease without esophagitis; E78.5 Hyperlipidemia, unspecified; I10 Essential (primary) hypertension; Z79.899 Other long term (current) drug therapy
CPT/HCPCS: 36415; 74177; 80053; 81003; 83605; 83690; 84484; 85025; 93005; 96374; 96375; J2270; J2405; Q9967

== ENCOUNTER 2022-01-11 13:45 | Inpatient (IN) | payer MEDICARE, MEDICAID ==
[2022-01-11] MEDS ORDERED: Iopamidol-370 76% 500 ML 1 ML ONE (13:49)
[2022-01-11 15:13] LABS: Hemoglobin 13.3 g/dL (14.0-18.0); Mean Corpuscular HGB CONC 33.2 g/dL (32.0-36.0); Mean Corpuscular Hemoglobin 32.7 pg (27.0-31.0); Mean Corpuscular Volume 98.5 fL (78.0-98.0); Mean Platelet Volume 8.1 fL (7.4-10.4); Platelet Count 120 thou/uL (130-400); RBC Distribution Width 14.2 % (11.5-14.5); Red Blood Cell (RBC) Count 4.06 mill/uL (4.70-6.10); White Blood Cell (WBC) Count 17.8 thou/uL (4.8-10.8)
[2022-01-11] MEDS ORDERED: Morphine 4 MG/ML VIAL ONE ×2 (15:13→16:51)
[2022-01-11] MEDS ORDERED: Ondansetron PF 4 MG/2 ML Vial ONE (15:20)
[2022-01-11 15:27] LABS: Band 19 % (5-11); Lymphocytes 5 % (21-51); MDiff Complete? YES; Monocytes 7 % (0-10); Neutrophil 69 % (42-75); Platelet Morphology Comment Appears Decreased; Polychromasia SLIGHT = 2-3 cells (100X) (0-2/hpf); Vacuoles SLIGHT
[2022-01-11] MEDS ORDERED: Vancomycin 1 GM/200 ML BAG ONE (15:29)
[2022-01-11] MEDS ORDERED: Piperacillin/Tazobactam 4.5 GM VIAL ONE (15:30)
[2022-01-11 15:41] LABS: ALT (SGPT) 64 U/L (8-55); AST (SGOT) 267 U/L (5-34); Albumin 2.5 g/dL (3.4-4.8); Alkaline Phosphatase 82 U/L (40-110); Anion Gap 13 mmol/L (10-20); BUN (Urea Nitrogen) 11 mg/dL (8.4-25.7); Bilirubin, Total 3.1 mg/dL (0.2-1.2); Calc. Creatinine Clearance 0 mL/min (70-130); Calcium 8.1 mg/dL (7.8-10.44); Carbon Dioxide 22 mmol/L (23-31); Chloride 103 mmol/L (98-107); Globulin 6.1 g/dL (2.4-3.5); Glucose 109 mg/dL (80-115); Protein, Total 8.6 g/dL (5.8-8.1); Sodium 135 mmol/L (136-145)
[2022-01-11 15:48] LABS: Potassium 2.7 mmol/L (3.5-5.1)
[2022-01-11 16:02] LABS: CKMB 2.8 ng/mL (0-6.6)
[2022-01-11 16:12] LABS: Magnesium 1.8 mg/dL (1.6-2.6)
[2022-01-11] MEDS ORDERED: Magnesium 2 GM/50 ML BAG (IN WATER) ONE (16:37)
[2022-01-11] MEDS ORDERED: Potassium Chloride 20 MEQ TAB ONE (16:37)
[2022-01-11] MEDS ORDERED: Aspirin Chewable 81 MG TAB ONE (16:51)
[2022-01-11 17:02] LABS: Bilirubin Negative (Negative); Blood, Urine 2+ (Negative); Clarity Turbid (Clear); Glucose, Urine (Dipstick) Normal (Negative); Ketone, Urine Negative (Negative); Leukocyte 500 Leu/uL (Negative); Nitrite 2+ (Negative); Protein, Urine (Dipstick) 30 mg/dL (Neg-Trace); Squamous Epithelial 0-3 HPF (0-3); Urobilinogen Normal mg/dL (Less than 2); WBC/HPF Greater than 50 HPF (0-3)
[2022-01-11 17:05] LABS: Specific Gravity, Urine 1.049 (1.002-1.036)
[2022-01-11] MEDS ORDERED: Metoprolol Tartrate 5 MG/5 ML VIAL ONE (17:05)
[2022-01-11 17:06] LABS: Bacteria/HPF 2+ HPF (None Seen)
[2022-01-11 17:08] LABS: Amphetamine Not Detected (NotDetected); Barbiturates Screen Not Detected (NotDetected); Benzodiazepine Screen Not Detected (NotDetected); Cocaine Metabolite Screen Not Detected (NotDetected); Methadone Not Detected (NotDetected); Methamphetamine Not Detected (NotDetected); Opiate Screen Detected (NotDetected); Oxycodone Screen Not Detected (NotDetected); Phencyclidine (PCP) Not Detected (NotDetected); THC/Cannabinoid Screen Not Detected (NotDetected); Tricyclic Screen Detected (NotDetected)
[2022-01-11] MEDS ORDERED: Acetaminophen 650 MG Suppository PR PRN (17:14)
[2022-01-11] MEDS ORDERED: Ondansetron PF 4 MG/2 ML Vial IVP PRN (17:14)
[2022-01-11] MEDS ORDERED: Ondansetron ODT 4 MG TAB PO PRN (17:14)
[2022-01-11] MEDS ORDERED: Acetaminophen 325 MG TAB PO PRN (17:14)
[2022-01-11] MEDS ORDERED: Electrolyte Replacement Protocol 1 EACH FS ONE (17:33)
[2022-01-11] MEDS ORDERED: Metoprolol Tartrate 25 MG TAB PO SCH (17:45)
[2022-01-11] MEDS ORDERED: Potassium Chloride 20 MEQ TAB PO SCH ×3 (17:45→21:00)
[2022-01-11] MEDS ORDERED: Electrolyte Replacement Protocol FS PRN (17:45)
[2022-01-11] MEDS ORDERED: Piperacillin/Tazobactam 3.375 GM in Sodium Chloride 0.9% 100 ML IVPB SCH (18:00)
[2022-01-11 18:32] LABS: Lactic Acid 2.6 mmol/L (0.5-2.2)
[2022-01-11 18:40] LABS: Troponin I 0.071 ng/mL (< 0.028)
[2022-01-11] MEDS: Piperacillin/Tazobactam 3.375 GM in Sodium Chloride 0.9% 100 ML IVPB SCH (22:06)
[2022-01-11] MEDS: Vancomycin 25 MG/ML Oral SOLN PO SCH (22:07)
[2022-01-11] MEDS: Atorvastatin Calcium 40 MG TAB PO SCH (22:07)
[2022-01-11] MEDS: Metoprolol Tartrate 50 MG TAB PO SCH (22:08)
[2022-01-11 22:59] LABS: Troponin I 0.091 ng/mL (< 0.028)
[2022-01-12] MEDS: Piperacillin/Tazobactam 3.375 GM in Sodium Chloride 0.9% 100 ML IVPB SCH ×2 (03:31→11:37)
[2022-01-12] MEDS: Vancomycin 25 MG/ML Oral SOLN PO SCH ×4 (03:31→20:54)
[2022-01-12] MEDS: Enoxaparin Sodium 80 MG/0.8 ML SYRINGE SC SCH ×3 (03:33→20:55)
[2022-01-12 04:26] LABS: #Basophils 0.1 thou/uL (0.0-0.2); #Lymphocytes 1.9 thou/uL (1.20-3.40); #Monocytes 1.7 thou/uL (0.11-0.59); #Neutrophils 11.8 thou/uL (1.40-6.50); %Basophils 0.4 % (0.0-1.0); %Eosinophils 0.2 % (0.0-10.0); %Lymphocytes 12.5 % (21.0-51.0); %Monocytes 10.9 % (0.0-10.0); %Neutrophils 76.1 % (42.0-75.0); Hemoglobin 12.2 g/dL (14.0-18.0); Mean Corpuscular HGB CONC 32.5 g/dL (32.0-36.0); Mean Corpuscular Hemoglobin 32.1 pg (27.0-31.0); Mean Corpuscular Volume 98.9 fL (78.0-98.0); Mean Platelet Volume 8.4 fL (7.4-10.4); Platelet Count 114 thou/uL (130-400); Red Blood Cell (RBC) Count 3.79 mill/uL (4.70-6.10); White Blood Cell (WBC) Count 15.5 thou/uL (4.8-10.8)
[2022-01-12 04:36] LABS: ALT (SGPT) 64 U/L (8-55); AST (SGOT) 254 U/L (5-34); Albumin 2.1 g/dL (3.4-4.8); Alkaline Phosphatase 79 U/L (40-110); Anion Gap 12 mmol/L (10-20); BUN (Urea Nitrogen) 9 mg/dL (8.4-25.7); Bilirubin, Total 2.1 mg/dL (0.2-1.2); Calc. Creatinine Clearance 90 mL/min (70-130); Calcium 7.5 mg/dL (7.8-10.44); Carbon Dioxide 20 mmol/L (23-31); Chloride 109 mmol/L (98-107); Glucose 83 mg/dL (80-115); Protein, Total 7.1 g/dL (5.8-8.1); Sodium 138 mmol/L (136-145)
[2022-01-12] MEDS ORDERED: Magnesium 2 GM/50 ML(in water) 2 GM in Premix Bag 1 BAG IVPB SCH (06:30)
[2022-01-12] MEDS ORDERED: Carvedilol 6.25 MG TAB PO SCH (08:00)
[2022-01-12] MEDS ORDERED: Potassium Chloride 20 MEQ TAB PO SCH (08:00)
[2022-01-12] MEDS ORDERED: Enoxaparin Sodium 40 MG/0.4 ML SYRINGE SC SCH (09:00)
[2022-01-12] MEDS: Aspirin 325 mg Enteric Coated Tablet PO SCH (10:23)
[2022-01-12] MEDS: Metoprolol Tartrate 50 MG TAB PO SCH ×2 (10:23→20:55)
[2022-01-12] MEDS: PHOS-NAK 1 PKT PACK PO SCH ×2 (10:24→11:38)
[2022-01-12] MEDS: Morphine 2 MG/ML VIAL SLOW IVP PRN ×3 (11:37→20:55)
[2022-01-12 13:08] LABS: SARS-CoV-2 PCR by NAA Not Detected (NotDetected)
[2022-01-12] MEDS ORDERED: cefTRIAXone\\ROCEPHIN 1 GM in Sodium Chloride 0.9% 100 ML IVPB SCH (13:45)
[2022-01-12] MEDS: metroNIDAZOLE 250 MG in Admixture Fee 2 EACH IVPB SCH (18:40)
[2022-01-12] MEDS: Atorvastatin Calcium 40 MG TAB PO SCH (20:54)
[2022-01-13] MEDS: Morphine 2 MG/ML VIAL SLOW IVP PRN ×4 (00:31→21:27)
[2022-01-13] MEDS: Vancomycin 25 MG/ML Oral SOLN PO SCH ×5 (02:29→21:24)
[2022-01-13] MEDS: metroNIDAZOLE 250 MG in Admixture Fee 2 EACH IVPB SCH ×3 (02:52→18:14)
[2022-01-13 04:37] LABS: #Eosinphils 0.1 thou/uL (0.0-0.7); #Lymphocytes 2.3 thou/uL (1.20-3.40); #Monocytes 1.2 thou/uL (0.11-0.59); #Neutrophils 7.9 thou/uL (1.40-6.50); %Basophils 0.2 % (0.0-1.0); %Lymphocytes 19.9 % (21.0-51.0); %Monocytes 10.4 % (0.0-10.0); %Neutrophils 68.6 % (42.0-75.0); Hemoglobin 12.7 g/dL (14.0-18.0); Mean Corpuscular HGB CONC 32.5 g/dL (32.0-36.0); Mean Corpuscular Hemoglobin 32.2 pg (27.0-31.0); Mean Platelet Volume 7.9 fL (7.4-10.4); Platelet Count 135 thou/uL (130-400); RBC Distribution Width 14.2 % (11.5-14.5); Red Blood Cell (RBC) Count 3.95 mill/uL (4.70-6.10); White Blood Cell (WBC) Count 11.5 thou/uL (4.8-10.8)
[2022-01-13 05:06] LABS: ALT (SGPT) 78 U/L (8-55); AST (SGOT) 271 U/L (5-34); Albumin 2.2 g/dL (3.4-4.8); Alkaline Phosphatase 79 U/L (40-110); Anion Gap 10 mmol/L (10-20); BUN (Urea Nitrogen) 8 mg/dL (8.4-25.7); Calc. Creatinine Clearance 95 mL/min (70-130); Calcium 7.7 mg/dL (7.8-10.44); Carbon Dioxide 24 mmol/L (23-31); Chloride 107 mmol/L (98-107); Globulin 5.4 g/dL (2.4-3.5); Glucose 87 mg/dL (80-115); Potassium 3.2 mmol/L (3.5-5.1); Protein, Total 7.6 g/dL (5.8-8.1); Sodium 138 mmol/L (136-145)
[2022-01-13] MEDS: Enoxaparin Sodium 80 MG/0.8 ML SYRINGE SC SCH ×2 (09:40→21:23)
[2022-01-13] MEDS: LACTINEX 1 TAB PO SCH (09:40)
[2022-01-13] MEDS: Aspirin 325 mg Enteric Coated Tablet PO SCH (09:40)
[2022-01-13] MEDS: Metoprolol Tartrate 50 MG TAB PO SCH ×2 (09:41→21:24)
[2022-01-13] MEDS ORDERED: Potassium Chloride 20 MEQ TAB PO SCH (12:00)
[2022-01-13] MEDS: HYDROcodone/Acetaminophen 10/325 mg Tablet PO PRN (19:18)
[2022-01-13] MEDS: Atorvastatin Calcium 40 MG TAB PO SCH (21:23)
[2022-01-13] MEDS: Ciprofloxacin 500 MG TAB PO SCH (21:24)
[2022-01-14] MEDS: HYDROcodone/Acetaminophen 10/325 mg Tablet PO PRN ×3 (00:45→16:49)
[2022-01-14] MEDS: metroNIDAZOLE 250 MG in Admixture Fee 2 EACH IVPB SCH ×3 (01:50→17:42)
[2022-01-14] MEDS: Vancomycin 25 MG/ML Oral SOLN PO SCH ×4 (01:50→20:33)
[2022-01-14] MEDS: Ciprofloxacin 500 MG TAB PO SCH ×2 (06:04→20:33)
[2022-01-14 06:51] LABS: #Eosinphils 0.2 thou/uL (0.0-0.7); #Lymphocytes 2.2 thou/uL (1.20-3.40); #Monocytes 1.2 thou/uL (0.11-0.59); #Neutrophils 4.5 thou/uL (1.40-6.50); %Basophils 0.5 % (0.0-1.0); %Lymphocytes 27.1 % (21.0-51.0); %Monocytes 14.2 % (0.0-10.0); %Neutrophils 55.2 % (42.0-75.0); Hemoglobin 13.2 g/dL (14.0-18.0); Mean Corpuscular HGB CONC 32.5 g/dL (32.0-36.0); Mean Corpuscular Hemoglobin 32.3 pg (27.0-31.0); Mean Corpuscular Volume 99.2 fL (78.0-98.0); Platelet Count 137 thou/uL (130-400); RBC Distribution Width 14.2 % (11.5-14.5); Red Blood Cell (RBC) Count 4.08 mill/uL (4.70-6.10); White Blood Cell (WBC) Count 8.1 thou/uL (4.8-10.8)
[2022-01-14 07:07] LABS: ALT (SGPT) 88 U/L (8-55); AST (SGOT) 272 U/L (5-34); Albumin 2.2 g/dL (3.4-4.8); Alkaline Phosphatase 83 U/L (40-110); Anion Gap 11 mmol/L (10-20); BUN (Urea Nitrogen) 8 mg/dL (8.4-25.7); Bilirubin, Total 2.1 mg/dL (0.2-1.2); Calc. Creatinine Clearance 94 mL/min (70-130); Calcium 8.1 mg/dL (7.8-10.44); Carbon Dioxide 25 mmol/L (23-31); Chloride 106 mmol/L (98-107); Globulin 5.6 g/dL (2.4-3.5); Glucose 90 mg/dL (80-115); Potassium 3.8 mmol/L (3.5-5.1); Protein, Total 7.8 g/dL (5.8-8.1); Sodium 138 mmol/L (136-145)
[2022-01-14] MEDS: Enoxaparin Sodium 80 MG/0.8 ML SYRINGE SC SCH ×2 (10:19→20:32)
[2022-01-14] MEDS: Aspirin 325 mg Enteric Coated Tablet PO SCH (10:19)
[2022-01-14] MEDS: Metoprolol Tartrate 50 MG TAB PO SCH ×2 (10:19→20:32)
[2022-01-14] MEDS: LACTINEX 1 TAB PO SCH (10:19)
[2022-01-14] MEDS: Morphine 2 MG/ML VIAL SLOW IVP PRN ×3 (13:00→22:16)
[2022-01-14] MEDS: Atorvastatin Calcium 40 MG TAB PO SCH (20:31)
[2022-01-15] MEDS: Vancomycin 25 MG/ML Oral SOLN PO SCH ×4 (02:45→21:53)
[2022-01-15] MEDS: metroNIDAZOLE 250 MG in Admixture Fee 2 EACH IVPB SCH ×5 (02:47→18:10)
[2022-01-15] MEDS: Ciprofloxacin 500 MG TAB PO SCH (05:31)
[2022-01-15 06:39] LABS: Eosinophils 2 % (0-10); Hemoglobin 12.2 g/dL (14.0-18.0); Hypochromia SLIGHT = 6-15 cells (100X) (0-5/hpf); Lymphocytes 40 % (21-51); MDiff Complete? YES; Mean Corpuscular HGB CONC 33.2 g/dL (32.0-36.0); Mean Corpuscular Hemoglobin 32.7 pg (27.0-31.0); Mean Corpuscular Volume 98.4 fL (78.0-98.0); Mean Platelet Volume 7.9 fL (7.4-10.4); Monocytes 9 % (0-10); Neutrophil 49 % (42-75); Platelet Count 132 thou/uL (130-400); Platelet Morphology Comment Appears Adequate; RBC Distribution Width 14.3 % (11.5-14.5); Red Blood Cell (RBC) Count 3.72 mill/uL (4.70-6.10); White Blood Cell (WBC) Count 8.1 thou/uL (4.8-10.8)
[2022-01-15 06:46] LABS: ALT (SGPT) 69 U/L (8-55); AST (SGOT) 189 U/L (5-34); Albumin 1.9 g/dL (3.4-4.8); Alkaline Phosphatase 76 U/L (40-110); Anion Gap 11 mmol/L (10-20); BUN (Urea Nitrogen) 7 mg/dL (8.4-25.7); Bilirubin, Total 1.6 mg/dL (0.2-1.2); Calc. Creatinine Clearance 98 mL/min (70-130); Calcium 7.4 mg/dL (7.8-10.44); Carbon Dioxide 23 mmol/L (23-31); Chloride 107 mmol/L (98-107); Globulin 5.3 g/dL (2.4-3.5); Glucose 71 mg/dL (80-115); Potassium 3.2 mmol/L (3.5-5.1); Protein, Total 7.2 g/dL (5.8-8.1); Sodium 138 mmol/L (136-145)
[2022-01-15] MEDS ORDERED: Potassium Chloride 20 MEQ TAB PO SCH (07:00)
[2022-01-15] MEDS: LACTINEX 1 TAB PO SCH (08:46)
[2022-01-15] MEDS: Aspirin 81 mg Enteric Coated Tablet PO SCH (08:46)
[2022-01-15] MEDS: Metoprolol Tartrate 50 MG TAB PO SCH ×2 (08:46→21:54)
[2022-01-15] MEDS: Apixaban 5 MG TAB PO SCH ×2 (08:46→21:54)
[2022-01-15] MEDS: HYDROcodone/Acetaminophen 10/325 mg Tablet PO PRN ×2 (08:50→18:02)
[2022-01-15] MEDS: Atorvastatin Calcium 40 MG TAB PO SCH (21:54)
[2022-01-16] MEDS: Vancomycin 25 MG/ML Oral SOLN PO SCH ×4 (03:00→21:47)
[2022-01-16] MEDS: metroNIDAZOLE 250 MG in Admixture Fee 2 EACH IVPB SCH ×3 (03:04→16:06)
[2022-01-16 06:09] LABS: #Basophils 0.1 thou/uL (0.0-0.2); #Eosinphils 0.3 thou/uL (0.0-0.7); #Lymphocytes 2.4 thou/uL (1.20-3.40); #Monocytes 0.9 thou/uL (0.11-0.59); #Neutrophils 2.5 thou/uL (1.40-6.50); %Basophils 1.2 % (0.0-1.0); %Eosinophils 4.5 % (0.0-10.0); %Lymphocytes 38.9 % (21.0-51.0); %Monocytes 14.8 % (0.0-10.0); %Neutrophils 40.6 % (42.0-75.0); Mean Corpuscular HGB CONC 32.3 g/dL (32.0-36.0); Mean Corpuscular Hemoglobin 31.9 pg (27.0-31.0); Mean Corpuscular Volume 98.9 fL (78.0-98.0); Mean Platelet Volume 7.8 fL (7.4-10.4); Platelet Count 128 thou/uL (130-400); RBC Distribution Width 14.5 % (11.5-14.5); Red Blood Cell (RBC) Count 3.76 mill/uL (4.70-6.10); White Blood Cell (WBC) Count 6.1 thou/uL (4.8-10.8)
[2022-01-16 06:32] LABS: ALT (SGPT) 62 U/L (8-55); AST (SGOT) 160 U/L (5-34); Albumin 1.9 g/dL (3.4-4.8); Alkaline Phosphatase 72 U/L (40-110); Anion Gap 10 mmol/L (10-20); BUN (Urea Nitrogen) 7 mg/dL (8.4-25.7); Bilirubin, Total 1.4 mg/dL (0.2-1.2); Calc. Creatinine Clearance 99 mL/min (70-130); Calcium 7.3 mg/dL (7.8-10.44); Carbon Dioxide 22 mmol/L (23-31); Chloride 109 mmol/L (98-107); Globulin 5.4 g/dL (2.4-3.5); Glucose 82 mg/dL (80-115); Potassium 3.3 mmol/L (3.5-5.1); Protein, Total 7.3 g/dL (5.8-8.1); Sodium 138 mmol/L (136-145)
[2022-01-16] MEDS ORDERED: Potassium Chloride 20 MEQ TAB PO SCH (07:15)
[2022-01-16] MEDS: HYDROcodone/Acetaminophen 10/325 mg Tablet PO PRN ×3 (09:37→20:50)
[2022-01-16] MEDS: Apixaban 5 MG TAB PO SCH ×2 (09:38→21:47)
[2022-01-16] MEDS: Aspirin 81 mg Enteric Coated Tablet PO SCH (09:38)
[2022-01-16] MEDS: Metoprolol Tartrate 50 MG TAB PO SCH ×2 (09:38→21:47)
[2022-01-16] MEDS: LACTINEX 1 TAB PO SCH (09:38)
[2022-01-16] MEDS: Atorvastatin Calcium 40 MG TAB PO SCH (21:47)
[2022-01-17] MEDS: HYDROcodone/Acetaminophen 10/325 mg Tablet PO PRN ×2 (02:41→14:47)
[2022-01-17] MEDS: metroNIDAZOLE 250 MG in Admixture Fee 2 EACH IVPB SCH ×3 (02:48→16:50)
[2022-01-17] MEDS: Vancomycin 25 MG/ML Oral SOLN PO SCH ×4 (02:48→21:05)
[2022-01-17] MEDS: Apixaban 5 MG TAB PO SCH ×2 (08:22→21:05)
[2022-01-17] MEDS: Aspirin 81 mg Enteric Coated Tablet PO SCH (08:22)
[2022-01-17] MEDS: Metoprolol Tartrate 50 MG TAB PO SCH ×2 (08:22→21:06)
[2022-01-17] MEDS: LACTINEX 1 TAB PO SCH (08:22)
[2022-01-17] MEDS: Morphine 2 MG/ML VIAL SLOW IVP PRN ×4 (08:38→21:06)
[2022-01-17] MEDS: Atorvastatin Calcium 40 MG TAB PO SCH (21:05)
[2022-01-18] MEDS: metroNIDAZOLE 250 MG in Admixture Fee 2 EACH IVPB SCH ×2 (01:38→08:51)
[2022-01-18] MEDS: Vancomycin 25 MG/ML Oral SOLN PO SCH ×4 (01:38→20:01)
[2022-01-18] MEDS: Morphine 2 MG/ML VIAL SLOW IVP PRN ×4 (01:38→20:01)
[2022-01-18] MEDS: Metoprolol Tartrate 50 MG TAB PO SCH ×2 (08:21→20:01)
[2022-01-18] MEDS: LACTINEX 1 TAB PO SCH (08:21)
[2022-01-18] MEDS: Apixaban 5 MG TAB PO SCH ×2 (08:21→20:01)
[2022-01-18] MEDS: Aspirin 81 mg Enteric Coated Tablet PO SCH (08:21)
[2022-01-18 08:23] VITALS: TEMP 97.7
[2022-01-18] MEDS: HYDROcodone/Acetaminophen 10/325 mg Tablet PO PRN ×2 (10:56→22:52)
[2022-01-18] MEDS: metroNIDAZOLE 250 MG TAB PO SCH ×2 (14:42→20:01)
[2022-01-18] MEDS: Atorvastatin Calcium 40 MG TAB PO SCH (20:01)
[2022-01-18 21:14] LABS: SARS-CoV-2 PCR by NAA Not Detected (NotDetected)
[2022-01-19] MEDS: Morphine 2 MG/ML VIAL SLOW IVP PRN ×2 (00:50→08:32)
[2022-01-19] MEDS: Vancomycin 25 MG/ML Oral SOLN PO SCH ×3 (01:32→14:39)
[2022-01-19 07:50] VITALS: BP 109/56
[2022-01-19] MEDS: Apixaban 5 MG TAB PO SCH (08:31)
[2022-01-19] MEDS: Metoprolol Tartrate 50 MG TAB PO SCH (08:31)
[2022-01-19] MEDS: Aspirin 81 mg Enteric Coated Tablet PO SCH (08:31)
[2022-01-19] MEDS: metroNIDAZOLE 250 MG TAB PO SCH ×2 (08:31→14:39)
[2022-01-19] MEDS: LACTINEX 1 TAB PO SCH (08:31)
[2022-01-19 11:23] VITALS: BMI 24.7
[2022-01-19] MEDS: HYDROcodone/Acetaminophen 10/325 mg Tablet PO PRN (14:38)
== END 2022-01-19 15:10 | DRG 871 ==
LOC: ERS 13:45 → 2NO 17:07 → T4-A 01-14 14:22
PROVIDERS: ADMIT Student in an Organized Health Care Education/Training Program; ATTEND Internal Medicine
DX: A41.52 Sepsis due to Pseudomonas (principal); G93.41 Metabolic encephalopathy; K51.00 Ulcerative (chronic) pancolitis without complications; A04.72 Enterocolitis due to Clostridium difficile, not specified as recurrent; I48.92 Unspecified atrial flutter; N30.00 Acute cystitis without hematuria; E87.2 Acidosis; G89.29 Other chronic pain; K21.9 Gastro-esophageal reflux disease without esophagitis; E87.6 Hypokalemia; E11.9 Type 2 diabetes mellitus without complications; K74.60 Unspecified cirrhosis of liver; I25.10 Atherosclerotic heart disease of native coronary artery without angina pectoris; I10 Essential (primary) hypertension; E78.2 Mixed hyperlipidemia; R53.81 Other malaise; I48.0 Paroxysmal atrial fibrillation; Z20.822 Contact with and (suspected) exposure to COVID-19; B18.2 Chronic viral hepatitis C; Z98.890 Other specified postprocedural states; Z90.49 Acquired absence of other specified parts of digestive tract; Z79.01 Long term (current) use of anticoagulants; Z79.82 Long term (current) use of aspirin; Z79.899 Other long term (current) drug therapy
CPT/HCPCS: 36415; 36416; 70450; 71045; 71260; 72125; 74177; 80053; 80306; 81003; 81015; 82140; 82553; 83605; 83735; 84484; 85025; 87040; 87086; 87324; 87449; 93005; 93306; 96365; 96366; 96367; 96368; 96375; 96376; J0696; J1650; J2270; J2405; J2543; J3370; J3475; J3490; Q9967; U0003; U0005

== ENCOUNTER 2022-03-06 11:58 | Emergency (ER) | payer MEDICARE, MEDICAID ==
[2022-03-06] MEDS ORDERED: Ondansetron PF 4 MG/2 ML Vial ONE (13:24)
[2022-03-06] MEDS ORDERED: Morphine 2 MG/ML VIAL ONE ×2 (13:24)
[2022-03-06 13:28] LABS: #Eosinphils 0.1 thou/uL (0.0-0.7); #Lymphocytes 1.6 thou/uL (1.20-3.40); #Monocytes 0.7 thou/uL (0.11-0.59); #Neutrophils 4.3 thou/uL (1.40-6.50); %Basophils 0.6 % (0.0-1.0); %Eosinophils 0.8 % (0.0-10.0); %Lymphocytes 24.3 % (21.0-51.0); %Monocytes 9.9 % (0.0-10.0); %Neutrophils 64.3 % (42.0-75.0); Hemoglobin 9.9 g/dL (14.0-18.0); Mean Corpuscular HGB CONC 32.2 g/dL (32.0-36.0); Mean Platelet Volume 7.2 fL (7.4-10.4); Platelet Count 175 thou/uL (130-400); RBC Distribution Width 14.8 % (11.5-14.5); White Blood Cell (WBC) Count 6.7 thou/uL (4.8-10.8)
[2022-03-06 13:40] LABS: Acetaminophen Less than 10.0 mcg/mL (10.0-30.0); Alcohol Less than 10 mg/dL (Less than 10); Salicylate Less than 8.0 mg/dL (15.0-30.0)
[2022-03-06 13:49] LABS: ALT (SGPT) 22 U/L (8-55); AST (SGOT) 42 U/L (5-34); Albumin 1.9 g/dL (3.4-4.8); Alkaline Phosphatase 76 U/L (40-110); Anion Gap 7 mmol/L (10-20); BUN (Urea Nitrogen) 7 mg/dL (8.4-25.7); Bilirubin, Total 1.8 mg/dL (0.2-1.2); Calc. Creatinine Clearance 0 mL/min (70-130); Calcium 7.8 mg/dL (7.8-10.44); Carbon Dioxide 27 mmol/L (23-31); Chloride 106 mmol/L (98-107); Globulin 5.6 g/dL (2.4-3.5); Glucose 82 mg/dL (80-115); Lipase 34 U/L (8-78); Magnesium 1.9 mg/dL (1.6-2.6); Potassium 3.1 mmol/L (3.5-5.1); Protein, Total 7.5 g/dL (5.8-8.1); Sodium 137 mmol/L (136-145)
[2022-03-06] MEDS ORDERED: Potassium Chloride 20 MEQ TAB ONE (14:53)
[2022-03-06 16:12] LABS: Amphetamine Not Detected (NotDetected); Barbiturates Screen Not Detected (NotDetected); Benzodiazepine Screen Not Detected (NotDetected); Cocaine Metabolite Screen Not Detected (NotDetected); Methadone Not Detected (NotDetected); Methamphetamine Not Detected (NotDetected); Opiate Screen Detected (NotDetected); Oxycodone Screen Not Detected (NotDetected); Phencyclidine (PCP) Not Detected (NotDetected); THC/Cannabinoid Screen Not Detected (NotDetected); Tricyclic Screen Detected (NotDetected)
== END 2022-03-06 15:12 | disposition home or self-care (01) ==
LOC: ERS 11:58
DX: S81.802A Unspecified open wound, left lower leg, initial encounter (principal); E87.6 Hypokalemia; R29.6 Repeated falls; K21.9 Gastro-esophageal reflux disease without esophagitis; E78.5 Hyperlipidemia, unspecified; I10 Essential (primary) hypertension; E11.9 Type 2 diabetes mellitus without complications; W19.XXXA Unspecified fall, initial encounter
CPT/HCPCS: 71045; 73590; 80053; 80306; 80307; 83605; 83690; 83735; 83880; 84484; 85025; 87040; 87070; 87077; 87186; 87205; 93005; 94760; 96374; 96375; 99284; J2270; 36415; J2405